=== PATIENT | male | born 1970 | race Caucasian/White ===

== ENCOUNTER 2017-01-30 15:39 | Emergency (ER) | payer MEDICAID ==
[2017-01-30 15:52] VITALS: BP 131/72
--- NOTE | 2017-01-30 16:34 | CR ---
Clinical history: 46-year-old male injured left index finger (table saw). Interpretation: Disruption of the skin and nail ulnar aspect distal end of the left index finger. The underlying terminal tuft distal phalanx appears to have been "nicked" by the saw but no fracture s. No proximal joint dislocation. No foreign bodies. Adjacent thumb and middle fingers unremarkable except for early arthritic changes .
--- NOTE | 2017-01-30 18:25 | EDM.PDOC ---
Scribed by Bertha Camargo 01/30/17 [id number] for Von Dan MD ED HPI GENERAL MEDICAL PROBLEM - General Chief Complaint: Laceration Stated Complaint: [id number] CUT FINGER AT WORK Time Seen by Provider: 01/30/17 15:50 Source of Information: Reports: Patient, RN, RN Notes Reviewed History Limitations: Reports: No Limitations - History of Present Illness INITIAL COMMENTS - FREE TEXT/NARRATIVE: Complaint of cut left distal index finger on a table saw blade while cutting wood at home. Denies any other injury. Last tetanus vaccine 2 years ago. Location: Reports: Upper Extremity, Left Quality: Reports: Ache Severity: Mild Improves with: Reports: None Worsens with: Reports: None Associated Symptoms: Reports: No Other Symptoms Right Hand Pain Score (Numeric/FACES): 4 - Related Data Allergies Allergy/AdvReac Type Severity Reaction Status Date / Time No Known Allergies Allergy Verified 05/27/15 20:45 Home Meds: Home Meds metFORMIN [Glucophage] 500 mg PO DAILY 05/27/15 [History] Social & Family History - Tobacco Use Smoking Status *Q: Current Every Day Smoker Years of Tobacco use: 15 Packs/Tins Daily: 1 - Recreational Drug Use Recreational Drug Use: No Review of Systems - Review of Systems Review Of Systems: ROS reveals no pertinent complaints other than HPI. ED EXAM, GENERAL - Physical Exam Exam: See Below Exam Limited By: No Limitations General Appearance: Alert, WD/WN, No Apparent Distress Respiratory/Chest: No Respiratory Distress Cardiovascular: Normal Peripheral Pulses (at bilateral upper extremities. ) Extremities: Other (Deep soft tissue avulsion of left distal index finger without nail damage. No active bleeding. No foreign body. ) Neurological: Alert, Oriented, CN II-XII Intact, Normal Cognition, Normal Gait, Normal Reflexes, No Motor/Sensory Deficits Psychiatric: Normal Affect, Normal Mood Course - Vital Signs Last Recorded V/S: Last Vital Signs Temp 36.6 C 01/30/17 15:50 Pulse 86 01/30/17 15:50 Resp 20 01/30/17 15:50 BP 131/72 01/30/17 15:50 Pulse Ox 100 01/30/17 15:50 - Radiology Interpretation Free Text/Narrative:: Left hand x-ray: Per rad report reveals no fracture. - Re-Assessments/Exams Free Text/Narrative Re-Assessment/Exam: 01/30/17 17:17 Wound cleansed and dressed by RN. 01/30/17 17:18 No procedural wound care by physician. Departure - Departure Time of Disposition: 17:14 Disposition: Home, Self-Care 01 Condition: Good Clinical Impression: Soft tissue avulsion, Laceration of left index finger - Discharge Information Instructions: Deep Skin Avulsion Referrals: Kisha Hsu, LE[facility] OPERATOR [Primary Care Provider] - Forms: ED Department Discharge Additional Instructions: Change the dressing in 24 hours. Try to leave the Xeroform in place as long as possible. Follow up in clinic next week if needed. Return to ER if any signs of infection develop. I have read and agree with the documentation that has been completed regarding this visit. By signing this record, I attest that the documentation was completed in my physical presence and is an accurate record of the encounter.
== END 2017-01-30 17:19 | disposition home or self-care (01) ==
LOC: DL.ED 15:39
DX: S61.211A Laceration without foreign body of left index finger without damage to nail, initial encounter (principal); F17.210 Nicotine dependence, cigarettes, uncomplicated; W26.9XXA Contact with unspecified sharp object(s), initial encounter
CPT/HCPCS: 73140-F1; 99283

== ENCOUNTER 2017-05-02 07:59 | Day surgery (SDC) | payer MEDICAID ==
[~2017-05-02 07:59] MED LIST: Midazolam 1 MG/ML 2 ML SDV ONE
[2017-05-02] MEDS ORDERED: Midazolam 1 MG/ML 2 ML SDV IV ONE ×4 (08:00→08:47)
[2017-05-02] MEDS ORDERED: fentaNYL 100 MCG/2 ML SDV IV ONE ×4 (08:00→08:52)
[2017-05-02] MEDS ORDERED: fentaNYL 100 MCG/2 ML SDV ONE (08:17)
[2017-05-02] MEDS ORDERED: Lactated Ringers 1,000 ML IV SCH (08:30)
--- NOTE | 2017-05-02 09:46 | OR ---
DATE: 05/02/2017 PREOPERATIVE DIAGNOSIS: Rectal bleeding. POSTOPERATIVE DIAGNOSIS: Rectal bleeding. PROCEDURES: Total colonoscopy with snare excision of a small 2-3 mm sigmoid polyp. ANESTHESIA: Conscious sedation. SPECIMEN: Polyps. OPERATIVE FINDINGS: Normal colonoscopy except for 1 small polyp. He really does not even have any significant hemorrhoids either external or internal that would account for his bleeding. The polyp should certainly be not the source of his bleeding. RECOMMENDATION: Follow up colonoscopy 5 years for polyp surveillance. INDICATION FOR PROCEDURE: This 47-year-old male has intermittent bright red rectal bleeding with bowel function. DESCRIPTION OF PROCEDURE: After adequate preparation, a colonoscope was inserted into the rectum. This was passed all the way to the cecum. Confirmation of the cecum was made by visualization of the ileocecal valve on palpation in the right lower quadrant. The bowel prep was excellent. On withdrawal of the scope, a good examination of the colon was accomplished. The patient has no large masses, bleeding sites, colitis, or diverticula. He did have one small 2 to 3 mm polyp in the lower sigmoid colon. A snare was placed around this and this was clipped off and retrieved for pathological evaluation. Rectal examination is normal. Air was suctioned from the colon and the scope was removed. [facility] /[id number]
[2017-05-02 12:32] VITALS: BP 114/75
== END 2017-05-02 10:47 | disposition home or self-care (01) ==
LOC: DL.ENDO 07:59
PROVIDERS: ATTEND Surgery
DX: K63.5 Polyp of colon (principal); F17.200 Nicotine dependence, unspecified, uncomplicated; E11.9 Type 2 diabetes mellitus without complications; Z79.4 Long term (current) use of insulin; Z79.899 Other long term (current) drug therapy
CPT/HCPCS: 45385; J2250; J3010; J7120

== ENCOUNTER 2017-11-24 10:37 | Emergency (ER) | payer MEDICAID, OTHER ==
[2017-11-24] MEDS ORDERED: Bacitracin Oint 1 GM U/D Packet TOP ONE (11:07)
[2017-11-24] MEDS ORDERED: Lidocaine 1% 30 ML SDV INJECT ONE (11:08)
[2017-11-24] MEDS ORDERED: Cephalexin 500 MG Cap PO ONE (11:08)
[2017-11-24 11:12] VITALS: BP 138/91
--- NOTE | 2017-11-24 12:26 | EDM.PDOC ---
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 Denies any crush injury. Patient controlled the bleeding with direct pressure. Reports minor abrasion to knuckles of the left hand, but denies any other injury. Last tetanus vaccine less then 5 years ago per patient. Onset: Today Location: Reports: Lower Extremity, Right Quality: Reports: Ache Severity: Mild Improves with: Reports: None Worsens with: Reports: None Associated Symptoms: Reports: No Other Symptoms - Related Data Allergies Allergy/AdvReac Type Severity Reaction Status Date / Time No Known Allergies Allergy Verified 05/02/17 08:26 Home Meds: Home Meds metFORMIN [Glucophage] 1,000 mg PO BID 05/27/15 [History] Aspirin [Ecotrin] 81 mg PO DAILY 04/30/17 [History] Cholecalciferol (Vitamin D3) [Vitamin D3] 1,000 mg PO DAILY 04/30/17 [History] Fish Oil/[place]-3 Fatty Acids [Fish Oil 1,000 MG] 1 gm PO DAILY 04/30/17 [History ] Insulin Aspart [Novolog Flexpen] 4 units SQ BIDMEALS 04/30/17 [History] Insulin Detemir [Levemir] 20 units SQ BEDTIME 04/30/17 [History] Multivitamin [Men's Multi-Vitamin] 1 tab PO DAILY 04/30/17 [History] Past Medical History HEENT History: Reports: Impaired Vision Cardiovascular History: Reports: High Cholesterol, Other (See Below) Other Cardiovascular History: CHRONIC VENOUS INSUFFICIENCY Respiratory History: Reports: None Gastrointestinal History: Reports: Hemorrhoids Genitourinary History: Reports: None Musculoskeletal History: Reports: None Neurological History: Reports: None Psychiatric History: Reports: None Endocrine/Metabolic History: Reports: Diabetes, Type II Hematologic History: Reports: None Immunologic History: Reports: None Oncologic (Cancer) History: Reports: None Dermatologic History: Reports: None - Infectious Disease History Infectious Disease History: Reports: Chicken Pox - Past Surgical History HEENT Surgical History: Reports: None Cardiovascular Surgical History: Reports: None Respiratory Surgical History: Reports: None GI Surgical History: Reports: None Endocrine Surgical History: Reports: None Neurological Surgical History: Reports: None Musculoskeletal Surgical History: Reports: Other (See Below) Other Musculoskeletal Surgeries/Procedures:: varicose vein stripping Social & Family History - Family History Family Medical History: Noncontributory - Tobacco Use Smoking Status *Q: Current Every Day Smoker Years of Tobacco use: 15 Packs/Tins Daily: 1 Second Hand Smoke Exposure: Yes - Caffeine Use Caffeine Use: Reports: Coffee, Soda - Recreational Drug Use Recreational Drug Use: No - Living Situation & Occupation Living situation: Reports: with Significant Other Occupation: Employed Review of Systems - Review of Systems Review Of Systems: ROS reveals no pertinent complaints other than HPI. ED EXAM, GENERAL - Physical Exam Exam: See Below Exam Limited By: No Limitations General Appearance: Alert, WD/WN, No Apparent Distress Head: Atraumatic, Normocephalic Respiratory/Chest: No Respiratory Distress Extremities: Other (right fourth finger 1.5cm irregular lacerationto depth of subcutaneous tissue.No active bleeding. No foriegn body. Full range of motion. ) Neurological: Alert, No Motor/Sensory Deficits ED TRAUMA EXTREMITY PROCEDURES - Laceration/Wound Repair Right Finger Lac/Wound Length In cm: 1.5 Appearance: Subcutaneous, Irregular, Clean Distal NVT: Neuro & Vascular Intact, No Tendon Injury Anesthetic Type: Digital Local Anesthesia - Lidocaine (Xylocaine): 1% Plain Local Anesthetic Volume: 4cc Skin Prep: Chlorhexidine (Hibiciens), Saline Saline Irrigation (cc's): 500 Exploration/Debridement/Repair: Wound Explored, In a Bloodless Field, Explored to Base, Minimal Debridement, Moderate Debridement Closed With: Sutures Suture Size: 3-0 # of Sutures: 8 Suture Type: Nylon, Interrupted Drain Placement: No Sterile Dressing Applied: Nurse Tetanus Status Addressed: Yes Complications: No Course - Vital Signs Last Recorded V/S: Last Vital Signs Temp 37.1 C 11/24/17 11:10 Pulse 90 11/24/17 11:10 Resp 18 11/24/17 11:10 BP 138/91 H 11/24/17 11:10 Pulse Ox 99 11/24/17 11:10 - Orders/Labs/Meds Meds: Medications Discontinued Medications Generic Name Dose Route Start Last Admin Trade Name Marie PRN Reason Stop Dose Admin Bacitracin 1 dose 11/24/17 11:07 Bacitracin Oint 1 Gm TOP 11/24/17 11:08 ONETIME ONE Cephalexin 500 mg 11/24/17 11:08 Keflex PO 11/24/17 11:09 ONETIME ONE Lidocaine HCl 30 ml 11/24/17 11:08 Xylocaine-Mpf 1% INJECT 11/24/17 11:09 ONETIME ONE Departure - Departure Time of Disposition: 12:18 Disposition: Home, Self-Care 01 Condition: Good Clinical Impression: Laceration of right ring finger Qualifiers: Encounter type: initial encounter Damage to nail status: without damage Foreign body presence: without foreign body Qualified Code(s): S61.214A - Laceration without foreign body of right ring finger without damage to nail, initial encounter - Discharge Information Instructions: Laceration Care, Adult, [id number] Forms: ED Department Discharge Additional Instructions: RX: Cephalexin 500mg. Follow up for suture removal in 7 to 10 days in clinic. Return to ER if any signs of infection develop. I have read and agree with the documentation that has been completed regarding this visit. By signing this record, I attest that the documentation was completed in my physical presence and is an accurate record of the encounter.
== END 2017-11-24 12:25 | disposition home or self-care (01) ==
LOC: DL.ED 10:37
DX: S61.214A Laceration without foreign body of right ring finger without damage to nail, initial encounter (principal); E78.00 Pure hypercholesterolemia, unspecified; E11.9 Type 2 diabetes mellitus without complications; F17.210 Nicotine dependence, cigarettes, uncomplicated; Z79.899 Other long term (current) drug therapy; Z79.82 Long term (current) use of aspirin; Z79.4 Long term (current) use of insulin; W26.8XXA Contact with other sharp object(s), not elsewhere classified, initial encounter
CPT/HCPCS: 12002; 99282; A9270

== ENCOUNTER 2018-09-17 18:47 | Emergency (ER) | payer BC, OTHER ==
[2018-09-17 19:55] VITALS: BP 112/86
== END 2018-09-17 19:50 | disposition left against medical advice (07) ==
LOC: DL.ED 18:47
DX: Z53.21 Procedure and treatment not carried out due to patient leaving prior to being seen by health care provider (principal)
CPT/HCPCS: 82962; 99281

== ENCOUNTER 2020-01-03 20:07 | Observation (INO) | payer BC ==
[2020-01-03] MEDS ORDERED: Sodium Chloride 0.9% 1,000 ML IV ONE ×2 (20:35→22:04)
[2020-01-03] MEDS ORDERED: Insulin Regular, Human 100 Units/ML 3 ML Vial IV ONE (20:52)
--- NOTE | 2020-01-03 21:14 | EDM.PDOC ---
ED HPI GENERAL MEDICAL PROBLEM - General Chief Complaint: Diabetic Complaint Stated Complaint: diabetic problems Time Seen by Provider: 01/03/20 20:30 Source of Information: Reports: Patient, RN History Limitations: Reports: No Limitations - History of Present Illness INITIAL COMMENTS - FREE TEXT/NARRATIVE: ED states was contacted by email on Saturday that blood sugar high and patient needed to go to ED. Stated was busy during weekend so presents now. Has not check blood sugar for greater than one month, Told to increase bedtime insulin to #* took 44 tonight. Has sliding scale but does not usually take. Increased frequency of urination, No weakness. Some swelling lower extremities right greater, Decreased when wears compression stockings at night. Denies skin break down. No nausea or vomiting. Relates eating 1-2 meals per day at most may go 3- 4 days without solid meal with only snack bar in afternoon. - Related Data Allergies Allergy/AdvReac Type Severity Reaction Status Date / Time No Known Allergies Allergy Verified 01/03/20 22:44 Home Meds: Home Meds metFORMIN [Glucophage] 1,000 mg PO BID 05/27/15 [History] Insulin Aspart [Novolog Flexpen] 6 units SQ BIDMEALS 04/30/17 [History] Insulin Detemir [Levemir] 33 units SQ BEDTIME 04/30/17 [History] Aspirin [Halfprin] 81 mg PO DAILY 06/03/19 [History] Fish Oil/Harper-3 Fatty Acids [Fish Oil 1,000 MG] 1 cap PO DAILY 06/03/19 [ History] Past Medical History HEENT History: Reports: Impaired Vision Cardiovascular History: Reports: Heart Murmur, High Cholesterol, Other (See Below) Other Cardiovascular History: CHRONIC VENOUS INSUFFICIENCY Respiratory History: Reports: None Gastrointestinal History: Reports: Colon Polyp, Hemorrhoids Genitourinary History: Reports: None Musculoskeletal History: Reports: Other (See Below) Other Musculoskeletal History: Fx rt. hand Neurological History: Reports: None Psychiatric History: Reports: Depression Other Psychiatric History: States he has been depressed since his devorce 4 year ago. Endocrine/Metabolic History: Reports: Diabetes, Type II Hematologic History: Reports: None Immunologic History: Reports: None Oncologic (Cancer) History: Reports: None Dermatologic History: Reports: None, Other (See Below) Other Dermatologic History: INFECTED CYST RIGHT SCROTUM - Infectious Disease History Infectious Disease History: Reports: Chicken Pox - Past Surgical History HEENT Surgical History: Reports: None Cardiovascular Surgical History: Reports: None Respiratory Surgical History: Reports: None GI Surgical History: Reports: Colonoscopy, Polypectomy Male Surgical History: Reports: None Endocrine Surgical History: Reports: None Neurological Surgical History: Reports: None Musculoskeletal Surgical History: Reports: Other (See Below) Other Musculoskeletal Surgeries/Procedures:: varicose vein stripping. PLATE AND SCREWS IN RIGHT HAND Dermatological Surgical History: Reports: None Social & Family History - Family History Family Medical History: Noncontributory - Tobacco Use Smoking Status *Q: Current Every Day Smoker Years of Tobacco use: 30 Packs/Tins Daily: 2 - Caffeine Use Caffeine Use: Reports: Coffee - Recreational Drug Use Recreational Drug Use: No - Living Situation & Occupation Living situation: Reports: with Significant Other Occupation: Employed ED ROS GENERAL - Review of Systems Review Of Systems: Comprehensive ROS is negative, except as noted in HPI. ED EXAM GENERAL NO PERIP PULSE - Physical Exam Exam: See Below Exam Limited By: No Limitations General Appearance: Alert, No Apparent Distress, Thin Eye Exam: Bilateral Eye: EOMI, PERRL Ears: Normal External Exam Nose: Normal Inspection Throat/Mouth: Normal Inspection, Normal Oropharynx, Normal Voice, No Airway Compromise Head: Atraumatic, Normocephalic Neck: Normal Inspection, Full Range of Motion Respiratory/Chest: No Respiratory Distress, Lungs Clear Cardiovascular: Normal Peripheral Pulses, Regular Rate, Rhythm GI/Abdominal: Normal Bowel Sounds, Soft, Non-Tender Extremities: Normal Inspection, Normal Range of Motion. No: No Pedal Edema (2+ bilateral), Leg Pain Neurological: Alert, Oriented, Normal Cognition Psychiatric: Normal Affect, Normal Mood, Tearful Skin Exam: Warm, Dry, Intact, Normal Color, No Rash Course - Vital Signs Last Recorded V/S: Last Vital Signs Temp 98.1 F 01/04/20 04:00 Pulse 83 01/04/20 04:00 Resp 18 01/04/20 04:00 BP 96/61 01/04/20 04:00 Pulse Ox 98 01/04/20 04:00 - Orders/Labs/Meds Orders: Active Orders 24 hr Category Date Time Status Insulin Regular, Human [HumuLIN R] 100 unit Med 01/03/20 22:00 Active Sodium Chloride 0.9% [Normal Saline] 99 ml IV TITRATE Medication Orders Acetaminophen (Tylenol) 650 mg PO Q4H PRN PRN Reason: Pain (Mild 1-3)/fever Last Admin: 01/04/20 02:41 Dose: 650 mg Aspirin (Halfprin) 81 mg PO DAILY [facility] Dextrose/Water (Dextrose 50% In Water) 25 ml IVPUSH ASDIRECTED PRN PRN Reason: Hypoglycemia Enoxaparin Sodium (Lovenox) 40 mg SUBCUT DAILY OH Glucagon (Glucagen) 1 mg IM ONETIME PRN PRN Reason: Hypoglycemia Insulin Human Regular 100 unit (/ Sodium Chloride) 100 mls @ 8.3 mls/hr IV TITRATE OH; Protocol Last Titration: 01/04/20 02:38 Dose: 0 units/kg/hr, 0 mls/hr Titration: 01/04/20 01:26 Dose: 0.11 units/kg/hr, 9.3 mls/hr Titration: 01/03/20 23:30 Dose: 0.07 units/kg/hr, 6.2 mls/hr Admin: 01/03/20 22:08 Dose: 0.1 units/kg/hr, 8.3 mls/hr Insulin Human Lispro (Humalog) 0 unit SUBCUT BIDAC OH; Protocol Ondansetron HCl (Zofran Odt) 4 mg PO Q6H PRN PRN Reason: nausea, able to take PO Ondansetron HCl (Zofran) 4 mg IVPUSH Q6H PRN PRN Reason: Nausea/Vomiting Senna/Docusate Sodium (Senna Plus) 1 tab PO BEDTIME PRN PRN Reason: Constipation Labs: Laboratory Tests 01/03/20 01/03/20 01/03/20 Range/Units 20:17 20:30 20:30 WBC 5.1 (5.0-10.0) 10^3/uL RBC 3.88 L (4.6-6.2) 10^6/uL Hgb 12.6 L (14.0-18.0) g/dL Hct 36.1 L (40.0-54.0) % MCV 93.0 D (80-100) fL MCH 32.5 (27.0-34.0) pg MCHC 34.9 (33.0-35.0) g/dL Plt Count 177 (150-450) 10^3/uL Neut % (Auto) 69.6 (42.2-75.2) % Lymph % (Auto) 18.1 L (20.5-50.1) % [place] % (Auto) 10.3 H (2-8) % Eos % (Auto) 1.4 (1.0-3.0) % Baso % (Auto) 0.6 (0.0-1.0) % Sodium 126 L (136-145) mmol/L Potassium 4.5 (3.5-5.1) mmol/L Chloride 91 L (98-107) mmol/L Carbon Dioxide 24 (21-32) mmol/L Anion Gap 15.5 H (7-13) mEq/L BUN 16 (7-18) mg/dL Creatinine 1.00 (0.70-1.30) mg/dL Est Cr Clr Drug Dosing 101.61 mL/min Estimated GFR (MDRD) > 60 BUN/Creatinine Ratio 16.0 (No establ ref range) Glucose 623 H* (74-99) mg/dL POC Glucose > 500 H* (70-105) mg/dl Lactic Acid (0.4-2.0) mmol/L Calcium 8.4 L (8.5-10.1) mg/dL Total Bilirubin 0.3 (0.2-1.0) mg/dL AST 20 (15-37) U/L ALT 29 (16-63) U/L Alkaline Phosphatase 112 (46-116) U/L Total Protein 5.7 L (6.4-8.2) g/dL Albumin 3.3 L (3.4-5.0) g/dL Globulin 2.4 g/dL Albumin/Globulin Ratio 1.38 Amylase 28 (25-115) U/L Lipase 111 (73-393) U/L Urine Color (YELLOW) Urine Appearance (CLEAR) Urine pH (5.0-9.0) Ur Specific [place] (1.005-1.030) Urine Protein (NEGATIVE) Urine Glucose (UA) (NEGATIVE) Urine Ketones (NEGATIVE) Urine Occult Blood (NEGATIVE) Urine Nitrite (NEGATIVE) Urine Bilirubin (NEGATIVE) Urine Urobilinogen (0.2-1.0) mg/dL Ur Leukocyte Esterase (NEGATIVE) Urine RBC /HPF Urine WBC (0-5/HPF) /HPF Ur Epithelial Cells (NOT SEEN) /HPF Urine Bacteria (0-FEW/HPF) /HPF Urine Opiates Screen (NEGATIVE) Ur Oxycodone Screen (NEGATIVE) Urine Methadone Screen (NEGATIVE) Ur Barbiturates Screen (NEGATIVE) U Tricyclic Antidepress (NEGATIVE) Ur Phencyclidine Scrn (NEGATIVE) Ur Amphetamine Screen (NEGATIVE) U Methamphetamines Scrn (NEGATIVE) Urine MDMA Screen (NEGATIVE) U Benzodiazepines Scrn (NEGATIVE) Urine Cocaine Screen (NEGATIVE) U Marijuana (THC) Screen (NEGATIVE) Ketones Negative 01/03/20 01/03/20 01/03/20 Range/Units 20:30 20:35 20:35 WBC (5.0-10.0) 10^3/uL RBC (4.6-6.2) 10^6/uL Hgb (14.0-18.0) g/dL Hct (40.0-54.0) % MCV (80-100) fL MCH (27.0-34.0) pg MCHC (33.0-35.0) g/dL Plt Count (150-450) 10^3/uL Neut % (Auto) (42.2-75.2) % Lymph % (Auto) (20.5-50.1) % [place] % (Auto) (2-8) % Eos % (Auto) (1.0-3.0) % Baso % (Auto) (0.0-1.0) % Sodium (136-145) mmol/L Potassium (3.5-5.1) mmol/L Chloride (98-107) mmol/L Carbon Dioxide (21-32) mmol/L Anion Gap (7-13) mEq/L BUN (7-18) mg/dL Creatinine (0.70-1.30) mg/dL Est Cr Clr Drug Dosing mL/min Estimated GFR (MDRD) BUN/Creatinine Ratio (No establ ref range) Glucose (74-99) mg/dL POC Glucose (70-105) mg/dl Lactic Acid 1.5 (0.4-2.0) mmol/L Calcium (8.5-10.1) mg/dL Total Bilirubin (0.2-1.0) mg/dL AST (15-37) U/L ALT (16-63) U/L Alkaline Phosphatase (46-116) U/L Total Protein (6.4-8.2) g/dL Albumin (3.4-5.0) g/dL Globulin g/dL Albumin/Globulin Ratio Amylase (25-115) U/L Lipase (73-393) U/L Urine Color Yellow (YELLOW) Urine Appearance Slightly cloudy (CLEAR) Urine pH 6.0 (5.0-9.0) Ur Specific [place] 1.010 (1.005-1.030) Urine Protein Negative (NEGATIVE) Urine Glucose (UA) >=1000 H (NEGATIVE) Urine Ketones Negative (NEGATIVE) Urine Occult Blood Trace-intact H (NEGATIVE) Urine Nitrite Negative (NEGATIVE) Urine Bilirubin Negative (NEGATIVE) Urine Urobilinogen 0.2 (0.2-1.0) mg/dL Ur Leukocyte Esterase Negative (NEGATIVE) Urine RBC Not seen /HPF Urine WBC Not seen (0-5/HPF) /HPF Ur Epithelial Cells Rare (NOT SEEN) /HPF Urine Bacteria Rare (0-FEW/HPF) /HPF Urine Opiates Screen Negative (NEGATIVE) Ur Oxycodone Screen Negative (NEGATIVE) Urine Methadone Screen Negative (NEGATIVE) Ur Barbiturates Screen Negative (NEGATIVE) U Tricyclic Antidepress Negative (NEGATIVE) Ur Phencyclidine Scrn Negative (NEGATIVE) Ur Amphetamine Screen Negative (NEGATIVE) U Methamphetamines Scrn Negative (NEGATIVE) Urine MDMA Screen Negative (NEGATIVE) U Benzodiazepines Scrn Negative (NEGATIVE) Urine Cocaine Screen Negative (NEGATIVE) U Marijuana (THC) Screen Negative (NEGATIVE) Ketones 01/03/20 Range/Units 21:42 WBC (5.0-10.0) 10^3/uL RBC (4.6-6.2) 10^6/uL Hgb (14.0-18.0) g/dL Hct (40.0-54.0) % MCV (80-100) fL MCH (27.0-34.0) pg MCHC (33.0-35.0) g/dL Plt Count (150-450) 10^3/uL Neut % (Auto) (42.2-75.2) % Lymph % (Auto) (20.5-50.1) % [place] % (Auto) (2-8) % Eos % (Auto) (1.0-3.0) % Baso % (Auto) (0.0-1.0) % Sodium (136-145) mmol/L Potassium (3.5-5.1) mmol/L Chloride (98-107) mmol/L Carbon Dioxide (21-32) mmol/L Anion Gap (7-13) mEq/L BUN (7-18) mg/dL Creatinine (0.70-1.30) mg/dL Est Cr Clr Drug Dosing mL/min Estimated GFR (MDRD) BUN/Creatinine Ratio (No establ ref range) Glucose (74-99) mg/dL POC Glucose > 500 H* (70-105) mg/dl Lactic Acid (0.4-2.0) mmol/L Calcium (8.5-10.1) mg/dL Total Bilirubin (0.2-1.0) mg/dL AST (15-37) U/L ALT (16-63) U/L Alkaline Phosphatase (46-116) U/L Total Protein (6.4-8.2) g/dL Albumin (3.4-5.0) g/dL Globulin g/dL Albumin/Globulin Ratio Amylase (25-115) U/L Lipase (73-393) U/L Urine Color (YELLOW) Urine Appearance (CLEAR) Urine pH (5.0-9.0) Ur Specific [place] (1.005-1.030) Urine Protein (NEGATIVE) Urine Glucose (UA) (NEGATIVE) Urine Ketones (NEGATIVE) Urine Occult Blood (NEGATIVE) Urine Nitrite (NEGATIVE) Urine Bilirubin (NEGATIVE) Urine Urobilinogen (0.2-1.0) mg/dL Ur Leukocyte Esterase (NEGATIVE) Urine RBC /HPF Urine WBC (0-5/HPF) /HPF Ur Epithelial Cells (NOT SEEN) /HPF Urine Bacteria (0-FEW/HPF) /HPF Urine Opiates Screen (NEGATIVE) Ur Oxycodone Screen (NEGATIVE) Urine Methadone Screen (NEGATIVE) Ur Barbiturates Screen (NEGATIVE) U Tricyclic Antidepress (NEGATIVE) Ur Phencyclidine Scrn (NEGATIVE) Ur Amphetamine Screen (NEGATIVE) U Methamphetamines Scrn (NEGATIVE) Urine MDMA Screen (NEGATIVE) U Benzodiazepines Scrn (NEGATIVE) Urine Cocaine Screen (NEGATIVE) U Marijuana (THC) Screen (NEGATIVE) Ketones Meds: Medications Generic Name Dose Route Start Last Admin Trade Name Freq PRN Reason Stop Dose Admin Acetaminophen 650 mg 01/03/20 22:46 01/04/20 02:41 Tylenol PO 650 mg Q4H PRN Administration Pain (Mild 1-3)/fever Aspirin 81 mg 01/04/20 09:00 Halfprin PO DAILY OH Dextrose/Water 25 ml 01/03/20 22:46 Dextrose 50% In Water IVPUSH ASDIRECTED PRN Hypoglycemia Enoxaparin Sodium 40 mg 01/04/20 09:00 Lovenox SUBCUT DAILY OH Glucagon 1 mg 01/03/20 22:46 Glucagen IM ONETIME PRN Hypoglycemia Insulin Human Regular 100 unit 100 mls @ 8.3 mls/hr 01/03/20 22:00 01/04/20 02:38 / Sodium Chloride IV 0 units/kg/hr TITRATE OH 0 mls/hr Titration Protocol 0.1 UNITS/KG/HR Insulin Human Lispro 0 unit 01/04/20 06:00 Humalog SUBCUT BIDAC [facility] Protocol Ondansetron HCl 4 mg 01/03/20 22:46 Zofran Odt PO Q6H PRN nausea, able to take PO Ondansetron HCl 4 mg 01/03/20 22:46 Zofran IVPUSH Q6H PRN Nausea/Vomiting Senna/Docusate Sodium 1 tab 01/03/20 22:46 Senna Plus PO BEDTIME PRN Constipation Discontinued Medications Generic Name Dose Route Start Last Admin Trade Name Freq PRN Reason Stop Dose Admin Sodium Chloride 1,000 mls @ 999 mls/hr 01/03/20 20:35 01/03/20 20:51 Normal Saline IV 01/03/20 21:35 999 mls/hr .BOLUS ONE Administration Sodium Chloride 1,000 mls @ 999 mls/hr 01/03/20 22:04 01/03/20 22:10 Normal Saline IV 01/03/20 23:04 999 mls/hr .BOLUS ONE Administration Insulin Glargine 33 unit 01/03/20 23:18 01/03/20 23:53 Lantus SUBCUT 01/03/20 23:19 33 unit ONETIME ONE Administration Insulin Human Regular 10 unit 01/03/20 20:52 01/03/20 20:59 Humulin R IV 01/03/20 20:53 10 units ONETIME ONE Administration Potassium Chloride 40 meq 01/03/20 23:14 01/03/20 23:52 Klor-Con 10 PO 01/03/20 23:15 40 meq ONETIME ONE Administration - Re-Assessments/Exams Free Text/Narrative Re-Assessment/Exam: 01/04/20 05:31 Dr Granda admit observation, hyperglycemia Departure - Departure Time of Disposition: 22:20 Disposition: Refer to Observation Condition: Good Clinical Impression: Hyperglycemia - Discharge Information Sepsis Event Note (ED) - Evaluation Sepsis Screening Result: No Definite Risk - Focused Exam Vital Signs: Vital Signs Temp Pulse Resp BP Pulse Ox 01/03/20 20:20 98.4 F 95 16 127/81 100 - My Orders Last 24 Hours: My Active Orders 01/03/20 22:00 Insulin Regular, Human [HumuLIN R] 100 unit Sodium Chloride 0.9% [Normal Saline] 99 ml IV TITRATE - Assessment/Plan Last 24 Hours: My Active Orders 01/03/20 22:00 Insulin Regular, Human [HumuLIN R] 100 unit Sodium Chloride 0.9% [Normal Saline] 99 ml IV TITRATE
[2020-01-03 21:42] LABS: ANION GAP 15.5 mEq/L (7-13); CHLORIDE,CL 91 mmol/L (98-107); SODIUM,NA 126 mmol/L (136-145)
[2020-01-03] MEDS ORDERED: Ondansetron 4 MG Tab.DIS PO PRN (22:46)
[2020-01-03] MEDS ORDERED: Ondansetron 4 MG/2 ML SDV IVPUSH PRN (22:46)
[2020-01-03] MEDS ORDERED: Glucagon,Human Recombinant 1 MG Vial IM PRN (22:46)
[2020-01-03] MEDS ORDERED: Acetaminophen 325 MG Tab PO PRN (22:46)
[2020-01-03] MEDS ORDERED: 50% Dextrose in Water 50 ML Syringe IVPUSH PRN (22:46)
--- NOTE | 2020-01-03 23:01 | PCM.HP ---
H&P History of Present Illness - General Date of Service: 01/03/20 Admit Problem/Dx: Admission Diagnosis/Problem Admission Diagnosis/Problem Hyperglycemia Source of Information: Patient, Old Records, Provider History Limitations: Reports: No Limitations - History of Present Illness Initial Comments - Free Text/Narative: Patient is a 49-year-old male with medical history significant for type 2 diabetes, chronic low back pain, chronic venous insufficiency, and tobacco use who presented to the ED with complaints of elevated blood sugar. Patient reports that he had his labs checked in clinic on Saturday. States that he was called and instructed to come to the ED because his blood sugar was high. Decided come tonight because he has obligations at home. Reports that he has been intermittently nonadherent to his medications because of stressors in his life but he does not want to expound upon. States that he does not have any problem with access to medications. Stated over the past 1 week, he has been taking his medications because he knew that he had almost hit rock bottom. He denies chest pain, shortness of breath, fevers, chills, nausea, vomiting, diarrhea, constipation, dysuria, hematuria, edema, or any other symptoms. He reports that he smokes 2 packs of cigarettes daily. Denies any illicit drug use. States that he drinks alcohol on special occasions, nocturia once a month. - Related Data Allergies/Adverse Reactions: Allergies Allergy/AdvReac Type Severity Reaction Status Date / Time No Known Allergies Allergy Verified 01/03/20 22:44 Home Medications: Home Meds metFORMIN [Glucophage] 1,000 mg PO BID 05/27/15 [History] Insulin Aspart [Novolog Flexpen] 6 units SQ BIDMEALS 04/30/17 [History] Insulin Detemir [Levemir] 33 units SQ BEDTIME 04/30/17 [History] Aspirin [Halfprin] 81 mg PO DAILY 06/03/19 [History] Fish Oil/[place]-3 Fatty Acids [Fish Oil 1,000 MG] 1 cap PO DAILY 06/03/19 [ History] Past Medical History HEENT History: Reports: Impaired Vision Cardiovascular History: Reports: Heart Murmur, High Cholesterol, Other (See Below) Other Cardiovascular History: CHRONIC VENOUS INSUFFICIENCY Respiratory History: Reports: None Gastrointestinal History: Reports: Colon Polyp, Hemorrhoids Genitourinary History: Reports: None Musculoskeletal History: Reports: Other (See Below) Other Musculoskeletal History: Fx rt. hand Neurological History: Reports: None Psychiatric History: Reports: Depression Other Psychiatric History: States he has been depressed since his devorce 4 year ago. Endocrine/Metabolic History: Reports: Diabetes, Type II Hematologic History: Reports: None Immunologic History: Reports: None Oncologic (Cancer) History: Reports: None Dermatologic History: Reports: None, Other (See Below) Other Dermatologic History: INFECTED CYST RIGHT SCROTUM - Infectious Disease History Infectious Disease History: Reports: Chicken Pox - Past Surgical History HEENT Surgical History: Reports: None Cardiovascular Surgical History: Reports: None Respiratory Surgical History: Reports: None GI Surgical History: Reports: Colonoscopy, Polypectomy Male Surgical History: Reports: None Endocrine Surgical History: Reports: None Neurological Surgical History: Reports: None Musculoskeletal Surgical History: Reports: Other (See Below) Other Musculoskeletal Surgeries/Procedures:: varicose vein stripping. PLATE AND SCREWS IN RIGHT HAND Dermatological Surgical History: Reports: None Social & Family History - Family History Family Medical History: Noncontributory - Tobacco Use Smoking Status *Q: Current Every Day Smoker Years of Tobacco use: 30 Packs/Tins Daily: 2 - Caffeine Use Caffeine Use: Reports: Coffee - Recreational Drug Use Recreational Drug Use: No - Living Situation & Occupation Living situation: Reports: with Significant Other Occupation: Employed H&P Review of Systems - Review of Systems: Review Of Systems: Comprehensive ROS is negative, except as noted in HPI. Exam - Exam Exam: See Below - Vital Signs Vital Signs: Last Vital Signs Temp 98.4 F 01/03/20 20:20 Pulse 95 01/03/20 20:20 Resp 16 01/03/20 20:20 BP 127/81 01/03/20 20:20 Pulse Ox 100 01/03/20 20:20 Weight: 183 lb 3.2 oz - Exam General: Alert, Oriented, Cooperative, Mild Distress HEENT: Conjunctiva Clear, EOMI, Hearing Intact, Pupils Equal, Pupils Reactive Neck: Supple, Trachea Midline Lungs: Clear to Auscultation, Normal Respiratory Effort Cardiovascular: Regular Rate, Regular Rhythm, Normal S1, Normal S2 GI/Abdominal Exam: Normal Bowel Sounds, Soft, Non-Tender, No Distention Extremities: Normal Inspection, Non-Tender, No Pedal Edema Peripheral Pulses: 2+: Brachial (R), Radial (L), Dorsalis Pedis (L), Dorsalis Pedis (R) Skin: Warm, Dry, Intact Neuro Extensive - Mental Status: Alert, Oriented x3, Normal Mood/Affect, Memory Intact Psychiatric: Alert, Normal Affect, Normal Mood - Patient Data Lab Results Last 24 hrs: Laboratory Results - last 24 hr 01/03/20 01/03/20 01/03/20 Range/Units 20:30 20:30 20:30 WBC 5.1 (5.0-10.0) 10^3/uL RBC 3.88 L (4.6-6.2) 10^6/uL Hgb 12.6 L (14.0-18.0) g/dL Hct 36.1 L (40.0-54.0) % MCV 93.0 D (80-100) fL MCH 32.5 (27.0-34.0) pg MCHC 34.9 (33.0-35.0) g/dL Plt Count 177 (150-450) 10^3/uL Neut % (Auto) 69.6 (42.2-75.2) % Lymph % (Auto) 18.1 L (20.5-50.1) % [place] % (Auto) 10.3 H (2-8) % Eos % (Auto) 1.4 (1.0-3.0) % Baso % (Auto) 0.6 (0.0-1.0) % Sodium 126 L (136-145) mmol/L Potassium 4.5 (3.5-5.1) mmol/L Chloride 91 L (98-107) mmol/L Carbon Dioxide 24 (21-32) mmol/L Anion Gap 15.5 H (7-13) mEq/L BUN 16 (7-18) mg/dL Creatinine 1.00 (0.70-1.30) mg/dL Est Cr Clr Drug Dosing 101.61 mL/min Estimated GFR (MDRD) > 60 BUN/Creatinine Ratio 16.0 (No establ ref range) Glucose 623 H* (74-99) mg/dL Lactic Acid 1.5 (0.4-2.0) mmol/L Calcium 8.4 L (8.5-10.1) mg/dL Total Bilirubin 0.3 (0.2-1.0) mg/dL AST 20 (15-37) U/L ALT 29 (16-63) U/L Alkaline Phosphatase 112 (46-116) U/L Total Protein 5.7 L (6.4-8.2) g/dL Albumin 3.3 L (3.4-5.0) g/dL Globulin 2.4 g/dL Albumin/Globulin Ratio 1.38 Amylase 28 (25-115) U/L Lipase 111 (73-393) U/L Urine Color (YELLOW) Urine Appearance (CLEAR) Urine pH (5.0-9.0) Ur Specific [place] (1.005-1.030) Urine Protein (NEGATIVE) Urine Glucose (UA) (NEGATIVE) Urine Ketones (NEGATIVE) Urine Occult Blood (NEGATIVE) Urine Nitrite (NEGATIVE) Urine Bilirubin (NEGATIVE) Urine Urobilinogen (0.2-1.0) mg/dL Ur Leukocyte Esterase (NEGATIVE) Urine RBC /HPF Urine WBC (0-5/HPF) /HPF Ur Epithelial Cells (NOT SEEN) /HPF Urine Bacteria (0-FEW/HPF) /HPF Urine Opiates Screen (NEGATIVE) Ur Oxycodone Screen (NEGATIVE) Urine Methadone Screen (NEGATIVE) Ur Barbiturates Screen (NEGATIVE) U Tricyclic Antidepress (NEGATIVE) Ur Phencyclidine Scrn (NEGATIVE) Ur Amphetamine Screen (NEGATIVE) U Methamphetamines Scrn (NEGATIVE) Urine MDMA Screen (NEGATIVE) U Benzodiazepines Scrn (NEGATIVE) Urine Cocaine Screen (NEGATIVE) U Marijuana (THC) Screen (NEGATIVE) Ketones Negative 01/03/20 01/03/20 01/03/20 Range/Units 20:35 20:35 22:20 WBC (5.0-10.0) 10^3/uL RBC (4.6-6.2) 10^6/uL Hgb (14.0-18.0) g/dL Hct (40.0-54.0) % MCV (80-100) fL MCH (27.0-34.0) pg MCHC (33.0-35.0) g/dL Plt Count (150-450) 10^3/uL Neut % (Auto) (42.2-75.2) % Lymph % (Auto) (20.5-50.1) % [place] % (Auto) (2-8) % Eos % (Auto) (1.0-3.0) % Baso % (Auto) (0.0-1.0) % Sodium (136-145) mmol/L Potassium (3.5-5.1) mmol/L Chloride (98-107) mmol/L Carbon Dioxide (21-32) mmol/L Anion Gap (7-13) mEq/L BUN (7-18) mg/dL Creatinine (0.70-1.30) mg/dL Est Cr Clr Drug Dosing mL/min Estimated GFR (MDRD) BUN/Creatinine Ratio (No establ ref range) Glucose 429 H* (74-99) mg/dL Lactic Acid (0.4-2.0) mmol/L Calcium (8.5-10.1) mg/dL Total Bilirubin (0.2-1.0) mg/dL AST (15-37) U/L ALT (16-63) U/L Alkaline Phosphatase (46-116) U/L Total Protein (6.4-8.2) g/dL Albumin (3.4-5.0) g/dL Globulin g/dL Albumin/Globulin Ratio Amylase (25-115) U/L Lipase (73-393) U/L Urine Color Yellow (YELLOW) Urine Appearance Slightly cloudy (CLEAR) Urine pH 6.0 (5.0-9.0) Ur Specific [place] 1.010 (1.005-1.030) Urine Protein Negative (NEGATIVE) Urine Glucose (UA) >=1000 H (NEGATIVE) Urine Ketones Negative (NEGATIVE) Urine Occult Blood Trace-intact H (NEGATIVE) Urine Nitrite Negative (NEGATIVE) Urine Bilirubin Negative (NEGATIVE) Urine Urobilinogen 0.2 (0.2-1.0) mg/dL Ur Leukocyte Esterase Negative (NEGATIVE) Urine RBC Not seen /HPF Urine WBC Not seen (0-5/HPF) /HPF Ur Epithelial Cells Rare (NOT SEEN) /HPF Urine Bacteria Rare (0-FEW/HPF) /HPF Urine Opiates Screen Negative (NEGATIVE) Ur Oxycodone Screen Negative (NEGATIVE) Urine Methadone Screen Negative (NEGATIVE) Ur Barbiturates Screen Negative (NEGATIVE) U Tricyclic Antidepress Negative (NEGATIVE) Ur Phencyclidine Scrn Negative (NEGATIVE) Ur Amphetamine Screen Negative (NEGATIVE) U Methamphetamines Scrn Negative (NEGATIVE) Urine MDMA Screen Negative (NEGATIVE) U Benzodiazepines Scrn Negative (NEGATIVE) Urine Cocaine Screen Negative (NEGATIVE) U Marijuana (THC) Screen Negative (NEGATIVE) Ketones Result Diagrams: 01/03/20 20:30 01/03/20 20:30 - Problem List (1) Hyperglycemia due to type 2 diabetes mellitus SNOMED Code(s): 813168676951961, 360161231798858 ICD Code: E11.65 - TYPE 2 DIABETES MELLITUS WITH HYPERGLYCEMIA Status: Acute Current Visit: Yes (2) Tobacco abuse SNOMED Code(s): 291991515 ICD Code: Z72.0 - TOBACCO USE Status: Acute Current Visit: Yes (3) Dyslipidemia SNOMED Code(s): 992390666 ICD Code: E78.5 - HYPERLIPIDEMIA, UNSPECIFIED Status: Acute Current Visit : Yes (4) Non-adherence to medical treatment SNOMED Code(s): 119455615 ICD Code: Z91.19 - PATIENT'S NONCOMPLIANCE W OTH MEDICAL TREATMENT AND REGIMEN Status: Acute Current Visit: Yes Problem List Initiated/Reviewed/Updated: Yes Orders Last 24hrs: Active Orders 24 hr Category Date Time Status Admission Diagnosis [ADT] Stat ADT 01/03/20 22:14 Ordered Admission Status [Patient Status] [ADT] Routine ADT 01/03/20 22:14 Active Blood Glucose Check, Bedside [RC] Q1H Care 01/03/20 22:46 Ordered Diabetes Education [RC] Click to Edit Care 01/03/20 22:47 Ordered Intake and Output [RC] QSHIFT Care 01/03/20 22:47 Ordered Notify Provider [RC] PRN Care 01/03/20 22:47 Ordered Oxygen Therapy [RC] PRN Care 01/03/20 22:47 Ordered Up ad Ruth [RC] ASDIRECTED Care 01/03/20 22:46 Ordered VTE/DVT Education [RC] PER UNIT ROUTINE Care 01/03/20 22:47 Ordered Vital Signs [RC] Q4H Care 01/03/20 22:47 Ordered Consistent Carbohydrate Diet [DIET] Diet 01/04/20 Breakfast Ordered BASIC METABOLIC PANEL,BMP [CHEM] AM Lab 01/04/20 05:11 Ordered MAGNESIUM [CHEM] AM Lab 01/04/20 05:11 Ordered PHOSPHORUS [CHEM] AM Lab 01/04/20 05:11 Ordered Acetaminophen [Tylenol] Med 01/03/20 22:46 Ordered 650 mg PO Q4H PRN Aspirin [Halfprin] Med 01/04/20 09:00 Ordered 81 mg PO DAILY Dextrose 50% in Water Med 01/03/20 22:46 Ordered 25 ml IVPUSH ASDIRECTED PRN Docusate Sodium/Sennosides [Senna Plus] Med 01/03/20 22:46 Ordered 1 tab PO BEDTIME PRN Enoxaparin [Lovenox] Med 01/04/20 09:00 Ordered 40 mg SUBCUT DAILY Glucagon,Human Recombinant [GlucaGen] Med 01/03/20 22:46 Ordered 1 mg IM ONETIME PRN Insulin Lispro [HumaLOG] Med 01/04/20 06:00 Ordered See Protocol SUBCUT BIDAC Insulin Regular, Human [HumuLIN R] 100 unit Med 01/03/20 22:00 Active Sodium Chloride 0.9% [Normal Saline] 99 ml IV TITRATE Ondansetron [Zofran ODT] Med 01/03/20 22:46 Ordered 4 mg PO Q6H PRN Ondansetron [Zofran] Med 01/03/20 22:46 Ordered 4 mg IVPUSH Q6H PRN Sodium Chloride 0.9% [Normal Saline] 1,000 ml Med 01/03/20 22:04 Active IV .BOLUS Resuscitation Status Routine Resus Stat 01/03/20 22:46 Ordered Medication Orders Acetaminophen (Tylenol) 650 mg PO Q4H PRN PRN Reason: Pain (Mild 1-3)/fever Aspirin (Halfprin) 81 mg PO DAILY [place] Dextrose/Water (Dextrose 50% In Water) 25 ml IVPUSH ASDIRECTED PRN PRN Reason: Hypoglycemia Enoxaparin Sodium (Lovenox) 40 mg SUBCUT DAILY OH Glucagon (Glucagen) 1 mg IM ONETIME PRN PRN Reason: Hypoglycemia Insulin Human Regular 100 unit (/ Sodium Chloride) 100 mls @ 8.3 mls/hr IV TITRATE OH; Protocol Last Admin: 01/03/20 22:08 Dose: 0.1 units/kg/hr, 8.3 mls/hr Sodium Chloride (Normal Saline) 1,000 mls @ 999 mls/hr IV .BOLUS ONE Stop: 01/03/20 23:04 Last Admin: 01/03/20 22:10 Dose: 999 mls/hr Insulin Human Lispro (Humalog) 0 unit SUBCUT BIDAC OH; Protocol Ondansetron HCl (Zofran Odt) 4 mg PO Q6H PRN PRN Reason: nausea, able to take PO Ondansetron HCl (Zofran) 4 mg IVPUSH Q6H PRN PRN Reason: Nausea/Vomiting Senna/Docusate Sodium (Senna Plus) 1 tab PO BEDTIME PRN PRN Reason: Constipation Assessment/Plan Comment:: #Hyperglycemia: Patient presented to the ED with complaints of elevated blood sugar. Reports that he was told by the primary care provider that his blood sugar was high and should come to the emergency room on Saturday. States that he could not make it on Saturday because he had some obligations. Reports he had been nonadherence to his medications intermittently. States that he has been taking his diabetes medications over the past 1 week because he knew that he almost hit [facility]. Chart review in [facility] shows that patient's blood glucose was 465 on Saturday with associated bicarb of 15.5. Patient's blood glucose in the ED was 623, bicarb was normal at 24, Received 10 units of IV insulin with blood glucose coming down to 429 Continue insulin drip Every hour blood glucose checks Give 40 mEq of oral potassium Monitor renal function 4 hours after insulin was started November transition off insulin drip once blood glucose is less than 200 Start patient's long-acting insulin #Type 2 diabetes: Hold oral diabetes medications Started on insulin drip Transition to basal and bolus insulin once blood glucose is less than 200 Sliding scale insulin and hypoglycemia protocol #Hyponatremia: Sodium of 126. Likely due to hyperglycemia Start on normal saline Monitor sodium levels #Dyslipidemia Continue Lipitor Peripheral neuropathy Continue gabapentin #Mood disorder Continue Wellbutrin #Tobacco use disorder Smoking cessation counseling Nonadherent to medications Counseling provided #DVT prophylaxis: Lovenox #GI prophylaxis: Diabetic diet CODE STATUS: Full per patient preference.
[2020-01-03] MEDS ORDERED: Potassium Chloride 10 MEQ Tab.ER PO ONE (23:14)
[2020-01-03] MEDS ORDERED: Insulin Glarg,Human.Rec.Analog 100 Unit/ML SUBCUT ONE (23:18)
[2020-01-04 02:23] LABS: ANION GAP 9.2 mEq/L (7-13); CHLORIDE,CL 102 mmol/L (98-107); SODIUM,NA 137 mmol/L (136-145)
[2020-01-04] MEDS ORDERED: Insulin Lispro 100 Units/ML 3 ML Vial SUBCUT SCH ×2 (06:00→12:00)
[2020-01-04 07:17] LABS: ANION GAP 9.4 mEq/L (7-13); CHLORIDE,CL 103 mmol/L (98-107); SODIUM,NA 139 mmol/L (136-145)
[2020-01-04] MEDS ORDERED: Potassium Chloride 10 MEQ Tab.ER PO ONE (08:09)
[2020-01-04] MEDS ORDERED: Enoxaparin 40 MG/0.4 ML Syringe SUBCUT SCH (09:00)
[2020-01-04] MEDS ORDERED: Aspirin 81 MG Tab.EC PO SCH (09:00)
[2020-01-04] MEDS ORDERED: Insulin Lispro 100 Units/ML 3 ML Vial SUBCUT ONE (10:20)
[2020-01-04 11:38] VITALS: BP 111/71; PULSE 87
--- NOTE | 2020-01-04 12:25 | PCM.DCSUM1 ---
Discharge Summary - Hospital Course Free Text/Narrative:: Patient is a 49-year-old male with medical history significant for type 2 diabetes, chronic low back pain, chronic venous insufficiency, and tobacco use who presented to the ED with complaints of elevated blood sugar. Patient reports that he had his labs checked in clinic on Saturday01/01/20. States that he was called and instructed to come to the ED because his blood sugar was high. He could not come to the ED right then but had to come 2 days later because he had certain things to take care of. On presentation, patient blood glucose was 623 with sodium of 126, potassium of 4.5, chloride of 91, bicarb of 24, BUN of 18, and creatinine of 1.0. Anion gap was 15.5. Patient was afebrile. There was no tachycardia or tachypnea. Lipase was normal. Review of his outpatient records showed that 2 days prior to presentation, his sodium was 133, potassium was 4.8, chloride was 94, bicarb was 15.5, glucose was 465, and anion gap was 235. His triglyceride level was 771, hemoglobin A1c was 12.1 , and beta hydroxybutyrate was 8.6, nml <0.4 mmol/L. Patient received 10 units of IV regular insulin with blood glucose coming down to 429. He was started on insulin drip. He was given 40 mEq of oral potassium replacement and started on IV normal saline. Sodium improved to 137 with potassium of 3.2, chloride of 102, bicarb of 29, anion gap of 9.2, BUN of 12, creatinine of 0.75, and blood glucose of 174. Potassium was replaced. Patient was counseled extensively on the importance of adhering to his medications. He reported that he was going with his best effort to be adherent to medications but could not make any promises. He declined referral to diabetes counselor. He is discharged to continue his home insulin regimen and metformin. He is to follow-up with PCP in about a week with home blood glucose readings. HPI Initial Comments: Patient is a 49-year-old male with medical history significant for type 2 diabetes, chronic low back pain, chronic venous insufficiency, and tobacco use who presented to the ED with complaints of elevated blood sugar. Patient reports that he had his labs checked in clinic on Saturday. States that he was called and instructed to come to the ED because his blood sugar was high. Decided come tonight because he has obligations at home. Reports that he has been intermittently nonadherent to his medications because of stressors in his life but he does not want to expound upon. States that he does not have any problem with access to medications. Stated over the past 1 week, he has been taking his medications because he knew that he had almost hit rock bottom. He denies chest pain, shortness of breath, fevers, chills, nausea, vomiting, diarrhea, constipation, dysuria, hematuria, edema, or any other symptoms. He reports that he smokes 2 packs of cigarettes daily. Denies any illicit drug use. States that he drinks alcohol on special occasions, nocturia once a month. Diagnosis: Stroke: No - Discharge Data Discharge Date: 01/04/20 Discharge Disposition: Home, Self-Care 01 Condition: Good - Referral to Home Health Primary Care Physician: PCP Unobtainable - Discharge Diagnosis/Problem(s) (1) Hyperglycemia due to type 2 diabetes mellitus SNOMED Code(s): 007066484420523, 760301879214349 ICD Code: E11.65 - TYPE 2 DIABETES MELLITUS WITH HYPERGLYCEMIA Status: Acute Current Visit: Yes (2) Tobacco abuse SNOMED Code(s): 084358523 ICD Code: Z72.0 - TOBACCO USE Status: Acute Current Visit: Yes (3) Dyslipidemia SNOMED Code(s): 416350381 ICD Code: E78.5 - HYPERLIPIDEMIA, UNSPECIFIED Status: Acute Current Visit : Yes (4) Non-adherence to medical treatment SNOMED Code(s): 268267996 ICD Code: Z91.19 - PATIENT'S NONCOMPLIANCE W OTH MEDICAL TREATMENT AND REGIMEN Status: Acute Current Visit: Yes - Discharge Plan *PRESCRIPTION DRUG MONITORING PROGRAM REVIEWED*: No *COPY OF PRESCRIPTION DRUG MONITORING REPORT IN PATIENT SARAH: No Home Medications: Home Meds metFORMIN [Glucophage] 1,000 mg PO BID 05/27/15 [History] Insulin Aspart [Novolog Flexpen] 6 units SQ BIDMEALS 04/30/17 [History] Insulin Detemir [Levemir] 33 units SQ BEDTIME 04/30/17 [History] Aspirin [Halfprin] 81 mg PO DAILY 06/03/19 [History] Fish Oil/[place]ler-3 Fatty Acids [Fish Oil 1,000 MG] 1 cap PO DAILY 06/03/19 [ History] Fenofibrate Nanocrystallized [Fenofibrate] 145 mg PO DAILY 01/04/20 [History] buPROPion HCL [Bupropion Xl] 300 mg PO DAILY 01/04/20 [History] Patient Handouts: Diabetes Mellitus and Foot Care, Tips for Eating Away From Home If You Have Diabetes, Form - Daily Diabetes Record, Diabetic Nephropathy, Diabetic Ketoacidosis, Correction Insulin, Type 2 Diabetes Mellitus, Self Care, Pediatric, [id number], Carbohydrate Counting for Diabetes Mellitus, Adult, Blood Glucose Monitoring, Adult, Preventing Diabetic Ketoacidosis, Insulin Injection Instructions, Using Insulin Pens, Pediatric, Diabetes Mellitus and Nutrition, Adult Referrals: PCP,Unobtain [Primary Care Provider] - - Discharge Summary/Plan Comment DC Time >30 min.: Yes - General Info Date of Service: 01/04/20 Admission Dx/Problem (Free Text: Admission Diagnosis/Problem Admission Diagnosis/Problem Hyperglycemia Subjective Update: Blood glucose improved overnight. Potassium of 3.4. Denies chest pain, shortness of breath, fevers, chills, nausea, vomiting, diarrhea, constipation, dysuria, hematuria, edema, or any new symptoms. Reports that he had quit taking his medications for about 4 years because he was depressed due to his divorce. - Patient Data Vitals - Most Recent: Last Vital Signs Temp 97.8 F 01/04/20 11:37 Pulse 87 01/04/20 11:37 Resp 17 01/04/20 11:37 BP 111/71 01/04/20 11:37 Pulse Ox 95 01/04/20 11:37 Weight - Most Recent: 180 lb 6.4 oz I&O - Last 24 hours: Intake & Output 01/03/20 01/04/20 01/04/20 22:59 06:59 14:59 Intake Total 1000 600 Balance 1000 600 Lab Results - Last 24 hrs: Laboratory Results - last 24 hr 01/03/20 01/03/20 01/03/20 Range/Units 20:17 20:30 20:30 WBC 5.1 (5.0-10.0) 10^3/uL RBC 3.88 L (4.6-6.2) 10^6/uL Hgb 12.6 L (14.0-18.0) g/dL Hct 36.1 L (40.0-54.0) % MCV 93.0 D (80-100) fL MCH 32.5 (27.0-34.0) pg MCHC 34.9 (33.0-35.0) g/dL Plt Count 177 (150-450) 10^3/uL Neut % (Auto) 69.6 (42.2-75.2) % Lymph % (Auto) 18.1 L (20.5-50.1) % Bacon % (Auto) 10.3 H (2-8) % Eos % (Auto) 1.4 (1.0-3.0) % Baso % (Auto) 0.6 (0.0-1.0) % Sodium 126 L (136-145) mmol/L Potassium 4.5 (3.5-5.1) mmol/L Chloride 91 L (98-107) mmol/L Carbon Dioxide 24 (21-32) mmol/L Anion Gap 15.5 H (7-13) mEq/L BUN 16 (7-18) mg/dL Creatinine 1.00 (0.70-1.30) mg/dL Est Cr Clr Drug Dosing 101.61 mL/min Estimated GFR (MDRD) > 60 BUN/Creatinine Ratio 16.0 (No establ ref range) Glucose 623 H* (74-99) mg/dL POC Glucose > 500 H* (70-105) mg/dl Lactic Acid (0.4-2.0) mmol/L Calcium 8.4 L (8.5-10.1) mg/dL Phosphorus (2.6-4.7) mg/dL Magnesium (1.8-2.4) mg/dL Total Bilirubin 0.3 (0.2-1.0) mg/dL AST 20 (15-37) U/L ALT 29 (16-63) U/L Alkaline Phosphatase 112 (46-116) U/L Total Protein 5.7 L (6.4-8.2) g/dL Albumin 3.3 L (3.4-5.0) g/dL Globulin 2.4 g/dL Albumin/Globulin Ratio 1.38 Amylase 28 (25-115) U/L Lipase 111 (73-393) U/L Urine Color (YELLOW) Urine Appearance (CLEAR) Urine pH (5.0-9.0) Ur Specific [place] (1.005-1.030) Urine Protein (NEGATIVE) Urine Glucose (UA) (NEGATIVE) Urine Ketones (NEGATIVE) Urine Occult Blood (NEGATIVE) Urine Nitrite (NEGATIVE) Urine Bilirubin (NEGATIVE) Urine Urobilinogen (0.2-1.0) mg/dL Ur Leukocyte Esterase (NEGATIVE) Urine RBC /HPF Urine WBC (0-5/HPF) /HPF Ur Epithelial Cells (NOT SEEN) /HPF Urine Bacteria (0-FEW/HPF) /HPF Urine Opiates Screen (NEGATIVE) Ur Oxycodone Screen (NEGATIVE) Urine Methadone Screen (NEGATIVE) Ur Barbiturates Screen (NEGATIVE) U Tricyclic Antidepress (NEGATIVE) Ur Phencyclidine Scrn (NEGATIVE) Ur Amphetamine Screen (NEGATIVE) U Methamphetamines Scrn (NEGATIVE) Urine MDMA Screen (NEGATIVE) U Benzodiazepines Scrn (NEGATIVE) Urine Cocaine Screen (NEGATIVE) U Marijuana (THC) Screen (NEGATIVE) Ketones Negative 01/03/20 01/03/20 01/03/20 Range/Units 20:30 20:35 20:35 WBC (5.0-10.0) 10^3/uL RBC (4.6-6.2) 10^6/uL Hgb (14.0-18.0) g/dL Hct (40.0-54.0) % MCV (80-100) fL MCH (27.0-34.0) pg MCHC (33.0-35.0) g/dL Plt Count (150-450) 10^3/uL Neut % (Auto) (42.2-75.2) % Lymph % (Auto) (20.5-50.1) % [place] % (Auto) (2-8) % Eos % (Auto) (1.0-3.0) % Baso % (Auto) (0.0-1.0) % Sodium (136-145) mmol/L Potassium (3.5-5.1) mmol/L Chloride (98-107) mmol/L Carbon Dioxide (21-32) mmol/L Anion Gap (7-13) mEq/L BUN (7-18) mg/dL Creatinine (0.70-1.30) mg/dL Est Cr Clr Drug Dosing mL/min Estimated GFR (MDRD) BUN/Creatinine Ratio (No establ ref range) Glucose (74-99) mg/dL POC Glucose (70-105) mg/dl Lactic Acid 1.5 (0.4-2.0) mmol/L Calcium (8.5-10.1) mg/dL Phosphorus (2.6-4.7) mg/dL Magnesium (1.8-2.4) mg/dL Total Bilirubin (0.2-1.0) mg/dL AST (15-37) U/L ALT (16-63) U/L Alkaline Phosphatase (46-116) U/L Total Protein (6.4-8.2) g/dL Albumin (3.4-5.0) g/dL Globulin g/dL Albumin/Globulin Ratio Amylase (25-115) U/L Lipase (73-393) U/L Urine Color Yellow (YELLOW) Urine Appearance Slightly cloudy (CLEAR) Urine pH 6.0 (5.0-9.0) Ur Specific [place] 1.010 (1.005-1.030) Urine Protein Negative (NEGATIVE) Urine Glucose (UA) >=1000 H (NEGATIVE) Urine Ketones Negative (NEGATIVE) Urine Occult Blood Trace-intact H (NEGATIVE) Urine Nitrite Negative (NEGATIVE) Urine Bilirubin Negative (NEGATIVE) Urine Urobilinogen 0.2 (0.2-1.0) mg/dL Ur Leukocyte Esterase Negative (NEGATIVE) Urine RBC Not seen /HPF Urine WBC Not seen (0-5/HPF) /HPF Ur Epithelial Cells Rare (NOT SEEN) /HPF Urine Bacteria Rare (0-FEW/HPF) /HPF Urine Opiates Screen Negative (NEGATIVE) Ur Oxycodone Screen Negative (NEGATIVE) Urine Methadone Screen Negative (NEGATIVE) Ur Barbiturates Screen Negative (NEGATIVE) U Tricyclic Antidepress Negative (NEGATIVE) Ur Phencyclidine Scrn Negative (NEGATIVE) Ur Amphetamine Screen Negative (NEGATIVE) U Methamphetamines Scrn Negative (NEGATIVE) Urine MDMA Screen Negative (NEGATIVE) U Benzodiazepines Scrn Negative (NEGATIVE) Urine Cocaine Screen Negative (NEGATIVE) U Marijuana (THC) Screen Negative (NEGATIVE) Ketones 01/03/20 01/03/20 01/03/20 Range/Units 21:42 22:20 23:26 WBC (5.0-10.0) 10^3/uL RBC (4.6-6.2) 10^6/uL Hgb (14.0-18.0) g/dL Hct (40.0-54.0) % MCV (80-100) fL MCH (27.0-34.0) pg MCHC (33.0-35.0) g/dL Plt Count (150-450) 10^3/uL Neut % (Auto) (42.2-75.2) % Lymph % (Auto) (20.5-50.1) % [place] % (Auto) (2-8) % Eos % (Auto) (1.0-3.0) % Baso % (Auto) (0.0-1.0) % Sodium (136-145) mmol/L Potassium (3.5-5.1) mmol/L Chloride (98-107) mmol/L Carbon Dioxide (21-32) mmol/L Anion Gap (7-13) mEq/L BUN (7-18) mg/dL Creatinine (0.70-1.30) mg/dL Est Cr Clr Drug Dosing mL/min Estimated GFR (MDRD) BUN/Creatinine Ratio (No establ ref range) Glucose 429 H* (74-99) mg/dL POC Glucose > 500 H* 337 H (70-105) mg/dl Lactic Acid (0.4-2.0) mmol/L Calcium (8.5-10.1) mg/dL Phosphorus (2.6-4.7) mg/dL Magnesium (1.8-2.4) mg/dL Total Bilirubin (0.2-1.0) mg/dL AST (15-37) U/L ALT (16-63) U/L Alkaline Phosphatase (46-116) U/L Total Protein (6.4-8.2) g/dL Albumin (3.4-5.0) g/dL Globulin g/dL Albumin/Globulin Ratio Amylase (25-115) U/L Lipase (73-393) U/L Urine Color (YELLOW) Urine Appearance (CLEAR) Urine pH (5.0-9.0) Ur Specific [place] (1.005-1.030) Urine Protein (NEGATIVE) Urine Glucose (UA) (NEGATIVE) Urine Ketones (NEGATIVE) Urine Occult Blood (NEGATIVE) Urine Nitrite (NEGATIVE) Urine Bilirubin (NEGATIVE) Urine Urobilinogen (0.2-1.0) mg/dL Ur Leukocyte Esterase (NEGATIVE) Urine RBC /HPF Urine WBC (0-5/HPF) /HPF Ur Epithelial Cells (NOT SEEN) /HPF Urine Bacteria (0-FEW/HPF) /HPF Urine Opiates Screen (NEGATIVE) Ur Oxycodone Screen (NEGATIVE) Urine Methadone Screen (NEGATIVE) Ur Barbiturates Screen (NEGATIVE) U Tricyclic Antidepress (NEGATIVE) Ur Phencyclidine Scrn (NEGATIVE) Ur Amphetamine Screen (NEGATIVE) U Methamphetamines Scrn (NEGATIVE) Urine MDMA Screen (NEGATIVE) U Benzodiazepines Scrn (NEGATIVE) Urine Cocaine Screen (NEGATIVE) U Marijuana (THC) Screen (NEGATIVE) Ketones 01/04/20 01/04/20 01/04/20 Range/Units 00:27 01:22 02:05 WBC (5.0-10.0) 10^3/uL RBC (4.6-6.2) 10^6/uL Hgb (14.0-18.0) g/dL Hct (40.0-54.0) % MCV (80-100) fL MCH (27.0-34.0) pg MCHC (33.0-35.0) g/dL Plt Count (150-450) 10^3/uL Neut % (Auto) (42.2-75.2) % Lymph % (Auto) (20.5-50.1) % [place] % (Auto) (2-8) % Eos % (Auto) (1.0-3.0) % Baso % (Auto) (0.0-1.0) % Sodium 137 D (136-145) mmol/L Potassium 3.2 L (3.5-5.1) mmol/L Chloride 102 (98-107) mmol/L Carbon Dioxide 29 (21-32) mmol/L Anion Gap 9.2 (7-13) mEq/L BUN 12 (7-18) mg/dL Creatinine 0.75 (0.70-1.30) mg/dL Est Cr Clr Drug Dosing 135.48 mL/min Estimated GFR (MDRD) > 60 BUN/Creatinine Ratio (No establ ref range) Glucose 174 H (74-99) mg/dL POC Glucose 263 H 224 H (70-105) mg/dl Lactic Acid (0.4-2.0) mmol/L Calcium 7.9 L (8.5-10.1) mg/dL Phosphorus (2.6-4.7) mg/dL Magnesium (1.8-2.4) mg/dL Total Bilirubin (0.2-1.0) mg/dL AST (15-37) U/L ALT (16-63) U/L Alkaline Phosphatase (46-116) U/L Total Protein (6.4-8.2) g/dL Albumin (3.4-5.0) g/dL Globulin g/dL Albumin/Globulin Ratio Amylase (25-115) U/L Lipase (73-393) U/L Urine Color (YELLOW) Urine Appearance (CLEAR) Urine pH (5.0-9.0) Ur Specific [place] (1.005-1.030) Urine Protein (NEGATIVE) Urine Glucose (UA) (NEGATIVE) Urine Ketones (NEGATIVE) Urine Occult Blood (NEGATIVE) Urine Nitrite (NEGATIVE) Urine Bilirubin (NEGATIVE) Urine Urobilinogen (0.2-1.0) mg/dL Ur Leukocyte Esterase (NEGATIVE) Urine RBC /HPF Urine WBC (0-5/HPF) /HPF Ur Epithelial Cells (NOT SEEN) /HPF Urine Bacteria (0-FEW/HPF) /HPF Urine Opiates Screen (NEGATIVE) Ur Oxycodone Screen (NEGATIVE) Urine Methadone Screen (NEGATIVE) Ur Barbiturates Screen (NEGATIVE) U Tricyclic Antidepress (NEGATIVE) Ur Phencyclidine Scrn (NEGATIVE) Ur Amphetamine Screen (NEGATIVE) U Methamphetamines Scrn (NEGATIVE) Urine MDMA Screen (NEGATIVE) U Benzodiazepines Scrn (NEGATIVE) Urine Cocaine Screen (NEGATIVE) U Marijuana (THC) Screen (NEGATIVE) Ketones 01/04/20 01/04/20 01/04/20 Range/Units 02:34 03:51 04:51 WBC (5.0-10.0) 10^3/uL RBC (4.6-6.2) 10^6/uL Hgb (14.0-18.0) g/dL Hct (40.0-54.0) % MCV (80-100) fL MCH (27.0-34.0) pg MCHC (33.0-35.0) g/dL Plt Count (150-450) 10^3/uL Neut % (Auto) (42.2-75.2) % Lymph % (Auto) (20.5-50.1) % [place] % (Auto) (2-8) % Eos % (Auto) (1.0-3.0) % Baso % (Auto) (0.0-1.0) % Sodium (136-145) mmol/L Potassium (3.5-5.1) mmol/L Chloride (98-107) mmol/L Carbon Dioxide (21-32) mmol/L Anion Gap (7-13) mEq/L BUN (7-18) mg/dL Creatinine (0.70-1.30) mg/dL Est Cr Clr Drug Dosing mL/min Estimated GFR (MDRD) BUN/Creatinine Ratio (No establ ref range) Glucose (74-99) mg/dL POC Glucose 147 H 91 90 (70-105) mg/dl Lactic Acid (0.4-2.0) mmol/L Calcium (8.5-10.1) mg/dL Phosphorus (2.6-4.7) mg/dL Magnesium (1.8-2.4) mg/dL Total Bilirubin (0.2-1.0) mg/dL AST (15-37) U/L ALT (16-63) U/L Alkaline Phosphatase (46-116) U/L Total Protein (6.4-8.2) g/dL Albumin (3.4-5.0) g/dL Globulin g/dL Albumin/Globulin Ratio Amylase (25-115) U/L Lipase (73-393) U/L Urine Color (YELLOW) Urine Appearance (CLEAR) Urine pH (5.0-9.0) Ur Specific [place] (1.005-1.030) Urine Protein (NEGATIVE) Urine Glucose (UA) (NEGATIVE) Urine Ketones (NEGATIVE) Urine Occult Blood (NEGATIVE) Urine Nitrite (NEGATIVE) Urine Bilirubin (NEGATIVE) Urine Urobilinogen (0.2-1.0) mg/dL Ur Leukocyte Esterase (NEGATIVE) Urine RBC /HPF Urine WBC (0-5/HPF) /HPF Ur Epithelial Cells (NOT SEEN) /HPF Urine Bacteria (0-FEW/HPF) /HPF Urine Opiates Screen (NEGATIVE) Ur Oxycodone Screen (NEGATIVE) Urine Methadone Screen (NEGATIVE) Ur Barbiturates Screen (NEGATIVE) U Tricyclic Antidepress (NEGATIVE) Ur Phencyclidine Scrn (NEGATIVE) Ur Amphetamine Screen (NEGATIVE) U Methamphetamines Scrn (NEGATIVE) Urine MDMA Screen (NEGATIVE) U Benzodiazepines Scrn (NEGATIVE) Urine Cocaine Screen (NEGATIVE) U Marijuana (THC) Screen (NEGATIVE) Ketones 06/01/04/20 01/04/20 Range/Units 06:15 06:29 07:55 WBC (5.0-10.0) 10^3/uL RBC (4.6-6.2) 10^6/uL Hgb (14.0-18.0) g/dL Hct (40.0-54.0) % MCV (80-100) fL MCH (27.0-34.0) pg MCHC (33.0-35.0) g/dL Plt Count (150-450) 10^3/uL Neut % (Auto) (42.2-75.2) % Lymph % (Auto) (20.5-50.1) % [place] % (Auto) (2-8) % Eos % (Auto) (1.0-3.0) % Baso % (Auto) (0.0-1.0) % Sodium 139 (136-145) mmol/L Potassium 3.4 L (3.5-5.1) mmol/L Chloride 103 (98-107) mmol/L Carbon Dioxide 30 (21-32) mmol/L Anion Gap 9.4 (7-13) mEq/L BUN 11 (7-18) mg/dL Creatinine 0.62 L (0.70-1.30) mg/dL Est Cr Clr Drug Dosing 163.14 mL/min Estimated GFR (MDRD) > 60 BUN/Creatinine Ratio (No establ ref range) Glucose 85 (74-99) mg/dL POC Glucose 76 151 H (70-105) mg/dl Lactic Acid (0.4-2.0) mmol/L Calcium 7.9 L (8.5-10.1) mg/dL Phosphorus 3.6 (2.6-4.7) mg/dL Magnesium 1.7 L (1.8-2.4) mg/dL Total Bilirubin (0.2-1.0) mg/dL AST (15-37) U/L ALT (16-63) U/L Alkaline Phosphatase (46-116) U/L Total Protein (6.4-8.2) g/dL Albumin (3.4-5.0) g/dL Globulin g/dL Albumin/Globulin Ratio Amylase (25-115) U/L Lipase (73-393) U/L Urine Color (YELLOW) Urine Appearance (CLEAR) Urine pH (5.0-9.0) Ur Specific [place] (1.005-1.030) Urine Protein (NEGATIVE) Urine Glucose (UA) (NEGATIVE) Urine Ketones (NEGATIVE) Urine Occult Blood (NEGATIVE) Urine Nitrite (NEGATIVE) Urine Bilirubin (NEGATIVE) Urine Urobilinogen (0.2-1.0) mg/dL Ur Leukocyte Esterase (NEGATIVE) Urine RBC /HPF Urine WBC (0-5/HPF) /HPF Ur Epithelial Cells (NOT SEEN) /HPF Urine Bacteria (0-FEW/HPF) /HPF Urine Opiates Screen (NEGATIVE) Ur Oxycodone Screen (NEGATIVE) Urine Methadone Screen (NEGATIVE) Ur Barbiturates Screen (NEGATIVE) U Tricyclic Antidepress (NEGATIVE) Ur Phencyclidine Scrn (NEGATIVE) Ur Amphetamine Screen (NEGATIVE) U Methamphetamines Scrn (NEGATIVE) Urine MDMA Screen (NEGATIVE) U Benzodiazepines Scrn (NEGATIVE) Urine Cocaine Screen (NEGATIVE) U Marijuana (THC) Screen (NEGATIVE) Ketones 01/04/20 01/04/20 01/04/20 Range/Units 09:17 10:05 11:31 WBC (5.0-10.0) 10^3/uL RBC (4.6-6.2) 10^6/uL Hgb (14.0-18.0) g/dL Hct (40.0-54.0) % MCV (80-100) fL MCH (27.0-34.0) pg MCHC (33.0-35.0) g/dL Plt Count (150-450) 10^3/uL Neut % (Auto) (42.2-75.2) % Lymph % (Auto) (20.5-50.1) % [place] % (Auto) (2-8) % Eos % (Auto) (1.0-3.0) % Baso % (Auto) (0.0-1.0) % Sodium (136-145) mmol/L Potassium (3.5-5.1) mmol/L Chloride (98-107) mmol/L Carbon Dioxide (21-32) mmol/L Anion Gap (7-13) mEq/L BUN (7-18) mg/dL Creatinine (0.70-1.30) mg/dL Est Cr Clr Drug Dosing mL/min Estimated GFR (MDRD) BUN/Creatinine Ratio (No establ ref range) Glucose (74-99) mg/dL POC Glucose 270 H 274 H 220 H (70-105) mg/dl Lactic Acid (0.4-2.0) mmol/L Calcium (8.5-10.1) mg/dL Phosphorus (2.6-4.7) mg/dL Magnesium (1.8-2.4) mg/dL Total Bilirubin (0.2-1.0) mg/dL AST (15-37) U/L ALT (16-63) U/L Alkaline Phosphatase (46-116) U/L Total Protein (6.4-8.2) g/dL Albumin (3.4-5.0) g/dL Globulin g/dL Albumin/Globulin Ratio Amylase (25-115) U/L Lipase (73-393) U/L Urine Color (YELLOW) Urine Appearance (CLEAR) Urine pH (5.0-9.0) Ur Specific [place] (1.005-1.030) Urine Protein (NEGATIVE) Urine Glucose (UA) (NEGATIVE) Urine Ketones (NEGATIVE) Urine Occult Blood (NEGATIVE) Urine Nitrite (NEGATIVE) Urine Bilirubin (NEGATIVE) Urine Urobilinogen (0.2-1.0) mg/dL Ur Leukocyte Esterase (NEGATIVE) Urine RBC /HPF Urine WBC (0-5/HPF) /HPF Ur Epithelial Cells (NOT SEEN) /HPF Urine Bacteria (0-FEW/HPF) /HPF Urine Opiates Screen (NEGATIVE) Ur Oxycodone Screen (NEGATIVE) Urine Methadone Screen (NEGATIVE) Ur Barbiturates Screen (NEGATIVE) U Tricyclic Antidepress (NEGATIVE) Ur Phencyclidine Scrn (NEGATIVE) Ur Amphetamine Screen (NEGATIVE) U Methamphetamines Scrn (NEGATIVE) Urine MDMA Screen (NEGATIVE) U Benzodiazepines Scrn (NEGATIVE) Urine Cocaine Screen (NEGATIVE) U Marijuana (THC) Screen (NEGATIVE) Ketones Med Orders - Current: Current Medications Acetaminophen (Tylenol) 650 mg PO Q4H PRN PRN Reason: Pain (Mild 1-3)/fever Last Admin: 01/04/20 02:41 Dose: 650 mg Aspirin (Halfprin) 81 mg PO DAILY [place] Last Admin: 01/04/20 09:26 Dose: 81 mg Dextrose/Water (Dextrose 50% In Water) 25 ml IVPUSH ASDIRECTED PRN PRN Reason: Hypoglycemia Enoxaparin Sodium (Lovenox) 40 mg SUBCUT DAILY [facility] Last Admin: 01/04/20 09:26 Dose: Not Given Glucagon (Glucagen) 1 mg IM ONETIME PRN PRN Reason: Hypoglycemia Insulin Human Lispro (Humalog) 0 unit SUBCUT WITHMEALSANDBED [facility]; Protocol Last Admin: 01/04/20 12:09 Dose: 4 units Magnesium Oxide (Magnesium Oxide) 250 mg PO WITHBREAKFAST [facility] Last Admin: 01/04/20 09:26 Dose: 250 mg Ondansetron HCl (Zofran Odt) 4 mg PO Q6H PRN PRN Reason: nausea, able to take PO Ondansetron HCl (Zofran) 4 mg IVPUSH Q6H PRN PRN Reason: Nausea/Vomiting Senna/Docusate Sodium (Senna Plus) 1 tab PO BEDTIME PRN PRN Reason: Constipation Discontinued Medications Sodium Chloride (Normal Saline) 1,000 mls @ 999 mls/hr IV .BOLUS ONE Stop: 01/03/20 21:35 Last Admin: 01/03/20 20:51 Dose: 999 mls/hr Insulin Human Regular 100 unit (/ Sodium Chloride) 100 mls @ 8.3 mls/hr IV TITRATE [facility]; Protocol Last Titration: 01/04/20 02:38 Dose: 0 units/kg/hr, 0 mls/hr Sodium Chloride (Normal Saline) 1,000 mls @ 999 mls/hr IV .BOLUS ONE Stop: 01/03/20 23:04 Last Admin: 01/03/20 22:10 Dose: 999 mls/hr Insulin Glargine (Lantus) 33 unit SUBCUT ONETIME ONE Stop: 01/03/20 23:19 Last Admin: 01/03/20 23:53 Dose: 33 unit Insulin Human Lispro (Humalog) 0 unit SUBCUT BIDAC [facility]; Protocol Insulin Human Lispro (Humalog) 6 unit SUBCUT ONETIME ONE Stop: 01/04/20 10:21 Last Admin: 01/04/20 10:53 Dose: 6 units Insulin Human Regular (Humulin R) 10 unit IV ONETIME ONE Stop: 01/03/20 20:53 Last Admin: 01/03/20 20:59 Dose: 10 units Potassium Chloride (Klor-Con 10) 40 meq PO ONETIME ONE Stop: 06/14/20 23:15 Last Admin: 01/03/20 23:52 Dose: 40 meq Potassium Chloride (Klor-Con 10) 40 meq PO ONETIME ONE Stop: 01/04/20 08:10 Last Admin: 01/04/20 09:26 Dose: 40 meq - Exam General: Reports: Alert, Oriented, Cooperative, No Acute Distress HEENT: Reports: Pupils Equal, Pupils Reactive, Mucous Membr. Moist/[place] Neck: Reports: Supple, Trachea Midline Lungs: Reports: Clear to Auscultation, Normal Respiratory Effort Cardiovascular: Reports: Regular Rate, Regular Rhythm, No Murmurs GI/Abdominal Exam: Normal Bowel Sounds, Soft, Non-Tender, No Organomegaly Extremities: Normal Inspection, Normal Range of Motion, Non-Tender Skin: Reports: Warm, Dry, Intact Neurological: Reports: No New Focal Deficit Psy/Mental Status: Reports: Alert, Normal Affect, Normal Mood
== END 2020-01-04 13:30 | disposition home or self-care (01) ==
LOC: DL.ED 20:07 → DL.MS 22:14
PROVIDERS: ADMIT Internal Medicine; ATTEND Internal Medicine
DX: E11.65 Type 2 diabetes mellitus with hyperglycemia (principal); E78.5 Hyperlipidemia, unspecified; E87.1 Hypo-osmolality and hyponatremia; E11.42 Type 2 diabetes mellitus with diabetic polyneuropathy; F39 Unspecified mood [affective] disorder; G89.29 Other chronic pain; M54.5 Low back pain; E78.00 Pure hypercholesterolemia, unspecified; F17.210 Nicotine dependence, cigarettes, uncomplicated; I87.2 Venous insufficiency (chronic) (peripheral); Z91.19 Patient's noncompliance with other medical treatment and regimen; Z79.4 Long term (current) use of insulin; Z79.82 Long term (current) use of aspirin; Z79.899 Other long term (current) drug therapy
CPT/HCPCS: 36415; 80048; 80053; 80305; 81001; 82009; 82150; 82947; 82962; 83605; 83690; 83735; 84100; 85025; 96360; 99284; A9270; J1815; J7030; J7050; 96361; G0378

== ENCOUNTER 2020-01-05 20:49 | Emergency (ER) | payer BC ==
[2020-01-05 21:02] VITALS: BP 118/79; PULSE 109
--- NOTE | 2020-01-05 21:25 | EDM.PDOC ---
ED HPI GENERAL MEDICAL PROBLEM - General Chief Complaint: Diabetic Complaint Stated Complaint: RIGHT LEG OG RICE Time Seen by Provider: 01/05/20 21:05 Source of Information: Reports: Patient History Limitations: Reports: No Limitations - History of Present Illness INITIAL COMMENTS - FREE TEXT/NARRATIVE: ED with c/o more than usual swelling to left leg. Admits not wearing compression stockings last noight and not today. Worked all day then sat down on stool with legs dependent. Reports trying to manage diabetes better, did take short acting insulin with supper. - Related Data Allergies Allergy/AdvReac Type Severity Reaction Status Date / Time No Known Allergies Allergy Verified 01/05/20 21:04 Home Meds: Home Meds metFORMIN [Glucophage] 1,000 mg PO BID 05/27/15 [History] Insulin Aspart [Novolog Flexpen] 6 units SQ BIDMEALS 04/30/17 [History] Insulin Detemir [Levemir] 33 units SQ BEDTIME 04/30/17 [History] Aspirin [Halfprin] 81 mg PO DAILY 06/03/19 [History] Fish Oil/[employer] [place]-3 Fatty Acids [Fish Oil 1,000 MG] 1 cap PO DAILY 06/03/19 [ History] Fenofibrate Nanocrystallized [Fenofibrate] 145 mg PO DAILY 01/04/20 [History] buPROPion HCL [Bupropion Xl] 300 mg PO DAILY 01/04/20 [History] Past Medical History HEENT History: Reports: Impaired Vision Cardiovascular History: Reports: Heart Murmur, High Cholesterol, Other (See Below) Other Cardiovascular History: CHRONIC VENOUS INSUFFICIENCY Respiratory History: Reports: None Gastrointestinal History: Reports: Colon Polyp, Hemorrhoids Genitourinary History: Reports: None Musculoskeletal History: Reports: Other (See Below) Other Musculoskeletal History: Fx rt. hand Neurological History: Reports: None Psychiatric History: Reports: Depression Other Psychiatric History: States he has been depressed since his devorce 4 year ago. Endocrine/Metabolic History: Reports: Diabetes, Type II Hematologic History: Reports: None Immunologic History: Reports: None Oncologic (Cancer) History: Reports: None Dermatologic History: Reports: None, Other (See Below) Other Dermatologic History: INFECTED CYST RIGHT SCROTUM - Infectious Disease History Infectious Disease History: Reports: Chicken Pox - Past Surgical History HEENT Surgical History: Reports: None Cardiovascular Surgical History: Reports: None Respiratory Surgical History: Reports: None GI Surgical History: Reports: Colonoscopy, Polypectomy Male Surgical History: Reports: None Endocrine Surgical History: Reports: None Neurological Surgical History: Reports: None Musculoskeletal Surgical History: Reports: Other (See Below) Other Musculoskeletal Surgeries/Procedures:: varicose vein stripping. PLATE AND SCREWS IN RIGHT HAND Dermatological Surgical History: Reports: None Social & Family History - Family History Family Medical History: Noncontributory - Tobacco Use Smoking Status *Q: Current Every Day Smoker Years of Tobacco use: 34 Packs/Tins Daily: 2 Used Tobacco, but Quit: No Second Hand Smoke Exposure: Yes - Caffeine Use Caffeine Use: Reports: Coffee, Soda - Recreational Drug Use Recreational Drug Use: No - Living Situation & Occupation Living situation: Reports: with Significant Other Occupation: Employed ED ROS GENERAL - Review of Systems Review Of Systems: Comprehensive ROS is negative, except as noted in HPI. ED EXAM GENERAL NO PERIP PULSE - Physical Exam Exam: See Below Exam Limited By: No Limitations General Appearance: Alert, No Apparent Distress Eye Exam: Bilateral Eye: EOMI Ears: Normal External Exam Nose: Normal Inspection Throat/Mouth: Normal Inspection Head: Atraumatic, Normocephalic Neck: Normal Inspection Respiratory/Chest: No Respiratory Distress, Lungs Clear, Normal Breath Sounds Cardiovascular: Regular Rate, Rhythm. No: No Edema (3+ left and 2+ right), JVD GI/Abdominal: Soft Back Exam: Normal Inspection, Full Range of Motion Extremities: Normal Range of Motion. No: Akanksha's Sign, Limited Range of Motion , Mottled, Pallor Neurological: Alert, Oriented, Normal Cognition Psychiatric: Normal Affect Skin Exam: Warm, Dry, Intact, Normal Color Course - Vital Signs Last Recorded V/S: Last Vital Signs Temp 98.5 F 01/05/20 21:01 Pulse 109 H 01/05/20 21:01 Resp 18 01/05/20 21:01 BP 118/79 01/05/20 21:01 Pulse Ox 95 01/05/20 21:01 - Orders/Labs/Meds Orders: Active Orders 24 hr Category Date Time Status Blood Glucose Check, Bedside [RC] ONETIME Care 01/05/20 20:55 Active Furosemide [Lasix] Med 01/05/20 22:10 Once 20 mg IVPUSH NOW ONE Medication Orders Furosemide (Lasix) 20 mg IVPUSH NOW ONE Stop: 01/05/20 22:11 Labs: Laboratory Tests 01/05/20 01/05/20 01/05/20 Range/Units 20:57 21:03 21:03 WBC 6.7 (5.0-10.0) 10^3/uL RBC 3.89 L (4.6-6.2) 10^6/uL Hgb 12.7 L (14.0-18.0) g/dL Hct 36.2 L (40.0-54.0) % MCV 93.1 (80-100) fL MCH 32.6 (27.0-34.0) pg MCHC 35.1 H (33.0-35.0) g/dL Plt Count 206 (150-450) 10^3/uL Neut % (Auto) 65.9 (42.2-75.2) % Lymph % (Auto) 22.5 (20.5-50.1) % [place] % (Auto) 9.6 H (2-8) % Eos % (Auto) 1.5 (1.0-3.0) % Baso % (Auto) 0.5 (0.0-1.0) % D-Dimer, Quantitative (0-400) ng/mL Sodium 136 (136-145) mmol/L Potassium 4.1 (3.5-5.1) mmol/L Chloride 99 (98-107) mmol/L Carbon Dioxide 27 (21-32) mmol/L Anion Gap 14.1 H (7-13) mEq/L BUN 12 (7-18) mg/dL Creatinine 1.05 (0.70-1.30) mg/dL Est Cr Clr Drug Dosing 96.77 mL/min Estimated GFR (MDRD) > 60 BUN/Creatinine Ratio 11.4 (No establ ref range) Glucose 207 H (74-99) mg/dL POC Glucose 204 H (70-105) mg/dl Calcium 8.1 L (8.5-10.1) mg/dL Magnesium (1.8-2.4) mg/dL Total Bilirubin 0.3 (0.2-1.0) mg/dL AST 26 (15-37) U/L ALT 32 (16-63) U/L Alkaline Phosphatase 82 (46-116) U/L B-Natriuretic Peptide 20 (0-100) pg/ml Total Protein 5.9 L (6.4-8.2) g/dL Albumin 3.2 L (3.4-5.0) g/dL Globulin 2.7 Albumin/Globulin Ratio 1.19 01/05/20 01/05/20 Range/Units 21:03 21:03 WBC (5.0-10.0) 10^3/uL RBC (4.6-6.2) 10^6/uL Hgb (14.0-18.0) g/dL Hct (40.0-54.0) % MCV (80-100) fL MCH (27.0-34.0) pg MCHC (33.0-35.0) g/dL Plt Count (150-450) 10^3/uL Neut % (Auto) (42.2-75.2) % Lymph % (Auto) (20.5-50.1) % [place] % (Auto) (2-8) % Eos % (Auto) (1.0-3.0) % Baso % (Auto) (0.0-1.0) % D-Dimer, Quantitative 164 (0-400) ng/mL Sodium (136-145) mmol/L Potassium (3.5-5.1) mmol/L Chloride (98-107) mmol/L Carbon Dioxide (21-32) mmol/L Anion Gap (7-13) mEq/L BUN (7-18) mg/dL Creatinine (0.70-1.30) mg/dL Est Cr Clr Drug Dosing mL/min Estimated GFR (MDRD) BUN/Creatinine Ratio (No establ ref range) Glucose (74-99) mg/dL POC Glucose (70-105) mg/dl Calcium (8.5-10.1) mg/dL Magnesium 1.7 L (1.8-2.4) mg/dL Total Bilirubin (0.2-1.0) mg/dL AST (15-37) U/L ALT (16-63) U/L Alkaline Phosphatase (46-116) U/L B-Natriuretic Peptide (0-100) pg/ml Total Protein (6.4-8.2) g/dL Albumin (3.4-5.0) g/dL Globulin Albumin/Globulin Ratio Meds: Medications Generic Name Dose Route Start Last Admin Trade Name Freq PRN Reason Stop Dose Admin Furosemide 20 mg 01/05/20 22:10 Lasix IVPUSH 01/05/20 22:11 NOW ONE Discontinued Medications Generic Name Dose Route Start Last Admin Trade Name Freq PRN Reason Stop Dose Admin Furosemide 20 mg 01/05/20 22:07 Lasix PO 01/05/20 22:08 ONETIME ONE - Re-Assessments/Exams Free Text/Narrative Re-Assessment/Exam: 01/05/20 22:12 Infromed of results of labs. D-dimer negative. Wear compression hose during day , clinic follow up this week Departure - Departure Time of Disposition: 22:10 Disposition: Home, Self-Care 01 Condition: Good Clinical Impression: Peripheral edema, Hyperglycemia due to diabetes mellitus - Discharge Information *PRESCRIPTION DRUG MONITORING PROGRAM REVIEWED*: No *COPY OF PRESCRIPTION DRUG MONITORING REPORT IN PATIENT SARAH: No Instructions: Edema, [id number] Forms: ED Department Discharge Additional Instructions: elevate extremities compression hose during day follow up in clinic this week to recheck labs Sepsis Event Note (ED) - Evaluation Sepsis Screening Result: No Definite Risk - Focused Exam Vital Signs: Vital Signs Temp Pulse Resp BP Pulse Ox 01/05/20 21:01 98.5 F 109 H 18 118/79 95 - My Orders Last 24 Hours: My Active Orders 01/05/20 20:55 Blood Glucose Check, Bedside [RC] ONETIME 01/05/20 22:10 Furosemide [Lasix] 20 mg IVPUSH NOW ONE - Assessment/Plan Last 24 Hours: My Active Orders 01/05/20 20:55 Blood Glucose Check, Bedside [RC] ONETIME 01/05/20 22:10 Furosemide [Lasix] 20 mg IVPUSH NOW ONE
[2020-01-05 21:27] LABS: ANION GAP 14.1 mEq/L (7-13); CHLORIDE,CL 99 mmol/L (98-107); SODIUM,NA 136 mmol/L (136-145)
[2020-01-05] MEDS ORDERED: Furosemide 20 MG Tab PO ONE (22:07)
[2020-01-05] MEDS ORDERED: Furosemide 40 MG/4 ML VIAL IVPUSH ONE (22:10)
== END 2020-01-05 22:26 | disposition home or self-care (01) ==
LOC: DL.ED 20:49
DX: E11.65 Type 2 diabetes mellitus with hyperglycemia (principal); R60.0 Localized edema; F32.9 Major depressive disorder, single episode, unspecified; F17.210 Nicotine dependence, cigarettes, uncomplicated; Z79.899 Other long term (current) drug therapy; Z79.82 Long term (current) use of aspirin; Z79.4 Long term (current) use of insulin
CPT/HCPCS: 36415; 80053; 82962; 83735; 83880; 85025; 85379; 96374; 99283; J1940

== ENCOUNTER 2020-01-10 14:49 | Emergency (ER) | payer BC ==
[2020-01-10 15:03] VITALS: BP 128/98; PULSE 79
--- NOTE | 2020-01-10 15:44 | CR ---
PROCEDURE INFORMATION: Exam: XR Abdomen, 2 Views Exam date and time: 01/10/2020 3:28 PM Age: 49 years old Clinical indication: Other: Pain; Additional info: Left lower quadrant pain TECHNIQUE: Imaging protocol: XR of the abdomen. Views: 2 Views. COMPARISON: No relevant prior studies available. FINDINGS: Gastrointestinal tract: There is a moderate amount of stool throughout the colon. Bowel gas pattern is nonobstructive. There is air-fluid level in transverse colon a appreciated on upright view. Intraperitoneal space: Normal. No free air. Bones/joints: Unremarkable for age. IMPRESSION: Mild colonic ileus
[2020-01-10 16:02] LABS: ANION GAP 12.9 mEq/L (7-13); CHLORIDE,CL 97 mmol/L (98-107); SODIUM,NA 137 mmol/L (136-145)
--- NOTE | 2020-01-10 16:44 | EDM.PDOC ---
Scribed by Bertha Camargo 01/10/20 3651 for Joey Roy PA ED HPI GENERAL MEDICAL PROBLEM - General Chief Complaint: Abdominal Pain Stated Complaint: LEFT SIDE PAIN Time Seen by Provider: 01/10/20 15:47 Source of Information: Reports: Patient, RN, RN Notes Reviewed History Limitations: Reports: No Limitations - History of Present Illness INITIAL COMMENTS - FREE TEXT/NARRATIVE: A 49-year-old male presents to ED with lower abdominal pain on left side. It started 30 minutes ago. He has intermittent pains. He started Lasix on Saturday for lower extremity swelling. Patient also reports some weakness and brief nausea when he arrived to the ED. The patient reports morning blood sugars have been 80-120 and evening blood sugars have been 200-300. The patient reports checks blood sugar 1-2 times per day. Onset: Today Duration: Getting Worse Location: Reports: Abdomen Quality: Reports: Ache Severity: Moderate Improves with: Reports: None Worsens with: Reports: None Associated Symptoms: Reports: No Other Symptoms - Related Data Allergies Allergy/AdvReac Type Severity Reaction Status Date / Time No Known Allergies Allergy Verified 01/10/20 15:01 Home Meds: Home Meds metFORMIN [Glucophage] 1,000 mg PO BID 05/27/15 [History] Insulin Aspart [Novolog Flexpen] 6 units SQ BIDMEALS 04/30/17 [History] Insulin Detemir [Levemir] 33 units SQ BEDTIME 04/30/17 [History] Aspirin [Halfprin] 81 mg PO DAILY 06/03/19 [History] Fish Oil/[place]-3 Fatty Acids [Fish Oil 1,000 MG] 1 cap PO DAILY 06/03/19 [History] Fenofibrate Nanocrystallized [Fenofibrate] 145 mg PO DAILY 01/04/20 [History] buPROPion HCL [Bupropion Xl] 300 mg PO DAILY 01/04/20 [History] Furosemide 1 tab PO ASDIRECTED 01/10/20 [History] Past Medical History HEENT History: Reports: Impaired Vision Cardiovascular History: Reports: Heart Murmur, High Cholesterol, Other (See Below) Other Cardiovascular History: CHRONIC VENOUS INSUFFICIENCY Respiratory History: Reports: None Gastrointestinal History: Reports: Colon Polyp, Hemorrhoids Genitourinary History: Reports: None Musculoskeletal History: Reports: Other (See Below) Other Musculoskeletal History: Fx rt. hand Neurological History: Reports: None Psychiatric History: Reports: Depression Other Psychiatric History: States he has been depressed since his devorce 4 year ago. Endocrine/Metabolic History: Reports: Diabetes, Type II Hematologic History: Reports: None Immunologic History: Reports: None Oncologic (Cancer) History: Reports: None Dermatologic History: Reports: None, Other (See Below) Other Dermatologic History: INFECTED CYST RIGHT SCROTUM - Infectious Disease History Infectious Disease History: Reports: Chicken Pox - Past Surgical History HEENT Surgical History: Reports: None Cardiovascular Surgical History: Reports: None Respiratory Surgical History: Reports: None GI Surgical History: Reports: Colonoscopy, Polypectomy Male Surgical History: Reports: None Endocrine Surgical History: Reports: None Neurological Surgical History: Reports: None Musculoskeletal Surgical History: Reports: Other (See Below) Other Musculoskeletal Surgeries/Procedures:: varicose vein stripping. PLATE AND SCREWS IN RIGHT HAND Dermatological Surgical History: Reports: None Social & Family History - Family History Family Medical History: Noncontributory - Tobacco Use Smoking Status *Q: Never Smoker - Caffeine Use Caffeine Use: Reports: Coffee, Soda - Recreational Drug Use Recreational Drug Use: No - Living Situation & Occupation Living situation: Reports: with Significant Other Occupation: Employed ED ROS GENERAL - Review of Systems Review Of Systems: Comprehensive ROS is negative, except as noted in HPI. ED EXAM, GI/ABD - Physical Exam Exam: See Below Eyes: Bilateral: Normal Appearance Ears: Other (bilateral hearing aids) Nose: Normal Inspection, Normal Mucosa, No Blood Throat/Mouth: Normal Inspection, Normal Lips, Normal Teeth, Normal Gums, Normal Oropharynx, Normal Voice, No Airway Compromise Head: Atraumatic, Normocephalic Neck: Normal Inspection, Supple, Non-Tender, Full Range of Motion Respiratory/Chest: No Respiratory Distress, Lungs Clear, Normal Breath Sounds, No Accessory Muscle Use, Chest Non-Tender Cardiovascular: Normal Peripheral Pulses, Regular Rate, Rhythm, No Edema, No Gallop, No JVD, No Murmur, No Rub GI/Abdominal Exam: Normal Bowel Sounds, Non-Tender (on palpation) (Male) Exam: Deferred Rectal (Males) Exam: Deferred Back Exam: Normal Inspection, Full Range of Motion, NT Extremities: Normal Inspection, Normal Range of Motion, Non-Tender, Normal Capillary Refill, No Pedal Edema Neurological: Alert, Oriented, CN II-XII Intact, Normal Cognition, Normal Gait, Normal Reflexes, No Motor/Sensory Deficits Psychiatric: Normal Affect, Normal Mood Skin Exam: Warm, Dry, Intact, Normal Color, No Rash Lymphatic: No Adenopathy Course - Vital Signs Last Recorded V/S: Last Vital Signs Temp 36.9 C 01/10/20 15:01 Pulse 79 01/10/20 15:01 Resp 18 01/10/20 15:01 BP 128/98 H 01/10/20 15:01 Pulse Ox 95 01/10/20 15:01 - Orders/Labs/Meds Labs: Laboratory Tests 01/10/20 01/10/20 Range/Units 15:37 15:37 WBC 6.0 (5.0-10.0) 10^3/uL RBC 4.08 L (4.6-6.2) 10^6/uL Hgb 13.1 L (14.0-18.0) g/dL Hct 38.6 L (40.0-54.0) % MCV 94.6 (80-100) fL MCH 32.1 (27.0-34.0) pg MCHC 33.9 (33.0-35.0) g/dL Plt Count 239 (150-450) 10^3/uL Neut % (Auto) 68.0 (42.2-75.2) % Lymph % (Auto) 19.7 L (20.5-50.1) % [place] % (Auto) 10.6 H (2-8) % Eos % (Auto) 1.2 (1.0-3.0) % Baso % (Auto) 0.5 (0.0-1.0) % Sodium 137 (136-145) mmol/L Potassium 3.9 (3.5-5.1) mmol/L Chloride 97 L (98-107) mmol/L Carbon Dioxide 31 (21-32) mmol/L Anion Gap 12.9 (7-13) mEq/L BUN 12 (7-18) mg/dL Creatinine 0.80 (0.70-1.30) mg/dL Est Cr Clr Drug Dosing 127.01 mL/min Estimated GFR (MDRD) > 60 BUN/Creatinine Ratio 15.0 (No establ ref range) Glucose 287 H (74-99) mg/dL Calcium 8.5 (8.5-10.1) mg/dL Total Bilirubin 0.4 (0.2-1.0) mg/dL AST 28 (15-37) U/L ALT 41 (16-63) U/L Alkaline Phosphatase 69 (46-116) U/L Total Protein 6.2 L (6.4-8.2) g/dL Albumin 3.3 L (3.4-5.0) g/dL Globulin 2.9 Albumin/Globulin Ratio 1.14 Departure - Departure Time of Disposition: 16:42 Disposition: Home, Self-Care 01 Condition: Fair Clinical Impression: Constipation Qualifiers: Constipation type: unspecified constipation type Qualified Code(s): K59.00 - Constipation, unspecified - Discharge Information *PRESCRIPTION DRUG MONITORING PROGRAM REVIEWED*: Not Applicable *COPY OF PRESCRIPTION DRUG MONITORING REPORT IN PATIENT SARAH: Not Applicable Instructions: Constipation, Adult, [id number] Forms: ED Department Discharge Care Plan Goals: The patient was advised of the examination, lab and x-ray results during the visit. The patient was encouraged to take an adult dose of MiraLax daily for the next 3-4 days to relieve constipation. The patient should continue with all medications as prescribed. If the patient has any additional symptoms or concerns, the patient should either return to the emergency department or visit his primary care facility. Sepsis Event Note (ED) - Evaluation Sepsis Screening Result: No Definite Risk - Focused Exam Vital Signs: Vital Signs Temp Pulse Resp BP Pulse Ox 01/10/20 15:01 36.9 C 79 18 128/98 H 95 I have read and agree with the documentation that has been completed regarding this visit. By signing this record, I attest that the documentation was completed in my physical presence and is an accurate record of the encounter.
== END 2020-01-10 16:50 | disposition home or self-care (01) ==
LOC: DL.ED 14:49
DX: K59.00 Constipation, unspecified (principal); E11.9 Type 2 diabetes mellitus without complications; F32.9 Major depressive disorder, single episode, unspecified; Z79.82 Long term (current) use of aspirin; Z79.4 Long term (current) use of insulin; Z79.899 Other long term (current) drug therapy
CPT/HCPCS: 36415; 74019; 80053; 85025; 99284-25

== ENCOUNTER 2020-02-15 08:30 | Emergency (ER) | payer BC ==
[2020-02-15 08:36] VITALS: BP 118/86; PULSE 97
--- NOTE | 2020-02-15 09:14 | EDM.PDOC ---
ED HPI GENERAL MEDICAL PROBLEM - General Chief Complaint: Neuro Symptoms/Deficits Stated Complaint: UNABLE TO CONTROL MOUTH MOVEMENT/DIABETIC Time Seen by Provider: 02/15/20 08:45 Source of Information: Reports: Patient History Limitations: Reports: No Limitations - History of Present Illness INITIAL COMMENTS - FREE TEXT/NARRATIVE: This 49 yo male patient reports to the ED due to difficulties communicating. The patient reports he started to have intermittent episodes when he was having difficulties communicating since Saturday. The patient reports Saturday evening he had an episode when his blood sugar was running high. The patient reports he called the ambulance and they were at his house for about 1 1/2 hours, but never got his blood sugar level below 500. The patient reports he refused transport. The patient reports he has been having episodes when he has not been able to talk. The patient reports he has had 3 episodes today. The patient denies any drug or alcohol use. The patient reports he has been taking his medications as prescribed, but could not remember if he has been taking his Welbutrin on Saturday or Saturday. Onset Date: 02/13/20 Duration: Intermittent Location: Reports: Other Quality: Reports: Other Severity: Moderate Improves with: Reports: None Worsens with: Reports: None Context: Reports: Other Associated Symptoms: Reports: No Other Symptoms - Related Data Allergies Allergy/AdvReac Type Severity Reaction Status Date / Time No Known Allergies Allergy Verified 01/10/20 15:01 Home Meds: Home Meds metFORMIN [Glucophage] 1,000 mg PO BID 05/27/15 [History] Insulin Aspart [Novolog Flexpen] 6 units SQ BIDMEALS 04/30/17 [History] Insulin Detemir [Levemir] 33 units SQ BEDTIME 04/30/17 [History] Fenofibrate Nanocrystallized [Fenofibrate] 145 mg PO DAILY 01/04/20 [History] buPROPion HCL [Bupropion Xl] 300 mg PO DAILY 01/04/20 [History] Furosemide 1 tab PO ASDIRECTED 01/10/20 [History] Past Medical History - Past Health History Medical/Surgical History: Denies Medical/Surgical History HEENT History: Reports: Hard of Hearing, Impaired Vision Other HEENT History: has hearing aide Cardiovascular History: Reports: Heart Murmur, High Cholesterol, Other (See Below) Other Cardiovascular History: CHRONIC VENOUS INSUFFICIENCY Respiratory History: Reports: None Gastrointestinal History: Reports: Colon Polyp, Hemorrhoids Genitourinary History: Reports: None Musculoskeletal History: Reports: Other (See Below) Other Musculoskeletal History: Fx rt. hand Neurological History: Reports: None Psychiatric History: Reports: Depression Other Psychiatric History: States he has been depressed since his divorce 4 year ago. Endocrine/Metabolic History: Reports: Diabetes, Type II Hematologic History: Reports: None Immunologic History: Reports: None Oncologic (Cancer) History: Reports: None Dermatologic History: Reports: None, Other (See Below) Other Dermatologic History: INFECTED CYST RIGHT SCROTUM - Infectious Disease History Infectious Disease History: Reports: Chicken Pox - Past Surgical History HEENT Surgical History: Reports: None Cardiovascular Surgical History: Reports: None Respiratory Surgical History: Reports: None GI Surgical History: Reports: Colonoscopy, Polypectomy Male Surgical History: Reports: None Endocrine Surgical History: Reports: None Neurological Surgical History: Reports: None Musculoskeletal Surgical History: Reports: Other (See Below) Other Musculoskeletal Surgeries/Procedures:: varicose vein stripping. PLATE AND SCREWS IN RIGHT HAND Dermatological Surgical History: Reports: None Social & Family History - Family History Family Medical History: Noncontributory - Tobacco Use Smoking Status *Q: Current Every Day Smoker Years of Tobacco use: 30 Packs/Tins Daily: 1 Used Tobacco, but Quit: No Second Hand Smoke Exposure: No - Caffeine Use Caffeine Use: Reports: None - Recreational Drug Use Recreational Drug Use: No - Living Situation & Occupation Living situation: Reports: with Significant Other Occupation: Employed ED ROS GENERAL - Review of Systems Review Of Systems: Comprehensive ROS is negative, except as noted in HPI. ED EXAM, NEURO - Physical Exam Exam: See Below Exam Limited By: No Limitations General Appearance: Alert, WD/WN, Anxious, Moderate Distress Eye Exam: Bilateral Eye: EOMI, Normal Inspection, PERRL Ears: Normal External Exam, Normal Canal, Hearing Grossly Normal, Normal TMs Nose: Normal Inspection, Normal Mucosa, No Blood Throat/Mouth: Normal Inspection, Normal Lips, Normal Teeth, Normal Gums, Normal Oropharynx, Normal Voice, No Airway Compromise Head Exam: Atraumatic, Normocephalic Neck: Normal Inspection, Supple, Non-Tender, Full Range of Motion Respiratory/Chest: No Respiratory Distress, Lungs Clear, Normal Breath Sounds, No Accessory Muscle Use, Chest Non-Tender Cardiovascular: Normal Peripheral Pulses, Regular Rate, Rhythm, No Edema, No Gallop, No JVD, No Murmur, No Rub GI/Abdominal: Normal Bowel Sounds, Soft, Non-Tender, No Organomegaly, No Distention, No Abnormal Bruit, No Mass (Male) Exam: Deferred Rectal (Males) Exam: Deferred Neurological: Alert, Normal Dorsiflexion, CN II-XII Intact, Normal Plantar Flexion, Normal Gait, Normal Reflexes, No Motor/Sensory Deficits, Oriented x 3 Back Exam: Normal Inspection, Full Range of Motion, NT Extremities: Normal Inspection, Normal Range of Motion, Non-Tender, No Pedal Edema, Normal Capillary Refill Psychiatric: Anxious, Tearful (intermittent) Skin Exam: Warm, Dry, Intact, Normal Color, No Rash Course - Vital Signs Last Recorded V/S: Last Vital Signs Temp 35.9 C L 02/15/20 08:35 Pulse 97 02/15/20 08:35 Resp 16 02/15/20 08:35 BP 118/86 02/15/20 08:35 Pulse Ox 97 02/15/20 08:35 - Orders/Labs/Meds Orders: Active Orders 24 hr Category Date Time Status EKG Documentation Completion [RC] STAT Care 02/15/20 08:55 Ordered DRUG SCREEN URINE BIORAD [URCHEM] Stat Lab 02/15/20 08:55 Ordered UA RFX SIN AND CULT IF INDIC [URIN] Urgent Lab 02/15/20 08:55 Ordered Labs: Laboratory Tests 02/15/20 02/15/20 Range/Units 09:06 09:06 WBC 9.9 (5.0-10.0) 10^3/uL RBC 4.43 L (4.6-6.2) 10^6/uL Hgb 14.0 (14.0-18.0) g/dL Hct 39.9 L (40.0-54.0) % MCV 90.1 D (80-100) fL MCH 31.6 (27.0-34.0) pg MCHC 35.1 H (33.0-35.0) g/dL Plt Count 170 (150-450) 10^3/uL Neut % (Auto) 85.4 H (42.2-75.2) % Lymph % (Auto) 8.8 L (20.5-50.1) % Snyder % (Auto) 5.3 (2-8) % Eos % (Auto) 0.2 L (1.0-3.0) % Baso % (Auto) 0.3 (0.0-1.0) % Sodium 132 L (136-145) mmol/L Potassium 4.3 (3.5-5.1) mmol/L Chloride 96 L (98-107) mmol/L Carbon Dioxide 30 (21-32) mmol/L Anion Gap 10.3 (7-13) mEq/L BUN 14 (7-18) mg/dL Creatinine 0.92 (0.70-1.30) mg/dL Est Cr Clr Drug Dosing 110.07 mL/min Estimated GFR (MDRD) > 60 BUN/Creatinine Ratio 15.2 (No establ ref range) Glucose 464 H* (74-99) mg/dL Calcium 8.4 L (8.5-10.1) mg/dL Total Bilirubin 0.2 (0.2-1.0) mg/dL AST 16 (15-37) U/L ALT 18 (16-63) U/L Alkaline Phosphatase 90 (46-116) U/L Troponin I < 0.017 (0.000-0.056) ng/mL Total Protein 6.4 (6.4-8.2) g/dL Albumin 3.4 (3.4-5.0) g/dL Globulin 3.0 Albumin/Globulin Ratio 1.1 - Re-Assessments/Exams Free Text/Narrative Re-Assessment/Exam: 02/15/20 09:43 The patient was advised of the examination, lab, EKG and CT results. The patient was advised that his current blood sugar level is 464. The patient was offered fluids to reduce his blood sugar, but the patient refused. The patient was advised a second time to allow us to give him IV fluids, but the patient refused. The patient initially could not remember if he has been taking his medications as directed. After asking numerous times, the patient reports that he has not missed any doses of medication. The patient was advised to take his medications as appropriate. Departure - Departure Time of Disposition: 09:47 Disposition: Home, Self-Care 01 Condition: Fair Clinical Impression: Hyperglycemia, Non-adherence to medical treatment - Discharge Information *PRESCRIPTION DRUG MONITORING PROGRAM REVIEWED*: Not Applicable *COPY OF PRESCRIPTION DRUG MONITORING REPORT IN PATIENT SARAH: Not Applicable Instructions: Hyperglycemia, [id number]-Bbfc Forms: ED Department Discharge Care Plan Goals: The patient was advised of the examination, lab, EKG and CT results during the visit. The patient refused IV fluids for treatment of his high blood sugar level. The patient was encouraged to monitor his blood sugar levels and follow the guidelines provided by his primary care facility. The patient was encouraged to take all medications as prescribed. If the patient has any additional symptoms or concerns, the patient should either return to the emergency department or visit his primary care facility. Sepsis Event Note (ED) - Evaluation Sepsis Screening Result: No Definite Risk - Focused Exam Vital Signs: Vital Signs Temp Pulse Resp BP Pulse Ox 02/15/20 08:35 35.9 C L 97 16 118/86 97 - My Orders Last 24 Hours: My Active Orders 02/15/20 08:55 EKG Documentation Completion [RC] STAT DRUG SCREEN URINE BIORAD [URCHEM] Stat UA RFX SIN AND CULT IF INDIC [URIN] Urgent - Assessment/Plan Last 24 Hours: My Active Orders 02/15/20 08:55 EKG Documentation Completion [RC] STAT DRUG SCREEN URINE BIORAD [URCHEM] Stat UA RFX SIN AND CULT IF INDIC [URIN] Urgent
--- NOTE | 2020-02-15 09:24 | CT ---
PROCEDURE INFORMATION: Exam: CT Head Without Contrast Exam date and time: 02/15/2020 9:04 AM Age: 49 years old Clinical indication: Other: Difficulty communicating; Additional info: Episodic episodes of difficulties communitating TECHNIQUE: Imaging protocol: Computed tomography of the head without contrast. Radiation optimization: All CT scans at this facility use at least one of these dose optimization techniques: automated exposure control; mA and/or kV adjustment per patient size (includes targeted exams where dose is matched to clinical indication); or iterative reconstruction. COMPARISON: No relevant prior studies available. FINDINGS: Brain: No mass, intracranial hemorrhage, or brain edema. No transcortical defect. No white matter hypodensity or other abnormality. Ventricles: Normal. Bones/joints: Normal. Sinuses: The partly pneumatized sinuses are clear. Mastoid air cells: Normal. Vasculature: Minimal carotid atherosclerosis. Soft tissues: Unremarkable. IMPRESSION: Minimal atherosclerosis, otherwise, normal.
[2020-02-15 09:35] LABS: ANION GAP 10.3 mEq/L (7-13); CHLORIDE,CL 96 mmol/L (98-107); SODIUM,NA 132 mmol/L (136-145)
== END 2020-02-15 09:55 | disposition home or self-care (01) ==
LOC: DL.ED 08:30
DX: E11.65 Type 2 diabetes mellitus with hyperglycemia (principal); F32.9 Major depressive disorder, single episode, unspecified; F17.210 Nicotine dependence, cigarettes, uncomplicated; Z79.4 Long term (current) use of insulin; Z79.899 Other long term (current) drug therapy
CPT/HCPCS: 36415; 70450; 80053; 84484; 85025; 93005; 99283; 99285-25

== ENCOUNTER 2020-04-25 18:17 | Emergency (ER) | payer BC ==
[2020-04-25] MEDS ORDERED: Magnesium Citrate Solution 296 ML Bottle PO ONE (18:18)
[2020-04-25 18:32] VITALS: BP 135/85; PULSE 95
[2020-04-25] MEDS ORDERED: Sodium Chloride 0.9% 10 ML Syringe FLUSH PRN (18:34)
--- NOTE | 2020-04-25 18:34 | EDM.PDOC ---
<Von Dan - Last Filed: 04/25/20 18:52> ED HPI GENERAL MEDICAL PROBLEM - General Chief Complaint: Abdominal Pain Stated Complaint: STOMACH PAINS Time Seen by Provider: 04/25/20 18:33 Source of Information: Reports: Patient, Old Records, RN, RN Notes Reviewed History Limitations: Reports: No Limitations - History of Present Illness INITIAL COMMENTS - FREE TEXT/NARRATIVE: Pt presents to ER by POV with c/o onset of generalized abdominal pain today at 1600HRS while at work. Pt felt the sudden urge to have a BM and sat for an extended time on the commode but could not pass any stool. Since the onset the pain has been constant. He denies nausea, vomiting, diarrhea, or dysuria. He admits to feeling "sluggish" and fatigued this afternoon. He has Hx of DM Type 2 and HTN. He last ate at noon, a sandwich and grapes that he brought from home. No known sick contacts. Pt admits that he does not take his medications regularly, and does not monitor his blood sugars. Onset: Today, Sudden Onset Date: 04/25/20 Onset Time: 16:00 Duration: Constant Location: Reports: Abdomen Quality: Reports: Ache Severity: Severe Improves with: Reports: None Worsens with: Reports: None Associated Symptoms: Reports: No Other Symptoms Epigastric Pain Score (Numeric/FACES): 5 - Related Data Allergies Allergy/AdvReac Type Severity Reaction Status Date / Time No Known Allergies Allergy Verified 04/25/20 18:24 Home Meds: Home Meds metFORMIN [Glucophage] 1,000 mg PO BID 05/27/15 [History] Insulin Aspart [Novolog Flexpen] 6 units SQ BIDMEALS 04/30/17 [History] Insulin Detemir [Levemir] 38 units SQ BEDTIME 04/30/17 [History] Fenofibrate Nanocrystallized [Fenofibrate] 145 mg PO DAILY 01/04/20 [History] buPROPion HCL [Bupropion Xl] 300 mg PO DAILY 01/04/20 [History] Furosemide 1 tab PO ASDIRECTED 01/10/20 [History] Past Medical History - Past Health History Medical/Surgical History: Denies Medical/Surgical History HEENT History: Reports: Hard of Hearing, Impaired Vision Other HEENT History: has hearing aide Cardiovascular History: Reports: Heart Murmur, High Cholesterol, Other (See Below) Other Cardiovascular History: CHRONIC VENOUS INSUFFICIENCY Respiratory History: Reports: None Gastrointestinal History: Reports: Colon Polyp, Hemorrhoids Genitourinary History: Reports: None Musculoskeletal History: Reports: Other (See Below) Other Musculoskeletal History: Fx rt. hand Neurological History: Reports: None Psychiatric History: Reports: Depression Other Psychiatric History: States he has been depressed since his divorce 4 year ago. Endocrine/Metabolic History: Reports: Diabetes, Type II Hematologic History: Reports: None Immunologic History: Reports: None Oncologic (Cancer) History: Reports: None Dermatologic History: Reports: None, Other (See Below) Other Dermatologic History: INFECTED CYST RIGHT SCROTUM - Infectious Disease History Infectious Disease History: Reports: Chicken Pox - Past Surgical History HEENT Surgical History: Reports: None Cardiovascular Surgical History: Reports: None Respiratory Surgical History: Reports: None GI Surgical History: Reports: Colonoscopy, Polypectomy Male Surgical History: Reports: None Endocrine Surgical History: Reports: None Neurological Surgical History: Reports: None Musculoskeletal Surgical History: Reports: Other (See Below) Other Musculoskeletal Surgeries/Procedures:: varicose vein stripping. PLATE AND SCREWS IN RIGHT HAND Dermatological Surgical History: Reports: None Social & Family History - Family History Family Medical History: Noncontributory - Caffeine Use Caffeine Use: Reports: None - Living Situation & Occupation Living situation: Reports: with Significant Other Occupation: Employed ED ROS GENERAL - Review of Systems Review Of Systems: Comprehensive ROS is negative, except as noted in HPI. ED EXAM, GI/ABD - Physical Exam Exam: See Below Exam Limited By: No Limitations General Appearance: Alert, No Apparent Distress, Thin, Other (Uncomfortable but non-toxic appearing). No: Active Emesis Eyes: Bilateral: Normal Appearance (No scleral icterus) Nose: Normal Inspection Throat/Mouth: Normal Inspection, Normal Lips, Normal Voice, No Airway Compromise Head: Atraumatic, Normocephalic Neck: Normal Inspection Respiratory/Chest: No Respiratory Distress, Lungs Clear, Normal Breath Sounds, N o Accessory Muscle Use, Chest Non-Tender Cardiovascular: Regular Rate, Rhythm, No Edema GI/Abdominal Exam: Normal Bowel Sounds, Soft, No Distention, Tender (Mild generalized tenderness, with palpation not significantly aggravating the pt's pain.). No: Guarding, Rigid, Rebound (Male) Exam: Deferred Rectal (Males) Exam: Deferred Back Exam: Normal Inspection Extremities: Normal Range of Motion, Non-Tender Neurological: Alert, Oriented, No Motor/Sensory Deficits Psychiatric: Flat Affect Skin Exam: Warm, Dry, Intact, Normal Color, No Rash Course - Re-Assessments/Exams Free Text/Narrative Re-Assessment/Exam: 04/25/20 18:43 Care of pt transferred to Joey ANDERS at 1900HR shift change. Departure - Departure Disposition: Home, Self-Care 01 Clinical Impression: Constipation Qualifiers: Constipation type: unspecified constipation type Qualified Code(s): K59.00 - Constipation, unspecified Hyperglycemia due to type 2 diabetes mellitus Qualifiers: Diabetes mellitus snf insulin use: with termite treater helper use Qualified Code(s): E11.65 - Type 2 diabetes mellitus with hyperglycemia; Z79.4 - terminal superintendent (current) use of insulin - Discharge Information Instructions: Type 2 Diabetes Mellitus, Self Care, Adult, [id number], Constipation, Adult, [id number] Forms: ED Department Discharge Care Plan Goals: The patient was advised of the examination, lab and x-ray results during the visit. The patient was offered enemas for constipation, but the patient would prefer magnesium citrate and MiraLax (home treatments). The patient was encouraged to take his insulin as prescribed. If the patient has any additional symptoms or concerns, the patient should either return to the emergency department or visit his primary care facility. Sepsis Event Note (ED) - Evaluation Sepsis Screening Result: No Definite Risk <Joey Roy - Last Filed: 04/25/20 20:51> Course - Vital Signs Last Recorded V/S: Last Vital Signs Temp 37.1 C 04/25/20 18:31 Pulse 95 04/25/20 18:31 Resp 16 04/25/20 18:31 BP 135/85 04/25/20 18:31 Pulse Ox 99 04/25/20 18:31 - Orders/Labs/Meds Orders: Active Orders 24 hr Category Date Time Status Glucose [Blood Glucose Check, Bedside] [RC] ONETIME Care 04/25/20 18:30 Active Peripheral IV Care [RC] . DIRECTED Care 04/25/20 18:35 Active Sodium Chloride 0.9% [Saline Flush] Med 04/25/20 18:34 Active 10 ml FLUSH ASDIRECTED PRN Peripheral IV Insertion Adult [OM.PC] Stat Oth 04/25/20 18:34 Ordered Medication Orders Sodium Chloride (Saline Flush) 10 ml FLUSH ASDIRECTED PRN PRN Reason: Keep Vein Open Last Admin: 04/25/20 18:54 Dose: 10 ml Documented by: IRINA Labs: Laboratory Tests 04/25/20 04/25/20 04/25/20 Range/Units 18:37 18:37 18:37 WBC 10.9 H (5.0-10.0) 10^3/uL RBC 4.48 L (4.6-6.2) 10^6/uL Hgb 14.3 (14.0-18.0) g/dL Hct 39.8 L (40.0-54.0) % MCV 88.8 (80-100) fL MCH 31.9 (27.0-34.0) pg MCHC 35.9 H (33.0-35.0) g/dL Plt Count 211 (150-450) 10^3/uL Neut % (Auto) 89.4 H (42.2-75.2) % Lymph % (Auto) 6.8 L (20.5-50.1) % Ada % (Auto) 3.1 (2-8) % Eos % (Auto) 0.4 L (1.0-3.0) % Baso % (Auto) 0.3 (0.0-1.0) % ABG pH (7.35-7.45) ABG pCO2 (35-45) mmHg ABG pO2 (70-100) mmHg ABG HCO3 (22-26) mmol/L ABG O2 Saturation (95-100) % ABG Base Excess ((-2)-(+3)) mmol/L Jovi Test O2 Delivery Device Sodium 132 L (136-145) mmol/L Potassium 3.9 (3.5-5.1) mmol/L Chloride 93 L (98-107) mmol/L Carbon Dioxide 25 (21-32) mmol/L Anion Gap 17.9 H (7-13) mEq/L BUN 15 (7-18) mg/dL Creatinine 0.96 (0.70-1.30) mg/dL Est Cr Clr Drug Dosing 102.21 mL/min Estimated GFR (MDRD) > 60 BUN/Creatinine Ratio 15.6 (No establ ref range) Glucose 475 H* (74-99) mg/dL Calcium 8.5 (8.5-10.1) mg/dL Magnesium 2.0 (1.8-2.4) mg/dL Total Bilirubin 0.5 (0.2-1.0) mg/dL AST 10 L (15-37) U/L ALT 22 (16-63) U/L Alkaline Phosphatase 117 H (46-116) U/L Total Protein 6.8 (6.4-8.2) g/dL Albumin 3.8 (3.4-5.0) g/dL Globulin 3.0 Albumin/Globulin Ratio 1.3 Amylase 18 L (25-115) U/L Lipase 55 L (73-393) U/L Urine Color (YELLOW) Urine Appearance (CLEAR) Urine pH (5.0-9.0) Ur Specific [place] (1.005-1.030) Urine Protein (NEGATIVE) Urine Glucose (UA) (NEGATIVE) Urine Ketones (NEGATIVE) Urine Occult Blood (NEGATIVE) Urine Nitrite (NEGATIVE) Urine Bilirubin (NEGATIVE) Urine Urobilinogen (0.2-1.0) mg/dL Ur Leukocyte Esterase (NEGATIVE) Ketones Positive SARS CoV-2 RNA Rapid DAVION (NEGATIVE) 04/25/20 04/25/20 04/25/20 Range/Units 18:46 20:00 20:05 WBC (5.0-10.0) 10^3/uL RBC (4.6-6.2) 10^6/uL Hgb (14.0-18.0) g/dL Hct (40.0-54.0) % MCV (80-100) fL MCH (27.0-34.0) pg MCHC (33.0-35.0) g/dL Plt Count (150-450) 10^3/uL Neut % (Auto) (42.2-75.2) % Lymph % (Auto) (20.5-50.1) % Ada % (Auto) (2-8) % Eos % (Auto) (1.0-3.0) % Baso % (Auto) (0.0-1.0) % ABG pH 7.34 L (7.35-7.45) ABG pCO2 41 (35-45) mmHg ABG pO2 79 (70-100) mmHg ABG HCO3 21.2 L (22-26) mmol/L ABG O2 Saturation 95 (95-100) % ABG Base Excess -4 L ((-2)-(+3)) mmol/L Jovi Test Performed O2 Delivery Device Room air Sodium (136-145) mmol/L Potassium (3.5-5.1) mmol/L Chloride (98-107) mmol/L Carbon Dioxide (21-32) mmol/L Anion Gap (7-13) mEq/L BUN (7-18) mg/dL Creatinine (0.70-1.30) mg/dL Est Cr Clr Drug Dosing mL/min Estimated GFR (MDRD) BUN/Creatinine Ratio (No establ ref range) Glucose (74-99) mg/dL Calcium (8.5-10.1) mg/dL Magnesium (1.8-2.4) mg/dL Total Bilirubin (0.2-1.0) mg/dL AST (15-37) U/L ALT (16-63) U/L Alkaline Phosphatase (46-116) U/L Total Protein (6.4-8.2) g/dL Albumin (3.4-5.0) g/dL Globulin Albumin/Globulin Ratio Amylase (25-115) U/L Lipase (73-393) U/L Urine Color Yellow (YELLOW) Urine Appearance Clear (CLEAR) Urine pH 5.0 (5.0-9.0) Ur Specific [place] 1.020 (1.005-1.030) Urine Protein Negative (NEGATIVE) Urine Glucose (UA) 500 H (NEGATIVE) Urine Ketones 80 H (NEGATIVE) Urine Occult Blood Negative (NEGATIVE) Urine Nitrite Negative (NEGATIVE) Urine Bilirubin Negative (NEGATIVE) Urine Urobilinogen 0.2 (0.2-1.0) mg/dL Ur Leukocyte Esterase Negative (NEGATIVE) Ketones SARS CoV-2 RNA Rapid DAVION Negative (NEGATIVE) Meds: Medications Generic Name Dose Route Start Last Admin Trade Name Freq PRN Reason Stop Dose Admin Sodium Chloride 10 ml 04/25/20 18:34 04/25/20 18:54 Saline Flush FLUSH 10 ml ASDIRECTED PRN Administration Keep Vein Open Discontinued Medications Generic Name Dose Route Start Last Admin Trade Name Freq PRN Reason Stop Dose Admin Famotidine 20 mg 04/25/20 18:36 04/25/20 18:54 Pepcid IVPUSH 04/25/20 18:37 20 mg ONETIME ONE Administration Sodium Chloride 1,000 mls @ 999 mls/hr 04/25/20 18:35 04/25/20 18:54 Normal Saline IV 04/25/20 19:35 999 mls/hr .BOLUS ONE Administration - Re-Assessments/Exams Free Text/Narrative Re-Assessment/Exam: 04/25/20 19:55 The patient was advised of the examination and initial lab results. The patient reports he does not know when he last took his insulin or checked his blood sugar. 04/25/20 20:46 The patient was advised of the remaining x-ray and lab results. The patient refused enemas, but would like to take Mag Citrate when he gets home (lives by [address]). Departure - Departure Time of Disposition: 20:48 Condition: Fair - Discharge Information *PRESCRIPTION DRUG MONITORING PROGRAM REVIEWED*: Not Applicable *COPY OF PRESCRIPTION DRUG MONITORING REPORT IN PATIENT SARAH: Not Applicable Sepsis Event Note (ED) - Focused Exam Vital Signs: Vital Signs Temp Pulse Resp BP Pulse Ox 04/25/20 18:31 37.1 C 95 16 135/85 99
[2020-04-25] MEDS ORDERED: Sodium Chloride 0.9% 1,000 ML IV ONE (18:35)
[2020-04-25] MEDS ORDERED: Famotidine 20 MG/2 ML SDV IVPUSH ONE (18:36)
[2020-04-25 19:04] LABS: ANION GAP 17.9 mEq/L (7-13); CHLORIDE,CL 93 mmol/L (98-107); SODIUM,NA 132 mmol/L (136-145)
--- NOTE | 2020-04-25 19:35 | CR ---
PROCEDURE INFORMATION: Exam: XR Abdomen, 2 Views Exam date and time: 04/25/2020 7:05 PM Age: 49 years old Clinical indication: Abdominal pain; Generalized; Patient HX: HX of constipation; Additional info: Generalized abdominal pain TECHNIQUE: Imaging protocol: XR of the abdomen. Views: 2 Views. COMPARISON: CR Abdomen 2V AP Flat Upright 01/10/2020 3:28 PM FINDINGS: Gastrointestinal tract: Moderate amount of stool is present within the colon. Findings are compatible with constipation. There is no obstruction. Intraperitoneal space: Normal. No free air. Bones/joints: Unremarkable for age. IMPRESSION: 1. Constipation without obstruction.
[2020-04-25 20:08] LABS: ALLEN TEST PERFORMED; BASE EXCESS ARTERIAL -4 mmol/L ((-2)-(+3)); BICARBONATE,ARTERIAL 21.2 mmol/L (22-26); O2 DELIVERY DEVICE ROOM AIR; O2 SATURATION ARTERIAL 95 % (95-100); PCO2 ARTERIAL 41 mmHg (35-45); PO2 ARTERIAL 79 mmHg (70-100)
[2020-04-25] MEDS ORDERED: Magnesium Citrate Solution 296 ML Bottle ONE (20:51)
== END 2020-04-25 21:01 | disposition home or self-care (01) ==
LOC: DL.ED 18:17
DX: K59.00 Constipation, unspecified (principal); E11.65 Type 2 diabetes mellitus with hyperglycemia; E78.00 Pure hypercholesterolemia, unspecified; F32.9 Major depressive disorder, single episode, unspecified; Z79.4 Long term (current) use of insulin; Z79.899 Other long term (current) drug therapy
CPT/HCPCS: 36415; 36600; 74019; 80053; 81003; 82009; 82150; 82803; 82962; 83690; 83735; 85025; 87635; 96361; 96374; 99283; J3490; J7030; A9270-GY; U0002

== ENCOUNTER 2020-05-06 13:03 | Emergency (ER) | payer BC ==
[2020-05-06 13:21] VITALS: BP 111/71; PULSE 98
--- NOTE | 2020-05-06 13:37 | EDM.PDOC ---
ED HPI GENERAL MEDICAL PROBLEM - General Stated Complaint: HURT RIBS Time Seen by Provider: 05/06/20 13:15 Source of Information: Reports: Patient History Limitations: Reports: No Limitations - History of Present Illness INITIAL COMMENTS - FREE TEXT/NARRATIVE: This 50 yo male patient reports to the ED with right lateral rib pain. The patient reports he fell between two runners on a deck just prior to his arrival in the ED. The patient reports he continues to have pain to his right ribs. The patient has increased pain with deep breathing. Onset: Today Duration: Minutes: Location: Reports: Chest (right lateral chest wall pain) Quality: Reports: Ache Severity: Moderate Improves with: Reports: Rest Worsens with: Reports: Breathing Context: Reports: Activity Associated Symptoms: Reports: No Other Symptoms Right Lower Anterior Trunk Pain Score (Numeric/FACES): 6 - Related Data Allergies Allergy/AdvReac Type Severity Reaction Status Date / Time No Known Allergies Allergy Verified 05/06/20 13:20 Home Meds: Home Meds metFORMIN [Glucophage] 1,000 mg PO BID 05/27/15 [History] Insulin Aspart [Novolog Flexpen] 6 units SQ BIDMEALS 04/30/17 [History] Insulin Detemir [Levemir] 38 units SQ BEDTIME 04/30/17 [History] Fenofibrate Nanocrystallized [Fenofibrate] 145 mg PO DAILY 01/04/20 [History] Past Medical History - Past Health History Medical/Surgical History: Denies Medical/Surgical History HEENT History: Reports: Hard of Hearing, Impaired Vision Other HEENT History: has hearing aide Cardiovascular History: Reports: Heart Murmur, High Cholesterol, Other (See Below) Other Cardiovascular History: CHRONIC VENOUS INSUFFICIENCY Respiratory History: Reports: None Gastrointestinal History: Reports: Colon Polyp, Hemorrhoids Genitourinary History: Reports: None Musculoskeletal History: Reports: Other (See Below) Other Musculoskeletal History: Fx rt. hand Neurological History: Reports: None Psychiatric History: Reports: Depression Other Psychiatric History: States he has been depressed since his divorce 4 year ago. Endocrine/Metabolic History: Reports: Diabetes, Type II Hematologic History: Reports: None Immunologic History: Reports: None Oncologic (Cancer) History: Reports: None Dermatologic History: Reports: None, Other (See Below) Other Dermatologic History: INFECTED CYST RIGHT SCROTUM - Infectious Disease History Infectious Disease History: Reports: Chicken Pox - Past Surgical History HEENT Surgical History: Reports: None Cardiovascular Surgical History: Reports: None Respiratory Surgical History: Reports: None GI Surgical History: Reports: Colonoscopy, Polypectomy Male Surgical History: Reports: None Endocrine Surgical History: Reports: None Neurological Surgical History: Reports: None Musculoskeletal Surgical History: Reports: Other (See Below) Other Musculoskeletal Surgeries/Procedures:: varicose vein stripping. PLATE AND SCREWS IN RIGHT HAND Dermatological Surgical History: Reports: None Social & Family History - Family History Family Medical History: Noncontributory - Caffeine Use Caffeine Use: Reports: Coffee - Living Situation & Occupation Living situation: Reports: with Significant Other Occupation: Employed ED ROS GENERAL - Review of Systems Review Of Systems: Comprehensive ROS is negative, except as noted in HPI. ED EXAM, GENERAL - Physical Exam Exam: See Below Exam Limited By: No Limitations General Appearance: Alert, WD/WN, Mild Distress, Thin Eye Exam: Bilateral Eye: EOMI, Normal Inspection, PERRL Ears: Normal External Exam, Normal Canal, Hearing Grossly Normal, Normal TMs Nose: Normal Inspection, Normal Mucosa, No Blood Throat/Mouth: Normal Inspection, Normal Lips, Normal Teeth, Normal Gums, Normal Oropharynx, Normal Voice, No Airway Compromise Head: Atraumatic, Normocephalic Neck: Normal Inspection, Supple, Non-Tender, Full Range of Motion Respiratory/Chest: No Respiratory Distress, Lungs Clear, Normal Breath Sounds, Other (Tenderness to right lateral chest) Cardiovascular: Normal Peripheral Pulses, Regular Rate, Rhythm, No Edema, No Gallop, No JVD, No Murmur, No Rub (Male) Exam: Deferred Rectal (Males) Exam: Deferred Back Exam: Normal Inspection, Full Range of Motion, NT Extremities: Normal Inspection, Normal Range of Motion, Non-Tender, Normal Capillary Refill, No Pedal Edema Neurological: Alert, Oriented, CN II-XII Intact, Normal Cognition, Normal Gait, Normal Reflexes, No Motor/Sensory Deficits Psychiatric: Normal Affect, Normal Mood Skin Exam: Warm, Dry, Intact, Normal Color, No Rash Lymphatic: No Adenopathy Course - Vital Signs Last Recorded V/S: Last Vital Signs Temp 36.4 C 05/06/20 13:17 Pulse 98 05/06/20 13:17 Resp 16 05/06/20 13:17 BP 111/71 05/06/20 13:17 Pulse Ox 96 05/06/20 13:17 - Orders/Labs/Meds Meds: Medications Discontinued Medications Generic Name Dose Route Start Last Admin Trade Name Marie PRN Reason Stop Dose Admin Ketorolac Tromethamine 30 mg 05/06/20 13:56 Toradol IM 05/06/20 13:57 ONETIME ONE Departure - Departure Time of Disposition: 13:57 Disposition: Home, Self-Care 01 Condition: Fair Clinical Impression: Contusion of rib on right side Qualifiers: Encounter type: initial encounter Qualified Code(s): S20.211A - Contusion of right front wall of thorax, initial encounter Instructions: Contusion, [id number] Forms: ED Department Discharge Care Plan Goals: The patient was advised of the examination and x-ray results during the visit. The patient was given an injection of Toradol (30 mg) while in the ED. The patient was discharged with a script for Toradol (10 mg) #20 to take 1 by mouth every 6 hours. If the patient has any additional symptoms or concerns, the patient should either return to the emergency department or visit his primary care facility. Sepsis Event Note (ED) - Focused Exam Vital Signs: Vital Signs Temp Pulse Resp BP Pulse Ox 05/06/20 13:17 36.4 C 98 16 111/71 96
--- NOTE | 2020-05-06 13:49 | CR ---
EXAMINATION: Ribs 2V w Chest Rt SEX: Male AGE: 50 years CLINICAL HISTORY: 50-year-old male with lateral right "rib" pain secondary to fall Interpretation: PA chest and oblique right rib detail films (x3) demonstrate irregularity and sclerosis anterolateral right eighth rib suggesting callus and old fracture. Evidence of multilevel mid thoracic and T9-10 disc disease (hypertrophic marginal spondylosis). No sign of other, acute right rib fracture, underlying lung contusion, atelectasis, pleural effusion or pneumothorax. Normal cardiac silhouette and mediastinal width. Left-sided aortic arch. Tracheobronchial airway unremarkable. No focal lobar infiltrate, atelectasis, pneumothorax or pneumomediastinum. CONCLUSION: No acute right rib fracture associated abnormality. Multilevel thoracic disc disease/arthritis.
[2020-05-06] MEDS ORDERED: Ketorolac 30 MG/ML SDV IM ONE (13:56)
== END 2020-05-06 14:05 | disposition home or self-care (01) ==
LOC: DL.ED 13:03
DX: S20.211A Contusion of right front wall of thorax, initial encounter (principal); E78.00 Pure hypercholesterolemia, unspecified; F32.9 Major depressive disorder, single episode, unspecified; E11.9 Type 2 diabetes mellitus without complications; Z79.4 Long term (current) use of insulin; Z79.899 Other long term (current) drug therapy; W18.30XA Fall on same level, unspecified, initial encounter
CPT/HCPCS: 71101; 96372; 99283; J1885

== ENCOUNTER 2020-06-13 15:59 | Emergency (ER) | payer BC ==
[2020-06-13 16:13] VITALS: BP 139/92; PULSE 99
--- NOTE | 2020-06-13 16:35 | CR ---
EXAMINATION: Chest 1V Frontal SEX: Male AGE: 50 years CLINICAL HISTORY: 50-year-old male with CHEST PAIN. Comparison exam 06 May 2020. INTERPRETATION: Negative. 1. Normal cardiac silhouette (size and configuration). External it investment/portfolio manager leads. 2. No pulmonary vascular congestion, cephalization of vascular flow, alveolar edema or pleural effusion. 3. No new lung mass, hilar lymphadenopathy or focal lobar pneumonia (infiltrate/atelectasis). 4. No peripheral "groundglass" lung densities. 5. No pneumothorax or pneumomediastinum. AP bony thorax unremarkable.
--- NOTE | 2020-06-13 16:44 | EDM.PDOC ---
ED HPI GENERAL MEDICAL PROBLEM - General Stated Complaint: CHEST PAIN TESTED NEG FOR COVID Time Seen by Provider: 06/13/20 16:39 Source of Information: Reports: Patient History Limitations: Reports: No Limitations - History of Present Illness INITIAL COMMENTS - FREE TEXT/NARRATIVE: This 50 yo male patient reports to the ED with a 2 day history of chest tightness. The patient reports his chest tightness has been constant throughout the day, but does get worse at different times of the day. The patient reports he was tested for COVID last and received his negative results today. The patient reports he has not take anything to make his symptoms better or worse. The patient reports he did have an appointment today, but he cancelled the appointment to come to the ED. Onset Date: 06/12/20 Duration: Constant, Intermittent (episodes of increased discomfort) Location: Reports: Chest Quality: Reports: Dull, Pressure Severity: Moderate Improves with: Reports: None Worsens with: Reports: None Context: Reports: Other Associated Symptoms: Reports: No Other Symptoms Left Chest Pain Score (Numeric/FACES): 0 - Related Data Allergies Allergy/AdvReac Type Severity Reaction Status Date / Time No Known Allergies Allergy Verified 06/13/20 16:09 Home Meds: Home Meds metFORMIN [Glucophage] 1,000 mg PO BID 05/27/15 [History] Insulin Aspart [Novolog Flexpen] 6 units SQ BIDMEALS 04/30/17 [History] Insulin Detemir [Levemir] 38 units SQ BEDTIME 04/30/17 [History] Fenofibrate Nanocrystallized [Fenofibrate] 145 mg PO DAILY 01/04/20 [History] Past Medical History - Past Health History Medical/Surgical History: Denies Medical/Surgical History HEENT History: Reports: Hard of Hearing, Impaired Vision Other HEENT History: has hearing aide Cardiovascular History: Reports: Heart Murmur, High Cholesterol, Other (See Below) Other Cardiovascular History: CHRONIC VENOUS INSUFFICIENCY Respiratory History: Reports: None Gastrointestinal History: Reports: Colon Polyp, Hemorrhoids Genitourinary History: Reports: None Musculoskeletal History: Reports: Other (See Below) Other Musculoskeletal History: Fx rt. hand Neurological History: Reports: None Psychiatric History: Reports: Depression Other Psychiatric History: States he has been depressed since his divorce 4 year ago. Endocrine/Metabolic History: Reports: Diabetes, Type II Hematologic History: Reports: None Immunologic History: Reports: None Oncologic (Cancer) History: Reports: None Dermatologic History: Reports: Other (See Below) Other Dermatologic History: INFECTED CYST RIGHT SCROTUM - Infectious Disease History Infectious Disease History: Reports: Chicken Pox - Past Surgical History HEENT Surgical History: Reports: None Cardiovascular Surgical History: Reports: None Respiratory Surgical History: Reports: None GI Surgical History: Reports: Colonoscopy, Polypectomy Male Surgical History: Reports: None Endocrine Surgical History: Reports: None Neurological Surgical History: Reports: None Musculoskeletal Surgical History: Reports: Other (See Below) Other Musculoskeletal Surgeries/Procedures:: varicose vein stripping. PLATE AND SCREWS IN RIGHT HAND Dermatological Surgical History: Reports: None Social & Family History - Family History Family Medical History: No Pertinent Family History - Tobacco Use Tobacco Use Status *Q: Heavy Tobacco User Years of Tobacco use: 35 Packs/Tins Daily: 2 - Caffeine Use Caffeine Use: Reports: Coffee - Recreational Drug Use Recreational Drug Use: No - Living Situation & Occupation Living situation: Reports: with Significant Other Occupation: Employed ED ROS GENERAL - Review of Systems Review Of Systems: Comprehensive ROS is negative, except as noted in HPI. ED EXAM, GENERAL - Physical Exam Exam: See Below Exam Limited By: No Limitations General Appearance: Alert, WD/WN, Moderate Distress Eye Exam: Bilateral Eye: EOMI, Normal Inspection, PERRL Ears: Normal External Exam, Normal Canal, Hearing Grossly Normal, Normal TMs Nose: Normal Inspection, Normal Mucosa, No Blood Throat/Mouth: Normal Inspection, Normal Lips, Normal Teeth, Normal Gums, Normal Oropharynx, Normal Voice, No Airway Compromise Head: Atraumatic, Normocephalic Neck: Normal Inspection, Supple, Non-Tender, Full Range of Motion Respiratory/Chest: Decreased Breath Sounds, Crackles (throughout) Cardiovascular: Normal Peripheral Pulses, Regular Rate, Rhythm, No Edema, No Gallop, No JVD, No Murmur, No Rub GI/Abdominal: Normal Bowel Sounds, Soft, Non-Tender, No Organomegaly, No Distention, No Abnormal Bruit, No Mass (Male) Exam: Deferred Rectal (Males) Exam: Deferred Back Exam: Normal Inspection, Full Range of Motion, NT Extremities: Normal Inspection, Normal Range of Motion, Non-Tender, Normal Capillary Refill, No Pedal Edema Neurological: Alert, Oriented, CN II-XII Intact, Normal Cognition, Normal Gait, Normal Reflexes, No Motor/Sensory Deficits Psychiatric: Normal Affect, Normal Mood Skin Exam: Warm, Dry, Intact, Normal Color, No Rash Lymphatic: No Adenopathy Course - Vital Signs Last Recorded V/S: Last Vital Signs Temp 36.5 C 06/13/20 16:10 Pulse 99 06/13/20 16:10 Resp 16 06/13/20 16:10 BP 139/92 H 06/13/20 16:10 Pulse Ox 100 06/13/20 16:10 - Orders/Labs/Meds Orders: Active Orders 24 hr Category Date Time Status EKG Documentation Completion [RC] STAT Care 06/13/20 16:05 Active CULTURE BLOOD [BC] Stat Lab 06/13/20 16:15 Received Labs: Laboratory Tests 06/13/20 06/13/20 06/13/20 Range/Units 16:15 16:15 16:15 WBC 8.2 (5.0-10.0) 10^3/uL RBC 4.66 (4.6-6.2) 10^6/uL Hgb 15.1 (14.0-18.0) g/dL Hct 41.8 (40.0-54.0) % MCV 89.7 (80-100) fL MCH 32.4 (27.0-34.0) pg MCHC 36.1 H (33.0-35.0) g/dL Plt Count 239 (150-450) 10^3/uL Neut % (Auto) 80.5 H (42.2-75.2) % Lymph % (Auto) 10.9 L (20.5-50.1) % Bell % (Auto) 8.0 (2-8) % Eos % (Auto) 0.1 L (1.0-3.0) % Baso % (Auto) 0.5 (0.0-1.0) % Sodium 125 L (136-145) mmol/L Potassium 4.3 (3.5-5.1) mmol/L Chloride 89 L (98-107) mmol/L Carbon Dioxide 15 L (21-32) mmol/L Anion Gap 25.3 H (7-13) mEq/L BUN 21 H (7-18) mg/dL Creatinine 1.32 H (0.70-1.30) mg/dL Est Cr Clr Drug Dosing 69.30 mL/min Estimated GFR (MDRD) 57 BUN/Creatinine Ratio 15.9 (No establ ref range) Glucose 657 H* (74-99) mg/dL Lactic Acid 0.3 L (0.4-2.0) mmol/L Calcium 8.8 (8.5-10.1) mg/dL Total Bilirubin 0.6 (0.2-1.0) mg/dL AST 8 L (15-37) U/L ALT 19 (16-63) U/L Alkaline Phosphatase 110 (46-116) U/L Troponin I < 0.017 (0.000-0.056) ng/mL Total Protein 7.2 (6.4-8.2) g/dL Albumin 3.7 (3.4-5.0) g/dL Globulin 3.5 Albumin/Globulin Ratio 1.1 Ketones 11/23/20 Range/Units 16:15 WBC (5.0-10.0) 10^3/uL RBC (4.6-6.2) 10^6/uL Hgb (14.0-18.0) g/dL Hct (40.0-54.0) % MCV (80-100) fL MCH (27.0-34.0) pg MCHC (33.0-35.0) g/dL Plt Count (150-450) 10^3/uL Neut % (Auto) (42.2-75.2) % Lymph % (Auto) (20.5-50.1) % Bell % (Auto) (2-8) % Eos % (Auto) (1.0-3.0) % Baso % (Auto) (0.0-1.0) % Sodium (136-145) mmol/L Potassium (3.5-5.1) mmol/L Chloride (98-107) mmol/L Carbon Dioxide (21-32) mmol/L Anion Gap (7-13) mEq/L BUN (7-18) mg/dL Creatinine (0.70-1.30) mg/dL Est Cr Clr Drug Dosing mL/min Estimated GFR (MDRD) BUN/Creatinine Ratio (No establ ref range) Glucose (74-99) mg/dL Lactic Acid (0.4-2.0) mmol/L Calcium (8.5-10.1) mg/dL Total Bilirubin (0.2-1.0) mg/dL AST (15-37) U/L ALT (16-63) U/L Alkaline Phosphatase (46-116) U/L Troponin I (0.000-0.056) ng/mL Total Protein (6.4-8.2) g/dL Albumin (3.4-5.0) g/dL Globulin Albumin/Globulin Ratio Ketones Positive Departure - Departure Time of Disposition: 17:49 Disposition: Home, Self-Care 01 Condition: Fair Clinical Impression: Hyperglycemia due to diabetes mellitus Depression Qualifiers: Depression Type: other depression Qualified Code(s): F32.89 - Other specified depressive episodes Forms: ED Department Discharge Care Plan Goals: The patient was advised of the examination, EKG and lab result during the visit. The patient was encouraged to check his blood sugar more often and treat high blood sugar levels as directed. The patient was also encouraged to visit with a counselor. If the patient has any additional symptoms or concerns, the patient should either return to the emergency department or visit his primary care facility. Sepsis Event Note (ED) - Evaluation Sepsis Screening Result: No Definite Risk - Focused Exam Vital Signs: Vital Signs Temp Pulse Resp BP Pulse Ox 06/13/20 16:10 36.5 C 99 16 139/92 H 100 - My Orders Last 24 Hours: My Active Orders 06/13/20 16:05 EKG Documentation Completion [RC] STAT 06/13/20 16:15 CULTURE BLOOD [BC] Stat - Assessment/Plan Last 24 Hours: My Active Orders 06/13/20 16:05 EKG Documentation Completion [RC] STAT 06/13/20 16:15 CULTURE BLOOD [BC] Stat
[2020-06-13 16:54] LABS: ANION GAP 25.3 mEq/L (7-13); CHLORIDE,CL 89 mmol/L (98-107); SODIUM,NA 125 mmol/L (136-145)
== END 2020-06-13 18:00 | disposition home or self-care (01) ==
LOC: DL.ED 15:59
DX: E11.65 Type 2 diabetes mellitus with hyperglycemia (principal); F32.89 Other specified depressive episodes; F17.210 Nicotine dependence, cigarettes, uncomplicated; E78.00 Pure hypercholesterolemia, unspecified; Z79.4 Long term (current) use of insulin; Z79.899 Other long term (current) drug therapy
CPT/HCPCS: 36415; 71045; 80053; 82009; 83605; 84484; 85025; 87040; 93005; 99285-25

== ENCOUNTER 2020-07-08 15:54 | Inpatient (IN) | payer BC ==
--- NOTE | 2020-07-08 16:42 | EDM.PDOC ---
ED HPI GENERAL MEDICAL PROBLEM - General Stated Complaint: DIABETES ALTHILLARY SENT HIM Time Seen by Provider: 07/08/20 16:25 Source of Information: Reports: Patient History Limitations: Reports: No Limitations - History of Present Illness INITIAL COMMENTS - FREE TEXT/NARRATIVE: This 50 yo male patient reports to the ED due to being advised to come to the ED yesterday due to elevated blood sugar levels and his electrolytes being off. The patient reports he has not been taking his medications as directed. The patient reports he last took his long acting insulin on Saturday or Saturday night and he took 44 units. The patient reports he took about 8 units of fast acting insulin this morning after breakfast. The patient reports he has not been taking home blood sugars. The patient reports he gets his insulin from his bladimir, because his bladimir "gets so much that he can just give it to me." The patient reports he had his lab drawn in the Clinic on Saturday. This patient has been seen several times in the past with elevated blood sugar levels, but has refused admission. The patient reports the last time he was admitted due to elevated blood sugar levels, he was given too much fluid and became fluid overloaded. Onset: Unknown/Unsure Duration: Week(s):, Constant Location: Reports: Generalized Quality: Reports: Other Severity: Moderate Improves with: Reports: None Worsens with: Reports: None Context: Reports: Other Associated Symptoms: Reports: No Other Symptoms - Related Data Allergies Allergy/AdvReac Type Severity Reaction Status Date / Time No Known Allergies Allergy Verified 07/08/20 16:25 Home Meds: Home Meds metFORMIN [Glucophage] 1,000 mg PO BID 05/27/15 [History] Insulin Aspart [Novolog Flexpen] 6 units SQ BIDMEALS 04/30/17 [History] Insulin Detemir [Levemir] 38 units SQ BEDTIME 04/30/17 [History] Fenofibrate Nanocrystallized [Fenofibrate] 145 mg PO DAILY 01/04/20 [History] Past Medical History - Past Health History Medical/Surgical History: Denies Medical/Surgical History HEENT History: Reports: Hard of Hearing, Impaired Vision Other HEENT History: has hearing aide Cardiovascular History: Reports: Heart Murmur, High Cholesterol, Other (See Below) Other Cardiovascular History: CHRONIC VENOUS INSUFFICIENCY Respiratory History: Reports: None Gastrointestinal History: Reports: Colon Polyp, Hemorrhoids Genitourinary History: Reports: None Musculoskeletal History: Reports: Other (See Below) Other Musculoskeletal History: Fx rt. hand Neurological History: Reports: None Psychiatric History: Reports: Depression Other Psychiatric History: States he has been depressed since his divorce 4 year ago. Endocrine/Metabolic History: Reports: Diabetes, Type II Hematologic History: Reports: None Immunologic History: Reports: None Oncologic (Cancer) History: Reports: None Dermatologic History: Reports: Other (See Below) Other Dermatologic History: INFECTED CYST RIGHT SCROTUM - Infectious Disease History Infectious Disease History: Reports: Chicken Pox - Past Surgical History HEENT Surgical History: Reports: None Cardiovascular Surgical History: Reports: None Respiratory Surgical History: Reports: None GI Surgical History: Reports: Colonoscopy, Polypectomy Male Surgical History: Reports: None Endocrine Surgical History: Reports: None Neurological Surgical History: Reports: None Musculoskeletal Surgical History: Reports: Other (See Below) Other Musculoskeletal Surgeries/Procedures:: varicose vein stripping. PLATE AND SCREWS IN RIGHT HAND Dermatological Surgical History: Reports: None Social & Family History - Family History Family Medical History: No Pertinent Family History - Caffeine Use Caffeine Use: Reports: Coffee - Living Situation & Occupation Living situation: Reports: with Significant Other Occupation: Employed ED ROS GENERAL - Review of Systems Review Of Systems: Comprehensive ROS is negative, except as noted in HPI. ED EXAM, GENERAL - Physical Exam Exam: See Below Exam Limited By: No Limitations General Appearance: Alert, WD/WN, Moderate Distress Eye Exam: Bilateral Eye: EOMI, Normal Inspection, PERRL Ears: Normal External Exam, Normal Canal, Hearing Grossly Normal, Normal TMs Nose: Normal Inspection, Normal Mucosa, No Blood Throat/Mouth: Normal Inspection, Normal Lips, Normal Teeth, Normal Gums, Normal Oropharynx, Normal Voice, No Airway Compromise Head: Atraumatic, Normocephalic Neck: Normal Inspection, Supple, Non-Tender, Full Range of Motion Respiratory/Chest: No Respiratory Distress, Lungs Clear, Normal Breath Sounds, No Accessory Muscle Use, Chest Non-Tender Cardiovascular: Normal Peripheral Pulses, Regular Rate, Rhythm, No Edema, No Gallop, No JVD, No Murmur, No Rub GI/Abdominal: Normal Bowel Sounds, Soft, Non-Tender, No Organomegaly, No Distention, No Abnormal Bruit, No Mass (Male) Exam: Deferred Rectal (Males) Exam: Deferred Back Exam: Normal Inspection, Full Range of Motion, NT Extremities: Normal Inspection, Normal Range of Motion, Non-Tender, Normal Capillary Refill, No Pedal Edema Neurological: Alert, Oriented, CN II-XII Intact, Normal Cognition, Normal Gait, Normal Reflexes, No Motor/Sensory Deficits Psychiatric: Normal Affect, Depressed Mood Skin Exam: Warm, Dry, Intact, Normal Color, No Rash Lymphatic: No Adenopathy Course - Vital Signs Last Recorded V/S: Last Vital Signs Temp 36.6 C 07/08/20 16:19 Pulse 99 07/08/20 16:19 Resp 14 07/08/20 16:19 BP 111/78 07/08/20 16:19 Pulse Ox 96 07/08/20 16:19 - Orders/Labs/Meds Orders: Active Orders 24 hr Category Date Time Status Admission Diagnosis [ADT] Stat ADT 07/08/20 18:04 Ordered Admission Status [Patient Status] [ADT] Routine ADT 07/08/20 18:04 Ordered Dextrose 50% in Water Med 07/08/20 17:19 Ordered 50 ml IV ASDIRECTED PRN Dextrose 50% in Water Med 07/08/20 18:03 Ordered 50 ml IV ASDIRECTED PRN Glucagon,Human Recombinant [GlucaGen] Med 07/08/20 17:19 Ordered 1 mg IM ASDIRECTED PRN Glucagon,Human Recombinant [GlucaGen] Med 07/08/20 18:03 Ordered 1 mg IM ASDIRECTED PRN Sodium Chloride 0.9% @ 125 MLS/HR (1000ml) Med 07/08/20 17:30 Ordered Sodium Chloride 0.9% [Normal Saline] 1,000 ml IV ASDIRECTED Medication Orders Dextrose/Water (Dextrose 50% In Water) 50 ml IV ASDIRECTED PRN PRN Reason: Hypoglycemia Dextrose/Water (Dextrose 50% In Water) 50 ml IV ASDIRECTED PRN PRN Reason: Hypoglycemia Glucagon (Glucagen) 1 mg IM ASDIRECTED PRN PRN Reason: Hypoglycemia Glucagon (Glucagen) 1 mg IM ASDIRECTED PRN PRN Reason: Hypoglycemia Sodium Chloride (Normal Saline) 1,000 mls @ 125 mls/hr IV ASDIRECTED [place] Last Admin: 07/08/20 17:29 Dose: 125 mls/hr Documented by: CHRIS Labs: Laboratory Tests 07/08/20 07/08/20 07/08/20 Range/Units 16:11 16:45 16:48 WBC 5.0 (5.0-10.0) 10^3/uL RBC 3.83 L (4.6-6.2) 10^6/uL Hgb 12.4 L D (14.0-18.0) g/dL Hct 34.8 L (40.0-54.0) % MCV 90.9 (80-100) fL MCH 32.4 (27.0-34.0) pg MCHC 35.6 H (33.0-35.0) g/dL Plt Count 178 (150-450) 10^3/uL Neut % (Auto) 68.8 (42.2-75.2) % Lymph % (Auto) 20.6 (20.5-50.1) % [place] % (Auto) 9.0 H (2-8) % Eos % (Auto) 0.6 L (1.0-3.0) % Baso % (Auto) 1.0 (0.0-1.0) % ABG pH 7.37 (7.35-7.45) ABG pCO2 44 (35-45) mmHg ABG pO2 53 L (70-100) mmHg ABG HCO3 24.7 (22-26) mmol/L ABG O2 Saturation 87 L (95-100) % ABG Base Excess 0 ((-2)-(+3)) mmol/L Jovi Test Lb O2 Delivery Device Room air Oxygen Flow Rate 0 Sodium (136-145) mmol/L Potassium (3.5-5.1) mmol/L Chloride (98-107) mmol/L Carbon Dioxide (21-32) mmol/L Anion Gap (7-13) mEq/L BUN (7-18) mg/dL Creatinine (0.70-1.30) mg/dL Est Cr Clr Drug Dosing mL/min Estimated GFR (MDRD) BUN/Creatinine Ratio (No establ ref range) Glucose (74-99) mg/dL POC Glucose > 500 H* (70-105) mg/dl Calcium (8.5-10.1) mg/dL Total Bilirubin (0.2-1.0) mg/dL AST (15-37) U/L ALT (16-63) U/L Alkaline Phosphatase (46-116) U/L Total Protein (6.4-8.2) g/dL Albumin (3.4-5.0) g/dL Globulin Albumin/Globulin Ratio Urine Color (YELLOW) Urine Appearance (CLEAR) Urine pH (5.0-9.0) Ur Specific [place] (1.005-1.030) Urine Protein (NEGATIVE) Urine Glucose (UA) (NEGATIVE) Urine Ketones (NEGATIVE) Urine Occult Blood (NEGATIVE) Urine Nitrite (NEGATIVE) Urine Bilirubin (NEGATIVE) Urine Urobilinogen (0.2-1.0) mg/dL Ur Leukocyte Esterase (NEGATIVE) Urine Opiates Screen (NEGATIVE) Ur Oxycodone Screen (NEGATIVE) Urine Methadone Screen (NEGATIVE) Ur Barbiturates Screen (NEGATIVE) U Tricyclic Antidepress (NEGATIVE) Ur Phencyclidine Scrn (NEGATIVE) Ur Amphetamine Screen (NEGATIVE) U Methamphetamines Scrn (NEGATIVE) Urine MDMA Screen (NEGATIVE) U Benzodiazepines Scrn (NEGATIVE) Urine Cocaine Screen (NEGATIVE) U Marijuana (THC) Screen (NEGATIVE) Ethyl Alcohol (0) mg/dL Ketones 07/08/20 07/08/20 07/08/20 Range/Units 16:48 16:50 16:50 WBC (5.0-10.0) 10^3/uL RBC (4.6-6.2) 10^6/uL Hgb (14.0-18.0) g/dL Hct (40.0-54.0) % MCV (80-100) fL MCH (27.0-34.0) pg MCHC (33.0-35.0) g/dL Plt Count (150-450) 10^3/uL Neut % (Auto) (42.2-75.2) % Lymph % (Auto) (20.5-50.1) % [place] % (Auto) (2-8) % Eos % (Auto) (1.0-3.0) % Baso % (Auto) (0.0-1.0) % ABG pH (7.35-7.45) ABG pCO2 (35-45) mmHg ABG pO2 (70-100) mmHg ABG HCO3 (22-26) mmol/L ABG O2 Saturation (95-100) % ABG Base Excess ((-2)-(+3)) mmol/L Jovi Test O2 Delivery Device Oxygen Flow Rate Sodium 129 L (136-145) mmol/L Potassium 4.6 (3.5-5.1) mmol/L Chloride 92 L (98-107) mmol/L Carbon Dioxide 25 (21-32) mmol/L Anion Gap 16.6 H (7-13) mEq/L BUN 15 (7-18) mg/dL Creatinine 0.95 (0.70-1.30) mg/dL Est Cr Clr Drug Dosing 105.75 mL/min Estimated GFR (MDRD) > 60 BUN/Creatinine Ratio 15.8 (No establ ref range) Glucose 602 H* (74-99) mg/dL POC Glucose (70-105) mg/dl Calcium 8.2 L (8.5-10.1) mg/dL Total Bilirubin 0.4 (0.2-1.0) mg/dL AST < 5 L (15-37) U/L ALT 11 L (16-63) U/L Alkaline Phosphatase 92 (46-116) U/L Total Protein 5.8 L (6.4-8.2) g/dL Albumin 3.3 L (3.4-5.0) g/dL Globulin 2.5 Albumin/Globulin Ratio 1.32 Urine Color Yellow (YELLOW) Urine Appearance Clear (CLEAR) Urine pH 5.5 (5.0-9.0) Ur Specific [place] 1.010 (1.005-1.030) Urine Protein Negative (NEGATIVE) Urine Glucose (UA) 500 H (NEGATIVE) Urine Ketones 80 H (NEGATIVE) Urine Occult Blood Negative (NEGATIVE) Urine Nitrite Negative (NEGATIVE) Urine Bilirubin Negative (NEGATIVE) Urine Urobilinogen 0.2 (0.2-1.0) mg/dL Ur Leukocyte Esterase Negative (NEGATIVE) Urine Opiates Screen Negative (NEGATIVE) Ur Oxycodone Screen Negative (NEGATIVE) Urine Methadone Screen Negative (NEGATIVE) Ur Barbiturates Screen Negative (NEGATIVE) U Tricyclic Antidepress Negative (NEGATIVE) Ur Phencyclidine Scrn Negative (NEGATIVE) Ur Amphetamine Screen Negative (NEGATIVE) U Methamphetamines Scrn Negative (NEGATIVE) Urine MDMA Screen Negative (NEGATIVE) U Benzodiazepines Scrn Negative (NEGATIVE) Urine Cocaine Screen Negative (NEGATIVE) U Marijuana (THC) Screen Negative (NEGATIVE) Ethyl Alcohol < 3 (0) mg/dL Ketones Positive Meds: Medications Generic Name Dose Route Start Last Admin Trade Name Freq PRN Reason Stop Dose Admin Dextrose/Water 50 ml 07/08/20 17:19 Dextrose 50% In Water IV ASDIRECTED PRN Hypoglycemia Dextrose/Water 50 ml 07/08/20 18:03 Dextrose 50% In Water IV ASDIRECTED PRN Hypoglycemia Glucagon 1 mg 07/08/20 17:19 Glucagen IM ASDIRECTED PRN Hypoglycemia Glucagon 1 mg 07/08/20 18:03 Glucagen IM ASDIRECTED PRN Hypoglycemia Sodium Chloride 1,000 mls @ 125 mls/hr 07/08/20 17:30 07/08/20 17:29 Normal Saline IV 125 mls/hr ASDIRECTED [place] Administration Discontinued Medications Generic Name Dose Route Start Last Admin Trade Name Freq PRN Reason Stop Dose Admin Insulin Glargine 30 unit 07/08/20 18:03 Lantus SUBCUT 07/08/20 18:04 ONETIME ONE Insulin Human Regular 5 unit 07/08/20 17:19 07/08/20 17:30 Humulin R IV 07/08/20 17:20 5 units ONETIME ONE Administration Departure - Departure Time of Disposition: 18:08 Disposition: Admitted As Inpatient 64 Condition: Fair Clinical Impression: Hyperglycemia due to type 1 diabetes mellitus - Discharge Information *PRESCRIPTION DRUG MONITORING PROGRAM REVIEWED*: Not Applicable *COPY OF PRESCRIPTION DRUG MONITORING REPORT IN PATIENT SARAH: Not Applicable Care Plan Goals: Discussed the patient's history, examination, lab and treatments with Dr. Fernandez. Dr. Fernandez accepted the patient for continued evaluation and further management as an inpatient at [facility] in [place]. The patient's IV is Normal Saline at 200 mls/hr. The patient was given 30 units of Lantus IM while in the ED. Sepsis Event Note (ED) - Evaluation Sepsis Screening Result: No Definite Risk - Focused Exam Vital Signs: Vital Signs Temp Pulse Resp BP Pulse Ox 07/08/20 16:19 36.6 C 99 14 111/78 96 - My Orders Last 24 Hours: My Active Orders 07/08/20 17:19 Dextrose 50% in Water 50 ml IV ASDIRECTED PRN Glucagon,Human Recombinant [GlucaGen] 1 mg IM ASDIRECTED PRN 07/08/20 17:30 Sodium Chloride 0.9% @ 125 MLS/HR (1000ml) Sodium Chloride 0.9% [Normal Saline] 1,000 ml IV ASDIRECTED 07/08/20 18:03 Dextrose 50% in Water 50 ml IV ASDIRECTED PRN Glucagon,Human Recombinant [GlucaGen] 1 mg IM ASDIRECTED PRN 07/08/20 18:04 Admission Diagnosis [ADT] Stat Admission Status [Patient Status] [ADT] Routine - Assessment/Plan Last 24 Hours: My Active Orders 07/08/20 17:19 Dextrose 50% in Water 50 ml IV ASDIRECTED PRN Glucagon,Human Recombinant [GlucaGen] 1 mg IM ASDIRECTED PRN 07/08/20 17:30 Sodium Chloride 0.9% @ 125 MLS/HR (1000ml) Sodium Chloride 0.9% [Normal Saline] 1,000 ml IV ASDIRECTED 07/08/20 18:03 Dextrose 50% in Water 50 ml IV ASDIRECTED PRN Glucagon,Human Recombinant [GlucaGen] 1 mg IM ASDIRECTED PRN 07/08/20 18:04 Admission Diagnosis [ADT] Stat Admission Status [Patient Status] [ADT] Routine
[2020-07-08 16:46] LABS: BASE EXCESS ARTERIAL 0 mmol/L ((-2)-(+3)); BICARBONATE,ARTERIAL 24.7 mmol/L (22-26); O2 DELIVERY DEVICE ROOM AIR; O2 SATURATION ARTERIAL 87 % (95-100); PCO2 ARTERIAL 44 mmHg (35-45); PO2 ARTERIAL 53 mmHg (70-100)
[2020-07-08 16:48] LABS: ALLEN TEST LB; O2 FLOW RATE 0
[2020-07-08] MEDS ORDERED: 50% Dextrose in Water 50 ML Syringe IV PRN ×3 (17:19→21:14)
[2020-07-08] MEDS ORDERED: Glucagon,Human Recombinant 1 MG Vial IM PRN ×2 (17:19→18:03)
[2020-07-08] MEDS ORDERED: Insulin Regular, Human 100 Units/ML 3 ML Vial IV ONE (17:19)
[2020-07-08 17:22] LABS: ANION GAP 16.6 mEq/L (7-13); CHLORIDE,CL 92 mmol/L (98-107); SODIUM,NA 129 mmol/L (136-145)
[2020-07-08] MEDS ORDERED: Sodium Chloride 0.9% 1,000 ML IV SCH (17:30)
[2020-07-08] MEDS ORDERED: Insulin Glarg,Human.Rec.Analog 100 Unit/ML SUBCUT ONE ×2 (18:03→21:12)
[2020-07-08] MEDS ORDERED: Ondansetron 4 MG/2 ML SDV IVPUSH PRN (18:32)
--- NOTE | 2020-07-08 18:38 | PCM.HP ---
H&P History of Present Illness - General Date of Service: 07/08/20 Admit Problem/Dx: Admission Diagnosis/Problem Admission Diagnosis/Problem Hyperglycemia Source of Information: Patient - History of Present Illness Initial Comments - Free Text/Narative: Is a 50-year-old man with medical history of diabetes mellitus, depression, dyslipidemia. The patient presented to the emergency room because of weakness and high blood sugar. He checked his blood sugar and found it to be elevated in the past 24 hours.. Presented to the emergency room and was found to have blood sugar of 602. Patient tells me that he has not been using his insulin as recommended. He feels depressed and does not always seem to need to take his insulin. Denies chest pain. Denies shortness of breath fever chills or rigors. Has mild cough that is mostly nonproductive. - Related Data Allergies/Adverse Reactions: Allergies Allergy/AdvReac Type Severity Reaction Status Date / Time No Known Allergies Allergy Verified 07/08/20 16:25 Home Medications: Home Meds metFORMIN [Glucophage] 1,000 mg PO BID 05/27/15 [History] Insulin Aspart [Novolog Flexpen] 6 units SQ BIDMEALS 04/30/17 [History] Insulin Detemir [Levemir] 40 units SQ BEDTIME 04/30/17 [History] Fenofibrate Nanocrystallized [Fenofibrate] 145 mg PO DAILY 01/04/20 [History] Aspirin [Aspirin EC] 81 mg PO DAILY 07/08/20 [History] Cholecalciferol (Vitamin D3) [Vitamin D3] 1,000 unit PO DAILY 07/08/20 [History] DULoxetine [Cymbalta] 30 mg PO DAILY 07/08/20 [History] Flaxseed Oil 1,000 mg PO DAILY 07/08/20 [History] Gabapentin [Neurontin] 300 mg PO TID 07/08/20 [History] Multivitamin 1 each PO DAILY 07/08/20 [History] [place]-3/DHA/Epa/Fish Oil [Port Tobacco 3 500 Softgel] 1,000 mg PO DAILY 07/08/20 [History] atorvaSTATin [Lipitor] 20 mg PO DAILY 07/08/20 [History] Past Medical History - Past Health History Medical/Surgical History: Denies Medical/Surgical History HEENT History: Reports: Hard of Hearing, Impaired Vision Other HEENT History: has hearing aide Cardiovascular History: Reports: Heart Murmur, High Cholesterol, Other (See Below) Other Cardiovascular History: CHRONIC VENOUS INSUFFICIENCY Respiratory History: Reports: None Gastrointestinal History: Reports: Colon Polyp, Hemorrhoids Genitourinary History: Reports: None Musculoskeletal History: Reports: Other (See Below) Other Musculoskeletal History: Fx rt. hand Neurological History: Reports: None Psychiatric History: Reports: Depression Other Psychiatric History: States he has been depressed since his divorce 4 year ago. Endocrine/Metabolic History: Reports: Diabetes, Type II Hematologic History: Reports: None Immunologic History: Reports: None Oncologic (Cancer) History: Reports: None Dermatologic History: Reports: Other (See Below) Other Dermatologic History: INFECTED CYST RIGHT SCROTUM - Infectious Disease History Infectious Disease History: Reports: Chicken Pox - Past Surgical History HEENT Surgical History: Reports: None Cardiovascular Surgical History: Reports: None Respiratory Surgical History: Reports: None GI Surgical History: Reports: Colonoscopy, Polypectomy Male Surgical History: Reports: None Endocrine Surgical History: Reports: None Neurological Surgical History: Reports: None Musculoskeletal Surgical History: Reports: Other (See Below) Other Musculoskeletal Surgeries/Procedures:: varicose vein stripping. PLATE AND SCREWS IN RIGHT HAND Dermatological Surgical History: Reports: None Social & Family History - Family History Family Medical History: No Pertinent Family History - Caffeine Use Caffeine Use: Reports: Coffee - Living Situation & Occupation Living situation: Reports: with Significant Other Occupation: Employed H&P Review of Systems - Review of Systems: Review Of Systems: See Below General: Reports: Malaise, Weakness Pulmonary: Reports: No Symptoms Cardiovascular: Reports: No Symptoms Gastrointestinal: Reports: No Symptoms Psychiatric: Reports: Depression, Anxiety, Other (Denies feeling suicidal) Exam - Exam Exam: See Below - Vital Signs Vital Signs: Last Vital Signs Temp 36.6 C 07/08/20 16:19 Pulse 99 07/08/20 16:19 Resp 14 07/08/20 16:19 BP 111/78 07/08/20 16:19 Pulse Ox 96 07/08/20 16:19 Weight: 84.005 kg - Exam General: Alert, Oriented, Cooperative HEENT: PERRLA, Hearing Intact, Mucosa Moist & [place], Nares Patent, Normal Nasal Septum, Posterior Pharynx Clear, Conjunctiva Clear, EOMI, EACs Clear, TMs Clear Neck: Supple, Trachea Midline, 2 Lungs: Clear to Auscultation, Normal Respiratory Effort Cardiovascular: Regular Rate, Regular Rhythm GI/Abdominal Exam: Normal Bowel Sounds, Soft, Non-Tender, No Organomegaly, No Distention, No Abnormal Bruit, No Mass, Pelvis Stable Back Exam: Normal Inspection, Full Range of Motion, NT Extremities: Normal Inspection, Normal Range of Motion, Non-Tender, No Pedal Edema, Normal Capillary Refill - Patient Data Lab Results Last 24 hrs: Laboratory Results - last 24 hr 07/08/20 07/08/20 07/08/20 Range/Units 16:11 16:45 16:48 WBC 5.0 (5.0-10.0) 10^3/uL RBC 3.83 L (4.6-6.2) 10^6/uL Hgb 12.4 L D (14.0-18.0) g/dL Hct 34.8 L (40.0-54.0) % MCV 90.9 (80-100) fL MCH 32.4 (27.0-34.0) pg MCHC 35.6 H (33.0-35.0) g/dL Plt Count 178 (150-450) 10^3/uL Neut % (Auto) 68.8 (42.2-75.2) % Lymph % (Auto) 20.6 (20.5-50.1) % Ellis % (Auto) 9.0 H (2-8) % Eos % (Auto) 0.6 L (1.0-3.0) % Baso % (Auto) 1.0 (0.0-1.0) % ABG pH 7.37 (7.35-7.45) ABG pCO2 44 (35-45) mmHg ABG pO2 53 L (70-100) mmHg ABG HCO3 24.7 (22-26) mmol/L ABG O2 Saturation 87 L (95-100) % ABG Base Excess 0 ((-2)-(+3)) mmol/L Jovi Test Lb O2 Delivery Device Room air Oxygen Flow Rate 0 Sodium (136-145) mmol/L Potassium (3.5-5.1) mmol/L Chloride (98-107) mmol/L Carbon Dioxide (21-32) mmol/L Anion Gap (7-13) mEq/L BUN (7-18) mg/dL Creatinine (0.70-1.30) mg/dL Est Cr Clr Drug Dosing mL/min Estimated GFR (MDRD) BUN/Creatinine Ratio (No establ ref range) Glucose (74-99) mg/dL POC Glucose > 500 H* (70-105) mg/dl Calcium (8.5-10.1) mg/dL Total Bilirubin (0.2-1.0) mg/dL AST (15-37) U/L ALT (16-63) U/L Alkaline Phosphatase (46-116) U/L Total Protein (6.4-8.2) g/dL Albumin (3.4-5.0) g/dL Globulin Albumin/Globulin Ratio Urine Color (YELLOW) Urine Appearance (CLEAR) Urine pH (5.0-9.0) Ur Specific [place] (1.005-1.030) Urine Protein (NEGATIVE) Urine Glucose (UA) (NEGATIVE) Urine Ketones (NEGATIVE) Urine Occult Blood (NEGATIVE) Urine Nitrite (NEGATIVE) Urine Bilirubin (NEGATIVE) Urine Urobilinogen (0.2-1.0) mg/dL Ur Leukocyte Esterase (NEGATIVE) Urine Opiates Screen (NEGATIVE) Ur Oxycodone Screen (NEGATIVE) Urine Methadone Screen (NEGATIVE) Ur Barbiturates Screen (NEGATIVE) U Tricyclic Antidepress (NEGATIVE) Ur Phencyclidine Scrn (NEGATIVE) Ur Amphetamine Screen (NEGATIVE) U Methamphetamines Scrn (NEGATIVE) Urine MDMA Screen (NEGATIVE) U Benzodiazepines Scrn (NEGATIVE) Urine Cocaine Screen (NEGATIVE) U Marijuana (THC) Screen (NEGATIVE) Ethyl Alcohol (0) mg/dL Ketones 07/08/20 07/08/20 07/08/20 Range/Units 16:48 16:50 16:50 WBC (5.0-10.0) 10^3/uL RBC (4.6-6.2) 10^6/uL Hgb (14.0-18.0) g/dL Hct (40.0-54.0) % MCV (80-100) fL MCH (27.0-34.0) pg MCHC (33.0-35.0) g/dL Plt Count (150-450) 10^3/uL Neut % (Auto) (42.2-75.2) % Lymph % (Auto) (20.5-50.1) % Ellis % (Auto) (2-8) % Eos % (Auto) (1.0-3.0) % Baso % (Auto) (0.0-1.0) % ABG pH (7.35-7.45) ABG pCO2 (35-45) mmHg ABG pO2 (70-100) mmHg ABG HCO3 (22-26) mmol/L ABG O2 Saturation (95-100) % ABG Base Excess ((-2)-(+3)) mmol/L Jovi Test O2 Delivery Device Oxygen Flow Rate Sodium 129 L (136-145) mmol/L Potassium 4.6 (3.5-5.1) mmol/L Chloride 92 L (98-107) mmol/L Carbon Dioxide 25 (21-32) mmol/L Anion Gap 16.6 H (7-13) mEq/L BUN 15 (7-18) mg/dL Creatinine 0.95 (0.70-1.30) mg/dL Est Cr Clr Drug Dosing 105.75 mL/min Estimated GFR (MDRD) > 60 BUN/Creatinine Ratio 15.8 (No establ ref range) Glucose 602 H* (74-99) mg/dL POC Glucose (70-105) mg/dl Calcium 8.2 L (8.5-10.1) mg/dL Total Bilirubin 0.4 (0.2-1.0) mg/dL AST < 5 L (15-37) U/L ALT 11 L (16-63) U/L Alkaline Phosphatase 92 (46-116) U/L Total Protein 5.8 L (6.4-8.2) g/dL Albumin 3.3 L (3.4-5.0) g/dL Globulin 2.5 Albumin/Globulin Ratio 1.32 Urine Color Yellow (YELLOW) Urine Appearance Clear (CLEAR) Urine pH 5.5 (5.0-9.0) Ur Specific [place] 1.010 (1.005-1.030) Urine Protein Negative (NEGATIVE) Urine Glucose (UA) 500 H (NEGATIVE) Urine Ketones 80 H (NEGATIVE) Urine Occult Blood Negative (NEGATIVE) Urine Nitrite Negative (NEGATIVE) Urine Bilirubin Negative (NEGATIVE) Urine Urobilinogen 0.2 (0.2-1.0) mg/dL Ur Leukocyte Esterase Negative (NEGATIVE) Urine Opiates Screen Negative (NEGATIVE) Ur Oxycodone Screen Negative (NEGATIVE) Urine Methadone Screen Negative (NEGATIVE) Ur Barbiturates Screen Negative (NEGATIVE) U Tricyclic Antidepress Negative (NEGATIVE) Ur Phencyclidine Scrn Negative (NEGATIVE) Ur Amphetamine Screen Negative (NEGATIVE) U Methamphetamines Scrn Negative (NEGATIVE) Urine MDMA Screen Negative (NEGATIVE) U Benzodiazepines Scrn Negative (NEGATIVE) Urine Cocaine Screen Negative (NEGATIVE) U Marijuana (THC) Screen Negative (NEGATIVE) Ethyl Alcohol < 3 (0) mg/dL Ketones Positive 20 Range/Units 18:10 WBC (5.0-10.0) 10^3/uL RBC (4.6-6.2) 10^6/uL Hgb (14.0-18.0) g/dL Hct (40.0-54.0) % MCV (80-100) fL MCH (27.0-34.0) pg MCHC (33.0-35.0) g/dL Plt Count (150-450) 10^3/uL Neut % (Auto) (42.2-75.2) % Lymph % (Auto) (20.5-50.1) % Ellis % (Auto) (2-8) % Eos % (Auto) (1.0-3.0) % Baso % (Auto) (0.0-1.0) % ABG pH (7.35-7.45) ABG pCO2 (35-45) mmHg ABG pO2 (70-100) mmHg ABG HCO3 (22-26) mmol/L ABG O2 Saturation (95-100) % ABG Base Excess ((-2)-(+3)) mmol/L Jovi Test O2 Delivery Device Oxygen Flow Rate Sodium (136-145) mmol/L Potassium (3.5-5.1) mmol/L Chloride (98-107) mmol/L Carbon Dioxide (21-32) mmol/L Anion Gap (7-13) mEq/L BUN (7-18) mg/dL Creatinine (0.70-1.30) mg/dL Est Cr Clr Drug Dosing mL/min Estimated GFR (MDRD) BUN/Creatinine Ratio (No establ ref range) Glucose (74-99) mg/dL POC Glucose 457 H* (70-105) mg/dl Calcium (8.5-10.1) mg/dL Total Bilirubin (0.2-1.0) mg/dL AST (15-37) U/L ALT (16-63) U/L Alkaline Phosphatase (46-116) U/L Total Protein (6.4-8.2) g/dL Albumin (3.4-5.0) g/dL Globulin Albumin/Globulin Ratio Urine Color (YELLOW) Urine Appearance (CLEAR) Urine pH (5.0-9.0) Ur Specific [place] (1.005-1.030) Urine Protein (NEGATIVE) Urine Glucose (UA) (NEGATIVE) Urine Ketones (NEGATIVE) Urine Occult Blood (NEGATIVE) Urine Nitrite (NEGATIVE) Urine Bilirubin (NEGATIVE) Urine Urobilinogen (0.2-1.0) mg/dL Ur Leukocyte Esterase (NEGATIVE) Urine Opiates Screen (NEGATIVE) Ur Oxycodone Screen (NEGATIVE) Urine Methadone Screen (NEGATIVE) Ur Barbiturates Screen (NEGATIVE) U Tricyclic Antidepress (NEGATIVE) Ur Phencyclidine Scrn (NEGATIVE) Ur Amphetamine Screen (NEGATIVE) U Methamphetamines Scrn (NEGATIVE) Urine MDMA Screen (NEGATIVE) U Benzodiazepines Scrn (NEGATIVE) Urine Cocaine Screen (NEGATIVE) U Marijuana (THC) Screen (NEGATIVE) Ethyl Alcohol (0) mg/dL Ketones Result Diagrams: 07/08/20 16:48 18 16:48 Problem List Initiated/Reviewed/Updated: Yes Orders Last 24hrs: Active Orders 24 hr Category Date Time Status Admission Diagnosis [ADT] Stat ADT 07/08/20 18:04 Ordered Admission Status [Patient Status] [ADT] Routine ADT 07/08/20 18:04 Active Patient Status [ADT] Routine ADT 07/08/20 18:32 Ordered Blood Glucose Check, Bedside [RC] QIDACANDBED Care 07/08/20 18:32 Ordered Cardiac Monitoring [RC] CONTINUOUS Care 07/08/20 18:33 Ordered Intake and Output [RC] QSHIFT Care 07/08/20 18:33 Ordered Oxygen Therapy [RC] PRN Care 07/08/20 18:32 Ordered Up ad Ruth [RC] ASDIRECTED Care 07/08/20 18:32 Ordered VTE/DVT Education [RC] PER UNIT ROUTINE Care 07/08/20 18:32 Ordered Vital Signs [RC] Q4H Care 07/08/20 18:32 Ordered Consistent Carbohydrate Diet [DIET] Diet 07/08/20 Dinner Ordered CBC WITH AUTO DIFF [HEME] AM Lab 07/09/20 05:11 Ordered COMPREHENSIVE METABOLIC PN,CMP [CHEM] AM Lab 07/09/20 05:11 Ordered CORONAVIRUS COVID-19 RAPID [MOLEC] Urgent Lab 07/08/20 18:11 Received Dextrose 50% in Water Med 07/08/20 17:19 Active 50 ml IV ASDIRECTED PRN Dextrose 50% in Water Med 07/08/20 18:03 Active 50 ml IV ASDIRECTED PRN Enoxaparin [Lovenox] Med 07/09/20 09:00 Ordered 40 mg SUBCUT DAILY Glucagon,Human Recombinant [GlucaGen] Med 07/08/20 17:19 Active 1 mg IM ASDIRECTED PRN Glucagon,Human Recombinant [GlucaGen] Med 07/08/20 18:03 Active 1 mg IM ASDIRECTED PRN Insulin Aspart [Novolog Flexpen] Med 07/09/20 06:00 Ordered 10 units SQ TIDAC Ondansetron [Zofran] Med 07/08/20 18:32 Ordered 4 mg IVPUSH Q6H PRN Sodium Chloride 0.9% [Normal Saline] 1,000 ml Med 07/08/20 17:30 Active IV ASDIRECTED Sodium Chloride 0.9% [Normal Saline] 1,000 ml Med 07/08/20 18:45 Ordered IV ASDIRECTED Resuscitation Status Routine Resus Stat 07/08/20 18:32 Ordered Medication Orders Dextrose/Water (Dextrose 50% In Water) 50 ml IV ASDIRECTED PRN PRN Reason: Hypoglycemia Dextrose/Water (Dextrose 50% In Water) 50 ml IV ASDIRECTED PRN PRN Reason: Hypoglycemia Enoxaparin Sodium (Lovenox) 40 mg SUBCUT DAILY OH Glucagon (Glucagen) 1 mg IM ASDIRECTED PRN PRN Reason: Hypoglycemia Glucagon (Glucagen) 1 mg IM ASDIRECTED PRN PRN Reason: Hypoglycemia Sodium Chloride (Normal Saline) 1,000 mls @ 125 mls/hr IV ASDIRECTED OH Last Infusion: 07/08/20 18:11 Dose: 200 mls/hr Documented by: Admin: 07/08/20 17:29 Dose: 125 mls/hr Documented by: CHRIS Sodium Chloride (Normal Saline) 1,000 mls @ 200 mls/hr IV ASDIRECTED OH Non-Formulary Medication (Insulin Aspart [Novolog Flexpen]) 10 units SQ TIDAC OH Ondansetron HCl (Zofran) 4 mg IVPUSH Q6H PRN PRN Reason: Nausea/Vomiting Assessment/Plan Comment:: Is a 50-year-old man with medical history of diabetes mellitus type 2, depression, dyslipidemia who presented via the emergency room with complaint of hypoglycemia. Patient was found to have blood sugar of 602, elevated anion gap, normal pH and positive urine ketones. #. Probable early diabetic ketoacidosis Patient's urinalysis is positive for ketones he has mild elevated anion gap However serum bicarbonate is normal as well as pH #. Diabetes mellitus type 2 uncontrolled Blood sugar is 602 #. Hyponatremia Serum sodium is at 129 This is as a result of hyperglycemia #. Depression Patient has been on Cymbalta Was previously on Wellbutrin #. Dyslipidemia Fenofibrate Plan: Admit patient to medical floor Start patient on continuous intravenous fluids going at 200 cc an hour Give insulin Lantus 45 units now Start insulin NovoLog 10 units with meals Monitor blood sugar before meals and at bedtime Patient will require psychiatric evaluation. I think this is the underlying reason behind the poor blood sugar control. He is depressed and does not feel he needs to take care of himself. However denies feeling suicidal at this point
[2020-07-08] MEDS ORDERED: Insulin Lispro 100 Units/ML 3 ML Vial SUBCUT ONE (21:14)
[2020-07-08] MEDS: DULoxetine 30 MG Cap PO SCH (22:50)
[2020-07-08] MEDS: Sodium Chloride 0.9% 1,000 ML IV SCH (23:15)
[2020-07-09] MEDS: Sodium Chloride 0.9% 1,000 ML IV SCH (04:33)
[2020-07-09] MEDS ORDERED: Insulin Lispro 100 Units/ML 3 ML Vial SUBCUT SCH (06:00)
[2020-07-09 07:07] LABS: ANION GAP 12.3 mEq/L (7-13); CHLORIDE,CL 102 mmol/L (98-107); SODIUM,NA 140 mmol/L (136-145)
[2020-07-09 07:58] VITALS: BP 109/70; PULSE 68
[2020-07-09] MEDS: DULoxetine 30 MG Cap PO SCH (08:12)
[2020-07-09] MEDS: Insulin Lispro 100 Units/ML 3 ML Vial SUBCUT SCH ×2 (08:19→12:48)
[2020-07-09] MEDS ORDERED: Gabapentin 300 MG Cap PO SCH (09:00)
[2020-07-09] MEDS ORDERED: Aspirin 81 MG Tab.EC PO SCH (09:00)
[2020-07-09] MEDS ORDERED: Fenofibrate Nanocrystallized 145 MG Tab PO SCH (09:00)
[2020-07-09] MEDS ORDERED: Enoxaparin 40 MG/0.4 ML Syringe SUBCUT SCH (09:00)
[2020-07-09] MEDS ORDERED: atorvaSTATin 20 MG Tab PO SCH (09:00)
[2020-07-09] MEDS ORDERED: Potassium Chloride 10 MEQ Tab.ER PO ONE (09:20)
--- NOTE | 2020-07-09 10:39 | PCM.DCSUM1 ---
Discharge Summary - Hospital Course Free Text/Narrative:: Is a 50-year-old man with medical history of diabetes mellitus, depression, dyslipidemia. The patient presented to the emergency room because of weakness and high blood sugar- was found to have blood sugar of 602. The patient was started on increased dose of insulin and intravenous fluid. His blood sugar is back to normal. He is adamant about being discharged home. Patient has been feeling depressed and this seems to be affecting his ability to take care of himself. He is on Cymbalta but that does is not adequate for controlling his depression. I will make arrangements for outpatient follow-up with psychiatrist for management of his depression and also with dietitian/asthma educator. Final diagnosis #Diabetes mellitus type 2 with hyperglycemia Medication noncompliance Depression Early diabetic ketoacidosis.Anion gap was mildly elevated but bicarbonate was normal. Patient had ketones in the urine Dehydration. Diagnosis: Stroke: No - Discharge Data Discharge Date: 07/09/20 Discharge Disposition: Home, Self-Care 01 Condition: Good - Referral to Home Health Primary Care Physician: PCP None - Patient Instructions Other/Special Instructions: f/up with PMD in one week. Schedule appointment with diabetes educator-one week. Schedule appointment with Psychiatrist 1-2 weeks - Discharge Plan *PRESCRIPTION DRUG MONITORING PROGRAM REVIEWED*: Not Applicable *COPY OF PRESCRIPTION DRUG MONITORING REPORT IN PATIENT SARAH: Not Applicable Prescriptions/Med Rec: Insulin Lispro [HumaLOG] 10 unit SUBCUT TID@0700,1100,1700 #1 pen Home Medications: Home Meds metFORMIN [Glucophage] 1,000 mg PO BID 05/27/15 [History] Insulin Aspart [Novolog Flexpen] 6 units SQ BIDMEALS 04/30/17 [History] Insulin Detemir [Levemir] 40 units SQ BEDTIME 04/30/17 [History] Fenofibrate Nanocrystallized [Fenofibrate] 145 mg PO DAILY 01/04/20 [History] Aspirin [Aspirin EC] 81 mg PO DAILY 07/08/20 [History] DULoxetine [Cymbalta] 30 mg PO DAILY 07/08/20 [History] Gabapentin [Neurontin] 300 mg PO TID 07/08/20 [History] Multivitamin 1 each PO DAILY 07/08/20 [History] [place]-3/DHA/Epa/Fish Oil [[place] 3 500 Softgel] 1,000 mg PO DAILY 07/08/20 [History] atorvaSTATin [Lipitor] 20 mg PO DAILY 07/08/20 [History] Insulin Lispro [HumaLOG] 10 unit SUBCUT TID@0700,1100,1700 #1 pen 07/09/20 [Rx] - Discharge Summary/Plan Comment DC Time >30 min.: No - General Info Date of Service: 07/09/20 - Review of Systems General: Reports: Weakness Pulmonary: Reports: No Symptoms Cardiovascular: Reports: No Symptoms Gastrointestinal: Reports: No Symptoms Psychiatric: Reports: Depression - Patient Data Vitals - Most Recent: Last Vital Signs Temp 36.8 C 07/09/20 07:45 Pulse 68 07/09/20 07:45 Resp 18 07/09/20 07:45 BP 109/70 07/09/20 07:45 Pulse Ox 98 07/09/20 07:45 Weight - Most Recent: 84.005 kg I&O - Last 24 hours: Intake & Output 07/08/20 07/09/20 07/09/20 22:59 06:59 14:59 Intake Total 1600 2000 Balance 1600 2000 Lab Results - Last 24 hrs: Laboratory Results - last 24 hr 07/08/20 07/08/20 07/08/20 Range/Units 16:11 16:45 16:48 WBC 5.0 (5.0-10.0) 10^3/uL RBC 3.83 L (4.6-6.2) 10^6/uL Hgb 12.4 L D (14.0-18.0) g/dL Hct 34.8 L (40.0-54.0) % MCV 90.9 (80-100) fL MCH 32.4 (27.0-34.0) pg MCHC 35.6 H (33.0-35.0) g/dL Plt Count 178 (150-450) 10^3/uL Neut % (Auto) 68.8 (42.2-75.2) % Lymph % (Auto) 20.6 (20.5-50.1) % [place] % (Auto) 9.0 H (2-8) % Eos % (Auto) 0.6 L (1.0-3.0) % Baso % (Auto) 1.0 (0.0-1.0) % ABG pH 7.37 (7.35-7.45) ABG pCO2 44 (35-45) mmHg ABG pO2 53 L (70-100) mmHg ABG HCO3 24.7 (22-26) mmol/L ABG O2 Saturation 87 L (95-100) % ABG Base Excess 0 ((-2)-(+3)) mmol/L Jovi Test Lb O2 Delivery Device Room air Oxygen Flow Rate 0 Sodium (136-145) mmol/L Potassium (3.5-5.1) mmol/L Chloride (98-107) mmol/L Carbon Dioxide (21-32) mmol/L Anion Gap (7-13) mEq/L BUN (7-18) mg/dL Creatinine (0.70-1.30) mg/dL Est Cr Clr Drug Dosing mL/min Estimated GFR (MDRD) BUN/Creatinine Ratio (No establ ref range) Glucose (74-99) mg/dL POC Glucose > 500 H* (70-105) mg/dl Calcium (8.5-10.1) mg/dL Total Bilirubin (0.2-1.0) mg/dL AST (15-37) U/L ALT (16-63) U/L Alkaline Phosphatase (46-116) U/L Total Protein (6.4-8.2) g/dL Albumin (3.4-5.0) g/dL Globulin Albumin/Globulin Ratio Urine Color (YELLOW) Urine Appearance (CLEAR) Urine pH (5.0-9.0) Ur Specific [place] (1.005-1.030) Urine Protein (NEGATIVE) Urine Glucose (UA) (NEGATIVE) Urine Ketones (NEGATIVE) Urine Occult Blood (NEGATIVE) Urine Nitrite (NEGATIVE) Urine Bilirubin (NEGATIVE) Urine Urobilinogen (0.2-1.0) mg/dL Ur Leukocyte Esterase (NEGATIVE) Urine Opiates Screen (NEGATIVE) Ur Oxycodone Screen (NEGATIVE) Urine Methadone Screen (NEGATIVE) Ur Barbiturates Screen (NEGATIVE) U Tricyclic Antidepress (NEGATIVE) Ur Phencyclidine Scrn (NEGATIVE) Ur Amphetamine Screen (NEGATIVE) U Methamphetamines Scrn (NEGATIVE) Urine MDMA Screen (NEGATIVE) U Benzodiazepines Scrn (NEGATIVE) Urine Cocaine Screen (NEGATIVE) U Marijuana (THC) Screen (NEGATIVE) Ethyl Alcohol (0) mg/dL Ketones SARS CoV-2 RNA Rapid DAVION (NEGATIVE) 07/08/20 07/08/20 07/08/20 Range/Units 16:48 16:50 16:50 WBC (5.0-10.0) 10^3/uL RBC (4.6-6.2) 10^6/uL Hgb (14.0-18.0) g/dL Hct (40.0-54.0) % MCV (80-100) fL MCH (27.0-34.0) pg MCHC (33.0-35.0) g/dL Plt Count (150-450) 10^3/uL Neut % (Auto) (42.2-75.2) % Lymph % (Auto) (20.5-50.1) % [place] % (Auto) (2-8) % Eos % (Auto) (1.0-3.0) % Baso % (Auto) (0.0-1.0) % ABG pH (7.35-7.45) ABG pCO2 (35-45) mmHg ABG pO2 (70-100) mmHg ABG HCO3 (22-26) mmol/L ABG O2 Saturation (95-100) % ABG Base Excess ((-2)-(+3)) mmol/L Jovi Test O2 Delivery Device Oxygen Flow Rate Sodium 129 L (136-145) mmol/L Potassium 4.6 (3.5-5.1) mmol/L Chloride 92 L (98-107) mmol/L Carbon Dioxide 25 (21-32) mmol/L Anion Gap 16.6 H (7-13) mEq/L BUN 15 (7-18) mg/dL Creatinine 0.95 (0.70-1.30) mg/dL Est Cr Clr Drug Dosing 105.75 mL/min Estimated GFR (MDRD) > 60 BUN/Creatinine Ratio 15.8 (No establ ref range) Glucose 602 H* (74-99) mg/dL POC Glucose (70-105) mg/dl Calcium 8.2 L (8.5-10.1) mg/dL Total Bilirubin 0.4 (0.2-1.0) mg/dL AST < 5 L (15-37) U/L ALT 11 L (16-63) U/L Alkaline Phosphatase 92 (46-116) U/L Total Protein 5.8 L (6.4-8.2) g/dL Albumin 3.3 L (3.4-5.0) g/dL Globulin 2.5 Albumin/Globulin Ratio 1.32 Urine Color Yellow (YELLOW) Urine Appearance Clear (CLEAR) Urine pH 5.5 (5.0-9.0) Ur Specific [place] 1.010 (1.005-1.030) Urine Protein Negative (NEGATIVE) Urine Glucose (UA) 500 H (NEGATIVE) Urine Ketones 80 H (NEGATIVE) Urine Occult Blood Negative (NEGATIVE) Urine Nitrite Negative (NEGATIVE) Urine Bilirubin Negative (NEGATIVE) Urine Urobilinogen 0.2 (0.2-1.0) mg/dL Ur Leukocyte Esterase Negative (NEGATIVE) Urine Opiates Screen Negative (NEGATIVE) Ur Oxycodone Screen Negative (NEGATIVE) Urine Methadone Screen Negative (NEGATIVE) Ur Barbiturates Screen Negative (NEGATIVE) U Tricyclic Antidepress Negative (NEGATIVE) Ur Phencyclidine Scrn Negative (NEGATIVE) Ur Amphetamine Screen Negative (NEGATIVE) U Methamphetamines Scrn Negative (NEGATIVE) Urine MDMA Screen Negative (NEGATIVE) U Benzodiazepines Scrn Negative (NEGATIVE) Urine Cocaine Screen Negative (NEGATIVE) U Marijuana (THC) Screen Negative (NEGATIVE) Ethyl Alcohol < 3 (0) mg/dL Ketones Positive SARS CoV-2 RNA Rapid DAVION (NEGATIVE) 07/08/20 07/08/20 07/08/20 Range/Units 18:10 18:11 21:05 WBC (5.0-10.0) 10^3/uL RBC (4.6-6.2) 10^6/uL Hgb (14.0-18.0) g/dL Hct (40.0-54.0) % MCV (80-100) fL MCH (27.0-34.0) pg MCHC (33.0-35.0) g/dL Plt Count (150-450) 10^3/uL Neut % (Auto) (42.2-75.2) % Lymph % (Auto) (20.5-50.1) % [place] % (Auto) (2-8) % Eos % (Auto) (1.0-3.0) % Baso % (Auto) (0.0-1.0) % ABG pH (7.35-7.45) ABG pCO2 (35-45) mmHg ABG pO2 (70-100) mmHg ABG HCO3 (22-26) mmol/L ABG O2 Saturation (95-100) % ABG Base Excess ((-2)-(+3)) mmol/L Jovi Test O2 Delivery Device Oxygen Flow Rate Sodium (136-145) mmol/L Potassium (3.5-5.1) mmol/L Chloride (98-107) mmol/L Carbon Dioxide (21-32) mmol/L Anion Gap (7-13) mEq/L BUN (7-18) mg/dL Creatinine (0.70-1.30) mg/dL Est Cr Clr Drug Dosing mL/min Estimated GFR (MDRD) BUN/Creatinine Ratio (No establ ref range) Glucose (74-99) mg/dL POC Glucose 457 H* 486 H* (70-105) mg/dl Calcium (8.5-10.1) mg/dL Total Bilirubin (0.2-1.0) mg/dL AST (15-37) U/L ALT (16-63) U/L Alkaline Phosphatase (46-116) U/L Total Protein (6.4-8.2) g/dL Albumin (3.4-5.0) g/dL Globulin Albumin/Globulin Ratio Urine Color (YELLOW) Urine Appearance (CLEAR) Urine pH (5.0-9.0) Ur Specific [place] (1.005-1.030) Urine Protein (NEGATIVE) Urine Glucose (UA) (NEGATIVE) Urine Ketones (NEGATIVE) Urine Occult Blood (NEGATIVE) Urine Nitrite (NEGATIVE) Urine Bilirubin (NEGATIVE) Urine Urobilinogen (0.2-1.0) mg/dL Ur Leukocyte Esterase (NEGATIVE) Urine Opiates Screen (NEGATIVE) Ur Oxycodone Screen (NEGATIVE) Urine Methadone Screen (NEGATIVE) Ur Barbiturates Screen (NEGATIVE) U Tricyclic Antidepress (NEGATIVE) Ur Phencyclidine Scrn (NEGATIVE) Ur Amphetamine Screen (NEGATIVE) U Methamphetamines Scrn (NEGATIVE) Urine MDMA Screen (NEGATIVE) U Benzodiazepines Scrn (NEGATIVE) Urine Cocaine Screen (NEGATIVE) U Marijuana (THC) Screen (NEGATIVE) Ethyl Alcohol (0) mg/dL Ketones SARS CoV-2 RNA Rapid DAVION Negative (NEGATIVE) 07/09/20 07/09/20 07/09/20 Range/Units 06:30 06:30 07:45 WBC 5.2 (5.0-10.0) 10^3/uL RBC 3.84 L (4.6-6.2) 10^6/uL Hgb 12.3 L (14.0-18.0) g/dL Hct 34.5 L (40.0-54.0) % MCV 89.8 (80-100) fL MCH 32.0 (27.0-34.0) pg MCHC 35.7 H (33.0-35.0) g/dL Plt Count 159 (150-450) 10^3/uL Neut % (Auto) 61.6 (42.2-75.2) % Lymph % (Auto) 23.6 (20.5-50.1) % [place] % (Auto) 12.4 H (2-8) % Eos % (Auto) 1.6 (1.0-3.0) % Baso % (Auto) 0.8 (0.0-1.0) % ABG pH (7.35-7.45) ABG pCO2 (35-45) mmHg ABG pO2 (70-100) mmHg ABG HCO3 (22-26) mmol/L ABG O2 Saturation (95-100) % ABG Base Excess ((-2)-(+3)) mmol/L Jovi Test O2 Delivery Device Oxygen Flow Rate Sodium 140 D (136-145) mmol/L Potassium 3.3 L (3.5-5.1) mmol/L Chloride 102 (98-107) mmol/L Carbon Dioxide 29 (21-32) mmol/L Anion Gap 12.3 (7-13) mEq/L BUN 10 (7-18) mg/dL Creatinine 0.59 L (0.70-1.30) mg/dL Est Cr Clr Drug Dosing 170.28 mL/min Estimated GFR (MDRD) > 60 BUN/Creatinine Ratio 16.9 (No establ ref range) Glucose 147 H (74-99) mg/dL POC Glucose 128 H (70-105) mg/dl Calcium 8.0 L (8.5-10.1) mg/dL Total Bilirubin 0.2 (0.2-1.0) mg/dL AST 9 L (15-37) U/L ALT 12 L (16-63) U/L Alkaline Phosphatase 56 (46-116) U/L Total Protein 4.7 L (6.4-8.2) g/dL Albumin 2.8 L (3.4-5.0) g/dL Globulin 1.9 Albumin/Globulin Ratio 1.47 Urine Color (YELLOW) Urine Appearance (CLEAR) Urine pH (5.0-9.0) Ur Specific [place] (1.005-1.030) Urine Protein (NEGATIVE) Urine Glucose (UA) (NEGATIVE) Urine Ketones (NEGATIVE) Urine Occult Blood (NEGATIVE) Urine Nitrite (NEGATIVE) Urine Bilirubin (NEGATIVE) Urine Urobilinogen (0.2-1.0) mg/dL Ur Leukocyte Esterase (NEGATIVE) Urine Opiates Screen (NEGATIVE) Ur Oxycodone Screen (NEGATIVE) Urine Methadone Screen (NEGATIVE) Ur Barbiturates Screen (NEGATIVE) U Tricyclic Antidepress (NEGATIVE) Ur Phencyclidine Scrn (NEGATIVE) Ur Amphetamine Screen (NEGATIVE) U Methamphetamines Scrn (NEGATIVE) Urine MDMA Screen (NEGATIVE) U Benzodiazepines Scrn (NEGATIVE) Urine Cocaine Screen (NEGATIVE) U Marijuana (THC) Screen (NEGATIVE) Ethyl Alcohol (0) mg/dL Ketones SARS CoV-2 RNA Rapid DAVION (NEGATIVE) Med Orders - Current: Current Medications Aspirin (Halfprin) 81 mg PO DAILY [facility] Last Admin: 07/09/20 08:12 Dose: 81 mg Documented by: Atorvastatin Calcium (Lipitor) 20 mg PO DAILY [facility] Last Admin: 07/09/20 08:12 Dose: 20 mg Documented by: Dextrose/Water (Dextrose 50% In Water) 50 ml IV ASDIRECTED PRN PRN Reason: Hypoglycemia Duloxetine HCl (Cymbalta) 30 mg PO DAILY [facility] Last Admin: 07/09/20 08:12 Dose: 30 mg Documented by: Enoxaparin Sodium (Lovenox) 40 mg SUBCUT DAILY [facility] Last Admin: 07/09/20 08:12 Dose: Not Given Documented by: Fenofibrate (Tricor) 145 mg PO DAILY [facility] Last Admin: 07/09/20 08:12 Dose: 145 mg Documented by: Gabapentin (Neurontin) 300 mg PO TID [facility] Last Admin: 07/09/20 08:12 Dose: 300 mg Documented by: Glucagon (Glucagen) 1 mg IM ASDIRECTED PRN PRN Reason: Hypoglycemia Glucagon (Glucagen) 1 mg IM ASDIRECTED PRN PRN Reason: Hypoglycemia Sodium Chloride (Normal Saline) 1,000 mls @ 200 mls/hr IV ASDIRECTED [facility] Last Admin: 07/09/20 04:33 Dose: 200 mls/hr Documented by: Insulin Human Lispro (Humalog) 10 unit SUBCUT TID@0700,1100,1700 [facility] Last Admin: 07/09/20 08:19 Dose: 10 unit Documented by: Ondansetron HCl (Zofran) 4 mg IVPUSH Q6H PRN PRN Reason: Nausea/Vomiting Discontinued Medications Dextrose/Water (Dextrose 50% In Water) 50 ml IV ASDIRECTED PRN PRN Reason: Hypoglycemia Dextrose/Water (Dextrose 50% In Water) 50 ml IV ASDIRECTED PRN PRN Reason: Hypoglycemia Sodium Chloride (Normal Saline) 1,000 mls @ 125 mls/hr IV ASDIRECTED [facility] Last Infusion: 07/08/20 18:11 Dose: 200 mls/hr Documented by: Insulin Glargine (Lantus) 30 unit SUBCUT ONETIME ONE Stop: 07/08/20 18:04 Last Admin: 07/08/20 18:12 Dose: 30 units Documented by: Insulin Glargine (Lantus) 15 unit SUBCUT ONETIME ONE Stop: 07/08/20 21:13 Last Admin: 07/08/20 21:32 Dose: 15 units Documented by: Insulin Human Lispro (Humalog) 10 unit SUBCUT TIDAC [facility] Last Admin: 07/09/20 06:38 Dose: Not Given Documented by: Insulin Human Lispro (Humalog) 10 unit SUBCUT ONETIME ONE Stop: 07/08/20 21:15 Last Admin: 07/08/20 21:31 Dose: 10 units Documented by: Insulin Human Regular (Humulin R) 5 unit IV ONETIME ONE Stop: 07/08/20 17:20 Last Admin: 07/08/20 17:30 Dose: 5 units Documented by: Potassium Chloride (Klor-Con 10) 20 meq PO ONETIME ONE Stop: 07/09/20 09:21 Last Admin: 07/09/20 10:17 Dose: 20 meq Documented by: - Exam General: Reports: Alert, Oriented, Cooperative Neck: Reports: Supple Lungs: Reports: Clear to Auscultation, Normal Respiratory Effort Skin: Reports: Warm, Dry, Intact Psy/Mental Status: Reports: Depressed
[2020-07-09] MEDS ORDERED: Acetaminophen 325 MG Tab PO PRN (10:55)
== END 2020-07-09 14:02 | disposition home or self-care (01) | DRG 420 ==
LOC: DL.ED 15:54 → DL.MS 18:28
PROVIDERS: ADMIT Hospitalist; ATTEND Hospitalist
DX: E11.10 Type 2 diabetes mellitus with ketoacidosis without coma (principal); E87.1 Hypo-osmolality and hyponatremia; F32.9 Major depressive disorder, single episode, unspecified; E86.0 Dehydration; E78.5 Hyperlipidemia, unspecified; H91.90 Unspecified hearing loss, unspecified ear; H54.7 Unspecified visual loss; E78.00 Pure hypercholesterolemia, unspecified; Z20.828 Contact with and (suspected) exposure to other viral communicable diseases; Z79.4 Long term (current) use of insulin; Z91.19 Patient's noncompliance with other medical treatment and regimen; Z79.899 Other long term (current) drug therapy; Z79.82 Long term (current) use of aspirin; Z86.010 Personal history of colon polyps
CPT/HCPCS: 36415; 36600; 80053; 80305-QW; 80307; 81003; 82009; 82803; 82962; 85025; 99284; A9270-GY; J1815-GY; J7030; U0002

== ENCOUNTER 2020-11-14 15:22 | Emergency (ER) | payer BC ==
--- NOTE | 2020-11-14 15:53 | EDM.PDOC ---
ED HPI GENERAL MEDICAL PROBLEM - General Chief Complaint: Respiratory Problem Stated Complaint: [id number] SOB Time Seen by Provider: 11/14/20 16:30 Source of Information: Reports: Patient, Old Records, RN, RN Notes Reviewed History Limitations: Reports: No Limitations - History of Present Illness INITIAL COMMENTS - FREE TEXT/NARRATIVE: Patient presents to the ED via personal vehicle with complaints of shortness of breath. The patient reports his shortness of breath began approximately three days ago following administration of his second Moderna COVID vaccination. He states the shortness of breath did not began abruptly, but he noted shortness of breath in the evening three days ago, 11/11/20. He attests to general malaise, fatigue, chest tightness, nausea, and muscle aches following administration of the COVID vaccine. He denies recent illness, sinus congestion/pain, sore throat, chest pain, palpitations, vomiting, or loose stools. Additionally, he notes dry cough. The patient has not taken any medications for these symptoms. He attests to smoking 1/2 pack of cigarettes per day; he has been able to smoke with his shortness of breath. He denies alcohol or recreational drug use. Duration: Waxing/Waning - Related Data Allergies Allergy/AdvReac Type Severity Reaction Status Date / Time No Known Allergies Allergy Verified 11/14/20 15:29 Home Meds: Home Meds metFORMIN [Glucophage] 1,000 mg PO BID 05/27/15 [History] Insulin Aspart [Novolog Flexpen] 6 units SQ BIDMEALS 04/30/17 [History] Insulin Detemir [Levemir] 40 units SQ BEDTIME 04/30/17 [History] Fenofibrate Nanocrystallized [Fenofibrate] 145 mg PO DAILY 01/04/20 [History] Aspirin [Aspirin EC] 81 mg PO DAILY 07/08/20 [History] DULoxetine [Cymbalta] 30 mg PO DAILY 07/08/20 [History] Gabapentin [Neurontin] 300 mg PO TID 07/08/20 [History] Multivitamin 1 each PO DAILY 07/08/20 [History] [place]-3/DHA/Epa/Fish Oil [[place] 3 500 Softgel] 1,000 mg PO DAILY 07/08/20 [History] atorvaSTATin [Lipitor] 20 mg PO DAILY 07/08/20 [History] Insulin Lispro [HumaLOG] 10 unit SUBCUT TID@0573,1100,1700 #1 pen 07/09/20 [Rx] Past Medical History - Past Health History Medical/Surgical History: Denies Medical/Surgical History HEENT History: Reports: Hard of Hearing, Impaired Vision Other HEENT History: has hearing aide Cardiovascular History: Reports: Heart Murmur, High Cholesterol, Other (See Below) Other Cardiovascular History: CHRONIC VENOUS INSUFFICIENCY Respiratory History: Reports: None Gastrointestinal History: Reports: Colon Polyp, Hemorrhoids Genitourinary History: Reports: None Musculoskeletal History: Reports: Other (See Below) Other Musculoskeletal History: Fx rt. hand Neurological History: Reports: None Psychiatric History: Reports: Depression Other Psychiatric History: States he has been depressed since his divorce 4 year ago. Endocrine/Metabolic History: Reports: Diabetes, Type II Hematologic History: Reports: None Immunologic History: Reports: None Oncologic (Cancer) History: Reports: None Dermatologic History: Reports: Other (See Below) Other Dermatologic History: INFECTED CYST RIGHT SCROTUM - Infectious Disease History Infectious Disease History: Reports: Chicken Pox - Past Surgical History HEENT Surgical History: Reports: None Cardiovascular Surgical History: Reports: None Respiratory Surgical History: Reports: None GI Surgical History: Reports: Colonoscopy, Polypectomy Male Surgical History: Reports: None Endocrine Surgical History: Reports: None Neurological Surgical History: Reports: None Musculoskeletal Surgical History: Reports: Other (See Below) Other Musculoskeletal Surgeries/Procedures:: varicose vein stripping. PLATE AND SCREWS IN RIGHT HAND Dermatological Surgical History: Reports: None Social & Family History - Family History Family Medical History: No Pertinent Family History - Caffeine Use Caffeine Use: Reports: None Caffeine Use Comment: multiple cups per day - Recreational Drug Use Recreational Drug Use: No - Living Situation & Occupation Living situation: Reports: with Significant Other Occupation: Employed ED ROS GENERAL - Review of Systems Review Of Systems: Comprehensive ROS is negative, except as noted in HPI. ED EXAM, GENERAL - Physical Exam Exam: See Below Exam Limited By: No Limitations General Appearance: Alert, No Apparent Distress Eye Exam: Bilateral Eye: EOMI, Normal Inspection, PERRL (3mm) Ears: Normal External Exam, Normal Canal, Hearing Grossly Normal, Normal TMs, Other (Bilateral aids) Ear Exam: Bilateral Ear: Auricle Normal, Canal Normal, TM normal Nose: Normal Inspection, Normal Mucosa, No Blood Throat/Mouth: Normal Voice, No Airway Compromise, Other (+3 tonsils, bilaterally). No: Normal Oropharynx (Dry mucous membranes) Head: Atraumatic, Normocephalic Neck: Normal Inspection, Supple, Non-Tender, Full Range of Motion Respiratory/Chest: No Respiratory Distress, Lungs Clear, Normal Breath Sounds, No Accessory Muscle Use, Chest Non-Tender. No: Crackles, Rales, Rhonchi, Wheezing, Stridor Cardiovascular: Normal Peripheral Pulses, Regular Rate, Rhythm, No Edema, No Gallop, No JVD, No Murmur, No Rub Peripheral Pulses: 2+: Radial (L), Radial (R), Dorsalis Pedis (L), Dorsalis Pedis (R) GI/Abdominal: Normal Bowel Sounds, Soft, Non-Tender, No Organomegaly, No Distention, No Abnormal Bruit, No Mass (Male) Exam: Deferred Rectal (Males) Exam: Deferred Back Exam: Normal Inspection, Full Range of Motion. No: CVA Tenderness (L), CVA Tenderness (R) Extremities: Normal Inspection, Normal Range of Motion, Non-Tender, No Pedal Edema, Normal Capillary Refill Neurological: Alert, Oriented, CN II-XII Intact, Normal Cognition, Normal Gait, No Motor/Sensory Deficits Psychiatric: Normal Affect, Normal Mood Skin Exam: Warm, Dry, Intact, Normal Color, No Rash. No: Ecchymosis, Erythema, Jaundice, Mottled, Pallor, Petechiae #1 Interpretation EKG Date: 11/14/20 Time: 17:13 Rhythm: NSR Rate (Beats/Min): 92 [place]: Normal P-Wave: Present QRS: Normal ST-T: Normal QT: Normal Comparison: No Change EKG Interpretation Comments: NSR; No evidence of acute myocardial ischemia Course - Vital Signs Last Recorded V/S: Last Vital Signs Temp 97.9 F 11/14/20 16:03 Pulse 124 H 11/14/20 16:03 Resp 18 11/14/20 16:03 BP 114/89 11/14/20 16:03 Pulse Ox 100 11/14/20 16:03 - Orders/Labs/Meds Labs: Laboratory Tests 11/14/20 11/14/20 11/14/20 Range/Units 16:56 16:56 16:56 WBC 7.3 (5.0-10.0) 10^3/uL RBC 5.11 (4.6-6.2) 10^6/uL Hgb 15.8 D (14.0-18.0) g/dL Hct 44.4 (40.0-54.0) % MCV 86.9 (80-100) fL MCH 30.9 (27.0-34.0) pg MCHC 35.6 H (33.0-35.0) g/dL Plt Count 266 D (150-450) 10^3/uL Neut % (Auto) 69.8 (42.2-75.2) % Lymph % (Auto) 20.0 L (20.5-50.1) % [place] % (Auto) 8.8 H (2-8) % Eos % (Auto) 0.7 L (1.0-3.0) % Baso % (Auto) 0.7 (0.0-1.0) % Sodium 129 L D (136-145) mmol/L Potassium 3.7 (3.5-5.1) mmol/L Chloride 93 L (98-107) mmol/L Carbon Dioxide 23 (21-32) mmol/L Anion Gap 16.7 H (7-13) mEq/L BUN 21 H (7-18) mg/dL Creatinine 0.94 (0.70-1.30) mg/dL Est Cr Clr Drug Dosing 100.85 mL/min Estimated GFR (MDRD) > 60 BUN/Creatinine Ratio 22.3 (No establ ref range) Glucose 223 H (70-99) mg/dL Lactic Acid 0.4 (0.4-2.0) mmol/L Calcium 8.6 (8.5-10.1) mg/dL Total Bilirubin 0.5 (0.2-1.0) mg/dL AST 7 L (15-37) U/L ALT 24 (16-63) U/L Alkaline Phosphatase 78 (46-116) U/L Troponin I < 0.017 (0.000-0.056) ng/mL C-Reactive Protein < 0.2 (0.0-0.9) mg/dL Total Protein 7.0 (6.4-8.2) g/dL Albumin 3.6 (3.4-5.0) g/dL Globulin 3.4 Albumin/Globulin Ratio 1.1 - Re-Assessments/Exams Free Text/Narrative Re-Assessment/Exam: 11/14/20 EKG reveals NSR with no evidence of myocardial ischemia. Troponin WNL. Given length of symptoms, in the presence of normal cardiac enzyme and EKG, patient has r/o cardiac ischemia as cause for shortness of breath. CXR negative for acute processes; no evidence of infiltrate, edema, or effusion. CBC unremarkable for acute processes; no evidence of infection or anemia. CMP reveals low sodium and high blood glucose. Patient states he has not been regulating his blood sugars very well and notes he has been increasingly thirsty, likely for this reason. Kidney function and liver function appropriate. Patients vital are stable with appropriate O2 saturations on room air. Discussed appropriate immune response to receiving a vaccine as well as importance of regulating blood sugar levels. Patient instructed to follow up with primary care provider, or return to the emergency department, should symptoms not improve. Red flag signs and symptoms which would warrant re evaluation reviewed. Patient verbalized understanding and agreement with the plan of care. Departure - Departure Time of Disposition: 17:54 Disposition: Home, Self-Care 01 Condition: Good Clinical Impression: Dyspnea on exertion, Hyperglycemia due to diabetes mellitus, Hyponatremia - Discharge Information *PRESCRIPTION DRUG MONITORING PROGRAM REVIEWED*: Not Applicable *COPY OF PRESCRIPTION DRUG MONITORING REPORT IN PATIENT SARAH: Not Applicable Instructions: Shortness of Breath, Adult, [id number], Hyponatremia, [id number], Hyperglycemia, [id number] Referrals: PCP,None [Primary Care Provider] - Forms: ED Department Discharge Additional Instructions: 1.) Follow up with your primary care provider regarding today's visit. 2.) Continue to monitor your blood sugars and keep them well regulated. 3.) Avoid excessive water drinking. Sepsis Event Note (ED) - Evaluation Sepsis Screening Result: No Definite Risk
[2020-11-14 16:13] VITALS: BP 114/89; PULSE 124
[2020-11-14 17:22] LABS: ANION GAP 16.7 mEq/L (7-13); CHLORIDE,CL 93 mmol/L (98-107); SODIUM,NA 129 mmol/L (136-145)
--- NOTE | 2020-11-14 17:23 | CR ---
EXAMINATION: Chest 2V SEX: Male AGE: 50 years CLINICAL HISTORY: 50-year-old male experiencing shortness of breath (SOB) 3 days following his second Moderna shot (vaccination). Comparison CXR for "chest pain" from 13 June 2020. Interpretation: Negative. 1. Normal cardiac silhouette (size and configuration). 2. No pulmonary vascular congestion, cephalization of flow, alveolar edema or dependent pleural effusion. 3. No new lung mass or hilar lymphadenopathy. 4. Normal midline tracheal bronchial airway. No pneumothorax or pneumomediastinum. 5. No new alveolar infiltrates or peripheral interstitial "groundglass" lung densities. 6. Intervertebral disc space narrowing mid thoracic (T9-10) spine consistent with disc degeneration and/or herniation.
== END 2020-11-14 18:08 | disposition home or self-care (01) ==
LOC: DL.ED 15:22
DX: R06.02 Shortness of breath (principal); E11.65 Type 2 diabetes mellitus with hyperglycemia; E87.0 Hyperosmolality and hypernatremia; E78.00 Pure hypercholesterolemia, unspecified; Z79.4 Long term (current) use of insulin; Z79.899 Other long term (current) drug therapy; Z79.82 Long term (current) use of aspirin
CPT/HCPCS: 36415; 71046; 80053; 83605; 84484; 85025; 86140; 93005; 99285-25

== ENCOUNTER 2021-03-06 17:01 | Emergency (ER) | payer BC ==
[2021-03-06 17:35] VITALS: BP 114/74; PULSE 113
[2021-03-06] MEDS ORDERED: Lactated Ringers 1,000 ML IV ONE (20:01)
--- NOTE | 2021-03-06 20:02 | EDM.PDOC ---
ED HPI GENERAL MEDICAL PROBLEM - General Chief Complaint: General Stated Complaint: DIZZYNESS, BLURRY SEE STARS. WHEN HE BENDS OVER.. Time Seen by Provider: 03/06/21 19:45 Source of Information: Reports: Patient, RN, RN Notes Reviewed History Limitations: Reports: No Limitations - History of Present Illness INITIAL COMMENTS - FREE TEXT/NARRATIVE: Patient is a 50-year-old male who presents to ER with complaint of dizziness. Patient states when he is crouching at work and begins to rise as when he has the most dizziness. Patient states when he is sitting in a chair and stands up he does not have any dizziness. Orthostatic blood pressures done per nursing, appear to be unimpressive. Patient states he has seen his primary care provider for this in the past, and has also had carotid ultrasounds done. Patient states there was some plaque buildup in the carotids, but not enough to have procedure completed. Patient states he is a diabetic, takes his medications as pre scribed. Patient states he probably does not drink enough water during the day, states he drinks several no sugar monster drinks during the day. Patient states he smokes anywhere from 1 to 2 packs of cigarettes a day. Patient states he has been having these difficulties almost on a daily basis for the past 6 months. Patient did have an appointment to follow-up with his primary care in the clinic tomorrow morning. Patient denies any symptoms at this time, states it is only present when he rises from a crouching position. Admits to some blurred and double vision during these episodes. Denies any numbness or tingling, nausea, vomiting, diarrhea today. States on Saturday he did have some nausea, no vomiting, and some diarrhea. no recent illnesses. Denies any chest pains or shortness of breath. Patient states he has discussed doing a stress test with his primary provider. Onset: Gradual - Related Data Allergies Allergy/AdvReac Type Severity Reaction Status Date / Time No Known Allergies Allergy Verified 03/06/21 18:31 Home Meds: Home Meds metFORMIN [Glucophage] 1,000 mg PO BID 05/27/15 [History] Insulin Aspart [Novolog Flexpen] See Protocol SQ TIDMEALS 04/30/17 [History] Insulin Detemir [Levemir] 40 units SQ BEDTIME 04/30/17 [History] Fenofibrate Nanocrystallized [Fenofibrate] 145 mg PO DAILY 01/04/20 [History] Aspirin [Aspirin EC] 81 mg PO DAILY 07/08/20 [History] Gabapentin [Neurontin] 300 mg PO TID 07/08/20 [History] Multivitamin 1 each PO DAILY 07/08/20 [History] Randolph-3/DHA/Epa/Fish Oil [Randolph 3 500 Softgel] 1,000 mg PO DAILY 07/08/20 [History] atorvaSTATin [Lipitor] 20 mg PO DAILY 07/08/20 [History] Escitalopram [Lexapro] 20 mg PO DAILY 03/06/21 [History] Past Medical History - Past Health History Medical/Surgical History: Denies Medical/Surgical History HEENT History: Reports: Hard of Hearing, Impaired Vision Other HEENT History: has hearing aide Cardiovascular History: Reports: Heart Murmur, High Cholesterol, Other (See Below) Other Cardiovascular History: CHRONIC VENOUS INSUFFICIENCY Respiratory History: Reports: None Gastrointestinal History: Reports: Colon Polyp, Hemorrhoids Genitourinary History: Reports: None Musculoskeletal History: Reports: Other (See Below) Other Musculoskeletal History: Fx rt. hand Neurological History: Reports: None Psychiatric History: Reports: Depression Other Psychiatric History: States he has been depressed since his divorce 4 year ago. Endocrine/Metabolic History: Reports: Diabetes, Type II Hematologic History: Reports: None Immunologic History: Reports: None Oncologic (Cancer) History: Reports: None Dermatologic History: Reports: Other (See Below) Other Dermatologic History: INFECTED CYST RIGHT SCROTUM - Infectious Disease History Infectious Disease History: Reports: Chicken Pox - Past Surgical History HEENT Surgical History: Reports: None Cardiovascular Surgical History: Reports: None Respiratory Surgical History: Reports: None GI Surgical History: Reports: Colonoscopy, Polypectomy Male Surgical History: Reports: None Endocrine Surgical History: Reports: None Neurological Surgical History: Reports: None Musculoskeletal Surgical History: Reports: Other (See Below) Other Musculoskeletal Surgeries/Procedures:: varicose vein stripping. PLATE AND SCREWS IN RIGHT HAND Dermatological Surgical History: Reports: None Social & Family History - Family History Family Medical History: No Pertinent Family History - Tobacco Use Tobacco Use Status *Q: Current Every Day Tobacco User Years of Tobacco use: 35 Packs/Tins Daily: 2 - Caffeine Use Caffeine Use: Reports: Coffee, Energy Drinks Caffeine Use Comment: multiple cups per day - Recreational Drug Use Recreational Drug Use: No - Living Situation & Occupation Living situation: Reports: with Significant Other Occupation: Employed ED ROS GENERAL - Review of Systems Review Of Systems: Comprehensive ROS is negative, except as noted in HPI. ED EXAM, GENERAL - Physical Exam Exam: See Below Exam Limited By: No Limitations General Appearance: Alert, WD/WN, No Apparent Distress Eye Exam: Bilateral Eye: EOMI, Normal Inspection Ears: Normal External Exam, Hearing Grossly Normal Nose: Normal Inspection Throat/Mouth: Normal Inspection, Normal Voice, No Airway Compromise Head: Atraumatic, Normocephalic Neck: Normal Inspection, Supple, Non-Tender, Full Range of Motion Respiratory/Chest: No Respiratory Distress, Lungs Clear, Normal Breath Sounds, N o Accessory Muscle Use, Chest Non-Tender Cardiovascular: Normal Peripheral Pulses, Regular Rate, Rhythm, No Edema, No Gallop, No JVD, No Murmur, No Rub Peripheral Pulses: 2+: Radial (L), Radial (R) GI/Abdominal: Normal Bowel Sounds, Soft, Non-Tender, No Organomegaly, No Distention, No Abnormal Bruit, No Mass, Pelvis Stable (Male) Exam: Deferred Rectal (Males) Exam: Deferred Back Exam: Normal Inspection, Full Range of Motion, NT Extremities: Normal Inspection, Normal Range of Motion, Non-Tender, Normal Capillary Refill, No Pedal Edema Neurological: Alert, Oriented, CN II-XII Intact, Normal Cognition, Normal Gait, Normal Reflexes, No Motor/Sensory Deficits Psychiatric: Normal Affect, Normal Mood Skin Exam: Warm, Dry, Intact, Normal Color, No Rash Lymphatic: No Adenopathy #1 Interpretation EKG Date: 03/06/21 Time: 20:24 Rhythm: NSR Rate (Beats/Min): 78 Andrew: Normal P-Wave: Present QRS: Normal ST-T: Normal QT: Normal Comparison: No Change Course - Vital Signs Last Recorded V/S: Last Vital Signs Temp 98.7 F 03/06/21 17:28 Pulse 113 H 03/06/21 17:28 Resp 20 03/06/21 17:28 BP 114/74 03/06/21 17:28 Pulse Ox 99 03/06/21 17:28 Orthostatic Blood Pressure [ 97/65 Standing] Orthostatic Blood Pressure [ 94/73 Sitting] Orthostatic Blood Pressure [ 111/76 Supine] - Orders/Labs/Meds Orders: Active Orders 24 hr Category Date Time Status EKG Documentation Completion [RC] STAT Care 03/06/21 19:58 Active Labs: Laboratory Tests 03/06/21 03/06/21 03/06/21 Range/Units 18:47 18:47 20:11 WBC 6.7 (5.0-10.0) 10^3/uL RBC 4.33 L (4.6-6.2) 10^6/uL Hgb 12.9 L D (14.0-18.0) g/dL Hct 36.8 L (40.0-54.0) % MCV 85.0 (80-100) fL MCH 29.8 (27.0-34.0) pg MCHC 35.1 H (33.0-35.0) g/dL Plt Count 245 (150-450) 10^3/uL Neut % (Auto) 61.7 (42.2-75.2) % Lymph % (Auto) 28.0 (20.5-50.1) % [place] % (Auto) 8.9 H (2-8) % Eos % (Auto) 1.0 (1.0-3.0) % Baso % (Auto) 0.4 (0.0-1.0) % D-Dimer, Quantitative (0-400) ng/mL Sodium (136-145) mmol/L Potassium (3.5-5.1) mmol/L Chloride (98-107) mmol/L Carbon Dioxide (21-32) mmol/L Anion Gap (7-13) mEq/L BUN (7-18) mg/dL Creatinine (0.70-1.30) mg/dL Est Cr Clr Drug Dosing mL/min Estimated GFR (MDRD) BUN/Creatinine Ratio (No establ ref range) Glucose (70-99) mg/dL Calcium (8.5-10.1) mg/dL Total Bilirubin (0.2-1.0) mg/dL AST (15-37) U/L ALT (16-63) U/L Alkaline Phosphatase (46-116) U/L Troponin I High Sens (<=76) pg/mL C-Reactive Protein (0.0-0.9) mg/dL Total Protein (6.4-8.2) g/dL Albumin (3.4-5.0) g/dL Globulin Albumin/Globulin Ratio Urine Color Yellow (YELLOW) Urine Appearance Slightly cloudy (CLEAR) Urine pH 7.0 (5.0-9.0) Ur Specific [place] 1.020 (1.005-1.030) Urine Protein Negative (NEGATIVE) Urine Glucose (UA) 500 H (NEGATIVE) Urine Ketones Negative (NEGATIVE) Urine Occult Blood Negative (NEGATIVE) Urine Nitrite Negative (NEGATIVE) Urine Bilirubin Negative (NEGATIVE) Urine Urobilinogen 0.2 (0.2-1.0) mg/dL Ur Leukocyte Esterase Negative (NEGATIVE) Urine Opiates Screen Negative (NEGATIVE) Ur Oxycodone Screen Negative (NEGATIVE) Urine Methadone Screen Negative (NEGATIVE) Ur Barbiturates Screen Negative (NEGATIVE) U Tricyclic Antidepress Negative (NEGATIVE) Ur Phencyclidine Scrn Negative (NEGATIVE) Ur Amphetamine Screen Negative (NEGATIVE) U Methamphetamines Scrn Negative (NEGATIVE) Urine MDMA Screen Negative (NEGATIVE) U Benzodiazepines Scrn Negative (NEGATIVE) Urine Cocaine Screen Negative (NEGATIVE) U Marijuana (THC) Screen Negative (NEGATIVE) Ethyl Alcohol (0) mg/dL 03/06/21 03/06/21 Range/Units 20:11 20:11 WBC (5.0-10.0) 10^3/uL RBC (4.6-6.2) 10^6/uL Hgb (14.0-18.0) g/dL Hct (40.0-54.0) % MCV (80-100) fL MCH (27.0-34.0) pg MCHC (33.0-35.0) g/dL Plt Count (150-450) 10^3/uL Neut % (Auto) (42.2-75.2) % Lymph % (Auto) (20.5-50.1) % [place] % (Auto) (2-8) % Eos % (Auto) (1.0-3.0) % Baso % (Auto) (0.0-1.0) % D-Dimer, Quantitative 591 H (0-400) ng/mL Sodium 140 D (136-145) mmol/L Potassium 3.7 (3.5-5.1) mmol/L Chloride 101 (98-107) mmol/L Carbon Dioxide 29 (21-32) mmol/L Anion Gap 13.7 H (7-13) mEq/L BUN 25 H (7-18) mg/dL Creatinine 0.86 (0.70-1.30) mg/dL Est Cr Clr Drug Dosing 108.69 mL/min Estimated GFR (MDRD) > 60 BUN/Creatinine Ratio 29.1 (No establ ref range) Glucose 287 H (70-99) mg/dL Calcium 8.7 (8.5-10.1) mg/dL Total Bilirubin 0.3 (0.2-1.0) mg/dL AST 13 L (15-37) U/L ALT 26 (16-63) U/L Alkaline Phosphatase 56 (46-116) U/L Troponin I High Sens 8 (<=76) pg/mL C-Reactive Protein < 0.2 (0.0-0.9) mg/dL Total Protein 6.3 L (6.4-8.2) g/dL Albumin 3.6 (3.4-5.0) g/dL Globulin 2.7 Albumin/Globulin Ratio 1.3 Urine Color (YELLOW) Urine Appearance (CLEAR) Urine pH (5.0-9.0) Ur Specific [place] (1.005-1.030) Urine Protein (NEGATIVE) Urine Glucose (UA) (NEGATIVE) Urine Ketones (NEGATIVE) Urine Occult Blood (NEGATIVE) Urine Nitrite (NEGATIVE) Urine Bilirubin (NEGATIVE) Urine Urobilinogen (0.2-1.0) mg/dL Ur Leukocyte Esterase (NEGATIVE) Urine Opiates Screen (NEGATIVE) Ur Oxycodone Screen (NEGATIVE) Urine Methadone Screen (NEGATIVE) Ur Barbiturates Screen (NEGATIVE) U Tricyclic Antidepress (NEGATIVE) Ur Phencyclidine Scrn (NEGATIVE) Ur Amphetamine Screen (NEGATIVE) U Methamphetamines Scrn (NEGATIVE) Urine MDMA Screen (NEGATIVE) U Benzodiazepines Scrn (NEGATIVE) Urine Cocaine Screen (NEGATIVE) U Marijuana (THC) Screen (NEGATIVE) Ethyl Alcohol < 3 (0) mg/dL Meds: Medications Discontinued Medications Generic Name Dose Route Start Last Admin Trade Name Freq PRN Reason Stop Dose Admin Lactated Ringer's 1,000 mls @ 500 mls/hr 03/06/21 20:01 03/06/21 20:16 Ringers, Lactated IV 03/06/21 22:00 500 mls/hr .BOLUS ONE Administration Iopamidol 100 ml 03/06/21 21:12 03/06/21 21:44 Iopamidol 755 Mg/Ml 100 Ml Bottle IVPUSH 03/06/21 21:13 64 ml ONETIME ONE Administration - Radiology Interpretation Free Text/Narrative:: CT of head: PROCEDURE INFORMATION: Exam: CT Head Without Contrast Exam date and time: 03/06/2021 8:19 PM Age: 50 years old Clinical indication: Dizziness TECHNIQUE: Imaging protocol: Computed tomography of the head without contrast. Radiation optimization: All CT scans at this facility use at least one of these dose optimization techniques: automated exposure control; mA and/or kV adjustment per patient size (includes targeted exams where dose is matched to clinical indication); or iterative reconstruction. COMPARISON: CT Head wo Cont 02/15/2020 9:04 AM FINDINGS: Brain: No mass effect or midline shift. No abnormal densities are seen intracranially; no sign of acute intracranial hemorrhage or cerebral edema. Cerebral ventricles: No ventriculomegaly. Paranasal sinuses: Visualized sinuses are unremarkable. No fluid levels. Mastoid air cells: Visualized mastoid air cells are well aerated. Bones/joints: Skull base and overlying calvarium are intact. No lytic or osteosclerotic lesions. Soft tissues: Unremarkable. IMPRESSION: 1. No acute intracranial abnormality. 2. No significant interval change when compared to the CT Head wo Cont 02/15/2020 9:04 AM. Thank you for allowing us to participate in the care of your patient. Dictated and Authenticated by: Jovi Mendez MD 03/06/2021 8:48 PM Central Time ([place] & [place]) Chest xray: PROCEDURE INFORMATION: Exam: XR Chest Exam date and time: 03/06/2021 8:15 PM Age: 50 years old Clinical indication: Smoker's cough; Additional info: Smoker/cough/dizziness TECHNIQUE: Imaging protocol: XR of the chest. Views: 2 views. COMPARISON: CR Chest 2V 11/14/2020 4:52 PM FINDINGS: Lungs: Unremarkable. No consolidation. Pleural spaces: Unremarkable. No pleural effusion. No pneumothorax. Heart/Mediastinum: Unremarkable. No cardiomegaly. Bones/joints: Age appropriate. IMPRESSION: No active disease of the chest. No significant change. Thank you for allowing us to participate in the care of your patient. Dictated and Authenticated by: Jovi Mendez MD 03/06/2021 9:00 PM Central Time ([place] & [place]) Chest CT with contrast: PROCEDURE INFORMATION: Exam: CT Chest With Contrast; Diagnostic Exam date and time: 03/06/2021 9:29 PM Age: 50 years old Clinical indication: Cough and other: Elevated d dimer; Smoker's cough TECHNIQUE: Imaging protocol: Diagnostic computed tomography of the chest with contrast. Radiation optimization: All CT scans at this facility use at least one of these dose optimization techniques: automated exposure control; mA and/or kV adjustment per patient size (includes targeted exams where dose is matched to clinical indication); or iterative reconstruction. Contrast material: ISOVUE 370; Contrast volume: 64 ml; Contrast route: INTRAVENOUS (IV); COMPARISON: CR Chest 2V 03/06/2021 8:15 PM FINDINGS: Lungs: No lung consolidation or suspicious masses. Pleural spaces: Unremarkable. No pneumothorax. No pleural effusion. Heart: Normal heart size. No pericardial effusion. Mediastinal space: There are no masses at the thoracic inlet. Aorta: No aortic aneurysm. Lymph nodes: 1.6 cm right paratracheal enlarged lymph node, indeterminate in etiology. Bones/joints: Age appropriate. No acute fracture. No suspicious lytic or osteosclerotic lesions. Soft tissues: Unremarkable. IMPRESSION: 1. No acute cardiopulmonary disease. 2. 1.6 cm right paratracheal enlarged lymph node, indeterminate in etiology. Thank you for allowing us to participate in the care of your patient. Dictated and Authenticated by: Jovi Mendez MD 03/06/2021 9:50 PM Central Time ([place] & [place]) See rad report Departure - Departure Time of Disposition: 21:58 Disposition: Home, Self-Care 01 Condition: Fair Clinical Impression: Dizziness - Discharge Information *PRESCRIPTION DRUG MONITORING PROGRAM REVIEWED*: No *COPY OF PRESCRIPTION DRUG MONITORING REPORT IN PATIENT SARAH: No Instructions: Dizziness, [id number] Forms: ED Department Discharge Additional Instructions: Follow-up in the clinic with your primary care provider Drink plenty of water, cut back on the Monster energy drinks Return to the ER with any worsening of problems Sepsis Event Note (ED) - Evaluation Sepsis Screening Result: No Definite Risk - Focused Exam Vital Signs: Vital Signs Temp Pulse Resp BP Pulse Ox 03/06/21 17:28 98.7 F 113 H 20 114/74 99 - My Orders Last 24 Hours: My Active Orders 03/06/21 19:58 EKG Documentation Completion [RC] STAT - Assessment/Plan Last 24 Hours: My Active Orders 03/06/21 19:58 EKG Documentation Completion [RC] STAT
[2021-03-06 20:11] LABS: AMPHETAMINES,URINE NEGATIVE (NEGATIVE); BARBITURATES,URINE NEGATIVE (NEGATIVE); BENZODIAZEPINE,URINE NEGATIVE (NEGATIVE); MDMA (ECSTASY), URINE NEGATIVE (NEGATIVE); METHADONE,URINE NEGATIVE (NEGATIVE); METHAMPHETAMINES,URINE NEGATIVE (NEGATIVE); OPIATES,URINE NEGATIVE (NEGATIVE); OXYCODONE,URINE NEGATIVE (NEGATIVE); PHENCYCLIDINE,URINE NEGATIVE (NEGATIVE); TCA,URINE NEGATIVE (NEGATIVE)
[2021-03-06 20:39] LABS: ANION GAP 13.7 mEq/L (7-13); CHLORIDE,CL 101 mmol/L (98-107); SODIUM,NA 140 mmol/L (136-145)
--- NOTE | 2021-03-06 20:48 | CT ---
PROCEDURE INFORMATION: Exam: CT Head Without Contrast Exam date and time: 03/06/2021 8:19 PM Age: 50 years old Clinical indication: Dizziness TECHNIQUE: Imaging protocol: Computed tomography of the head without contrast. Radiation optimization: All CT scans at this facility use at least one of these dose optimization techniques: automated exposure control; mA and/or kV adjustment per patient size (includes targeted exams where dose is matched to clinical indication); or iterative reconstruction. COMPARISON: CT Head wo Cont 02/15/2020 9:04 AM FINDINGS: Brain: No mass effect or midline shift. No abnormal densities are seen intracranially; no sign of acute intracranial hemorrhage or cerebral edema. Cerebral ventricles: No ventriculomegaly. Paranasal sinuses: Visualized sinuses are unremarkable. No fluid levels. Mastoid air cells: Visualized mastoid air cells are well aerated. Bones/joints: Skull base and overlying calvarium are intact. No lytic or osteosclerotic lesions. Soft tissues: Unremarkable. IMPRESSION: 1. No acute intracranial abnormality. 2. No significant interval change when compared to the CT Head wo Cont 02/15/2020 9:04 AM.
--- NOTE | 2021-03-06 21:01 | CR ---
PROCEDURE INFORMATION: Exam: XR Chest Exam date and time: 03/06/2021 8:15 PM Age: 50 years old Clinical indication: Smoker's cough; Additional info: Smoker/cough/dizziness TECHNIQUE: Imaging protocol: XR of the chest. Views: 2 views. COMPARISON: CR Chest 2V 11/14/2020 4:52 PM FINDINGS: Lungs: Unremarkable. No consolidation. Pleural spaces: Unremarkable. No pleural effusion. No pneumothorax. Heart/Mediastinum: Unremarkable. No cardiomegaly. Bones/joints: Age appropriate. IMPRESSION: No active disease of the chest. No significant change.
[2021-03-06] MEDS ORDERED: Iopamidol 755 Mg/ML 100 ML Bottle IVPUSH ONE (21:12)
--- NOTE | 2021-03-06 21:51 | CT ---
PROCEDURE INFORMATION: Exam: CT Chest With Contrast; Diagnostic Exam date and time: 03/06/2021 9:29 PM Age: 50 years old Clinical indication: Cough and other: Elevated d dimer; Smoker's cough TECHNIQUE: Imaging protocol: Diagnostic computed tomography of the chest with contrast. Radiation optimization: All CT scans at this facility use at least one of these dose optimization techniques: automated exposure control; mA and/or kV adjustment per patient size (includes targeted exams where dose is matched to clinical indication); or iterative reconstruction. Contrast material: ISOVUE 370; Contrast volume: 64 ml; Contrast route: INTRAVENOUS (IV); COMPARISON: CR Chest 2V 03/06/2021 8:15 PM FINDINGS: Lungs: No lung consolidation or suspicious masses. Pleural spaces: Unremarkable. No pneumothorax. No pleural effusion. Heart: Normal heart size. No pericardial effusion. Mediastinal space: There are no masses at the thoracic inlet. Aorta: No aortic aneurysm. Lymph nodes: 1.6 cm right paratracheal enlarged lymph node, indeterminate in etiology. Bones/joints: Age appropriate. No acute fracture. No suspicious lytic or osteosclerotic lesions. Soft tissues: Unremarkable. IMPRESSION: 1. No acute cardiopulmonary disease. 2. 1.6 cm right paratracheal enlarged lymph node, indeterminate in etiology.
== END 2021-03-06 22:10 | disposition home or self-care (01) ==
LOC: DL.ED 17:01
DX: R42 Dizziness and giddiness (principal); F17.210 Nicotine dependence, cigarettes, uncomplicated; E78.00 Pure hypercholesterolemia, unspecified; E11.9 Type 2 diabetes mellitus without complications; Z79.4 Long term (current) use of insulin; Z79.899 Other long term (current) drug therapy
CPT/HCPCS: 36415; 70450; 71046; 71260; 80053; 80305; 80307; 81003; 84484; 85025; 85379; 86140; 93005; 93010; 99284; J7120; Q9967

== ENCOUNTER 2021-06-11 09:31 | Emergency (ER) | payer BC ==
[2021-06-11 09:58] VITALS: BP 132/96; PULSE 93
[2021-06-11] MEDS ORDERED: Sodium Chloride 0.9% 1,000 ML IV ONE (10:17)
[2021-06-11] MEDS ORDERED: Insulin Regular, Human 100 Units/ML 3 ML Vial IV ONE (10:22)
[2021-06-11] MEDS ORDERED: Glucagon,Human Recombinant 1 MG Vial IM PRN (10:22)
[2021-06-11] MEDS ORDERED: 50% Dextrose in Water 50 ML Syringe IVPUSH PRN (10:22)
[2021-06-11 11:01] LABS: ANION GAP 18.3 mEq/L (7-13); CHLORIDE,CL 96 mmol/L (98-107); SODIUM,NA 134 mmol/L (136-145)
--- NOTE | 2021-06-11 12:27 | EDM.PDOC ---
ED HPI GENERAL MEDICAL PROBLEM - General Chief Complaint: Diabetic Complaint Stated Complaint: DIABETIC NO ENERGY [id number] Time Seen by Provider: 06/11/21 09:55 Source of Information: Reports: Patient History Limitations: Reports: No Limitations - History of Present Illness INITIAL COMMENTS - FREE TEXT/NARRATIVE: ED with c/o feeling tired, poor appetite, Blood sugar high this am. Admits not taking insuin at least for past month. Declines giving reason for not taking. No vomiting or diarrhea. Has not checked sugars for month until this am. - Related Data Allergies Allergy/AdvReac Type Severity Reaction Status Date / Time No Known Allergies Allergy Verified 06/11/21 09:57 Home Meds: Home Meds metFORMIN [Glucophage] 1,000 mg PO BID 05/27/15 [History] Insulin Aspart [Novolog Flexpen] See Protocol SQ TIDMEALS 04/30/17 [History] Insulin Detemir [Levemir] 50 units SQ BEDTIME 04/30/17 [History] Fenofibrate Nanocrystallized [Fenofibrate] 145 mg PO DAILY 01/04/20 [History] Aspirin [Aspirin EC] 81 mg PO DAILY 07/08/20 [History] Gabapentin [Neurontin] 300 mg PO TID 07/08/20 [History] Multivitamin 1 each PO DAILY 07/08/20 [History] [place]-3/DHA/Epa/Fish Oil [[place] 3 500 Softgel] 1,000 mg PO DAILY 07/08/20 [History] atorvaSTATin [Lipitor] 20 mg PO DAILY 07/08/20 [History] Escitalopram [Lexapro] 20 mg PO DAILY 03/06/21 [History] Meclizine HCl 25 mg PO BID 06/11/21 [History] Past Medical History - Past Health History Medical/Surgical History: Denies Medical/Surgical History HEENT History: Reports: Hard of Hearing, Impaired Vision Other HEENT History: has bilateral hearing aide Cardiovascular History: Reports: Heart Murmur, High Cholesterol, Other (See Below) Other Cardiovascular History: CHRONIC VENOUS INSUFFICIENCY Respiratory History: Reports: None Gastrointestinal History: Reports: Colon Polyp, Hemorrhoids Genitourinary History: Reports: None Musculoskeletal History: Reports: Other (See Below) Other Musculoskeletal History: Fx rt. hand Neurological History: Reports: None Psychiatric History: Reports: Depression Other Psychiatric History: States he has been depressed since his divorce 4 year ago. Endocrine/Metabolic History: Reports: Diabetes, Type II Hematologic History: Reports: None Immunologic History: Reports: None Oncologic (Cancer) History: Reports: None Dermatologic History: Reports: Other (See Below) Other Dermatologic History: INFECTED CYST RIGHT SCROTUM - Infectious Disease History Infectious Disease History: Reports: Chicken Pox - Past Surgical History HEENT Surgical History: Reports: None Cardiovascular Surgical History: Reports: None Respiratory Surgical History: Reports: None GI Surgical History: Reports: Colonoscopy, Polypectomy Male Surgical History: Reports: None Endocrine Surgical History: Reports: None Neurological Surgical History: Reports: None Musculoskeletal Surgical History: Reports: Other (See Below) Other Musculoskeletal Surgeries/Procedures:: varicose vein stripping. PLATE AND SCREWS IN RIGHT HAND Dermatological Surgical History: Reports: None Social & Family History - Family History Family Medical History: No Pertinent Family History - Tobacco Use Tobacco Use Status *Q: Current Every Day Tobacco User Years of Tobacco use: 6 Packs/Tins Daily: 2 - Caffeine Use Caffeine Use: Reports: Coffee Caffeine Use Comment: multiple cups per day - Recreational Drug Use Recreational Drug Use: No - Living Situation & Occupation Living situation: Reports: with Significant Other Occupation: Employed ED ROS GENERAL - Review of Systems Review Of Systems: Comprehensive ROS is negative, except as noted in HPI. ED EXAM GENERAL NO PERIP PULSE - Physical Exam Exam: See Below Exam Limited By: No Limitations General Appearance: Alert, No Apparent Distress Eye Exam: Bilateral Eye: EOMI Ears: Normal External Exam, Hearing Grossly Normal Nose: Normal Inspection, Normal Mucosa Throat/Mouth: Normal Inspection Head: Atraumatic, Normocephalic Neck: Normal Inspection Respiratory/Chest: No Respiratory Distress, Lungs Clear, Normal Breath Sounds Cardiovascular: Normal Peripheral Pulses, Regular Rate, Rhythm GI/Abdominal: Normal Bowel Sounds, Soft, Non-Tender Back Exam: Normal Inspection Neurological: Alert, Oriented, Normal Cognition Psychiatric: Flat Affect Skin Exam: Warm, Dry, Intact, Normal Color Course - Vital Signs Last Recorded V/S: Last Vital Signs Temp 98.4 F 06/11/21 09:53 Pulse 93 06/11/21 09:53 Resp 18 06/11/21 09:53 BP 132/96 H 06/11/21 09:53 Pulse Ox 98 06/11/21 09:53 - Orders/Labs/Meds Labs: Laboratory Tests 06/11/21 06/11/21 06/11/21 Range/Units 09:39 09:48 10:21 WBC 5.8 (5.0-10.0) 10^3/uL RBC 4.43 L (4.6-6.2) 10^6/uL Hgb 13.4 L (14.0-18.0) g/dL Hct 39.2 L (40.0-54.0) % MCV 88.5 D (80-100) fL MCH 30.2 (27.0-34.0) pg MCHC 34.2 (33.0-35.0) g/dL Plt Count 191 (150-450) 10^3/uL Neut % (Auto) 74.6 (42.2-75.2) % Lymph % (Auto) 14.6 L (20.5-50.1) % [place] % (Auto) 6.0 (2-8) % Eos % (Auto) 3.9 H (1.0-3.0) % Baso % (Auto) 0.9 (0.0-1.0) % Sodium (136-145) mmol/L Potassium (3.5-5.1) mmol/L Chloride (98-107) mmol/L Carbon Dioxide (21-32) mmol/L Anion Gap (7-13) mEq/L BUN (7-18) mg/dL Creatinine (0.70-1.30) mg/dL Est Cr Clr Drug Dosing mL/min Estimated GFR (MDRD) BUN/Creatinine Ratio (No establ ref range) Glucose (70-99) mg/dL POC Glucose 434 H* (70-99) mg/dL Lactic Acid (0.4-2.0) mmol/L Calcium (8.5-10.1) mg/dL Total Bilirubin (0.2-1.0) mg/dL AST (15-37) U/L ALT (16-63) U/L Alkaline Phosphatase (46-116) U/L Total Protein (6.4-8.2) g/dL Albumin (3.4-5.0) g/dL Globulin Albumin/Globulin Ratio Urine Color Yellow (YELLOW) Urine Appearance Clear (CLEAR) Urine pH 5.5 (5.0-9.0) Ur Specific [place] 1.020 (1.005-1.030) Urine Protein Negative (NEGATIVE) Urine Glucose (UA) 500 H (NEGATIVE) Urine Ketones 80 H (NEGATIVE) Urine Occult Blood Negative (NEGATIVE) Urine Nitrite Negative (NEGATIVE) Urine Bilirubin Negative (NEGATIVE) Urine Urobilinogen 0.2 (0.2-1.0) mg/dL Ur Leukocyte Esterase Negative (NEGATIVE) 06/11/21 06/11/21 06/11/21 Range/Units 10:21 10:21 11:37 WBC (5.0-10.0) 10^3/uL RBC (4.6-6.2) 10^6/uL Hgb (14.0-18.0) g/dL Hct (40.0-54.0) % MCV (80-100) fL MCH (27.0-34.0) pg MCHC (33.0-35.0) g/dL Plt Count (150-450) 10^3/uL Neut % (Auto) (42.2-75.2) % Lymph % (Auto) (20.5-50.1) % [place] % (Auto) (2-8) % Eos % (Auto) (1.0-3.0) % Baso % (Auto) (0.0-1.0) % Sodium 134 L (136-145) mmol/L Potassium 4.3 (3.5-5.1) mmol/L Chloride 96 L (98-107) mmol/L Carbon Dioxide 24 (21-32) mmol/L Anion Gap 18.3 H (7-13) mEq/L BUN 13 (7-18) mg/dL Creatinine 0.81 (0.70-1.30) mg/dL Est Cr Clr Drug Dosing 107.72 mL/min Estimated GFR (MDRD) > 60 BUN/Creatinine Ratio 16.0 (No establ ref range) Glucose 451 H* (70-99) mg/dL POC Glucose 306 H (70-99) mg/dL Lactic Acid 0.6 (0.4-2.0) mmol/L Calcium 8.5 (8.5-10.1) mg/dL Total Bilirubin 0.4 (0.2-1.0) mg/dL AST 9 L (15-37) U/L ALT 17 (16-63) U/L Alkaline Phosphatase 81 (46-116) U/L Total Protein 6.2 L (6.4-8.2) g/dL Albumin 3.4 (3.4-5.0) g/dL Globulin 2.8 Albumin/Globulin Ratio 1.2 Urine Color (YELLOW) Urine Appearance (CLEAR) Urine pH (5.0-9.0) Ur Specific [place] (1.005-1.030) Urine Protein (NEGATIVE) Urine Glucose (UA) (NEGATIVE) Urine Ketones (NEGATIVE) Urine Occult Blood (NEGATIVE) Urine Nitrite (NEGATIVE) Urine Bilirubin (NEGATIVE) Urine Urobilinogen (0.2-1.0) mg/dL Ur Leukocyte Esterase (NEGATIVE) 06/11/21 Range/Units 12:17 WBC (5.0-10.0) 10^3/uL RBC (4.6-6.2) 10^6/uL Hgb (14.0-18.0) g/dL Hct (40.0-54.0) % MCV (80-100) fL MCH (27.0-34.0) pg MCHC (33.0-35.0) g/dL Plt Count (150-450) 10^3/uL Neut % (Auto) (42.2-75.2) % Lymph % (Auto) (20.5-50.1) % [place] % (Auto) (2-8) % Eos % (Auto) (1.0-3.0) % Baso % (Auto) (0.0-1.0) % Sodium (136-145) mmol/L Potassium (3.5-5.1) mmol/L Chloride (98-107) mmol/L Carbon Dioxide (21-32) mmol/L Anion Gap (7-13) mEq/L BUN (7-18) mg/dL Creatinine (0.70-1.30) mg/dL Est Cr Clr Drug Dosing mL/min Estimated GFR (MDRD) BUN/Creatinine Ratio (No establ ref range) Glucose (70-99) mg/dL POC Glucose 295 H (70-99) mg/dL Lactic Acid (0.4-2.0) mmol/L Calcium (8.5-10.1) mg/dL Total Bilirubin (0.2-1.0) mg/dL AST (15-37) U/L ALT (16-63) U/L Alkaline Phosphatase (46-116) U/L Total Protein (6.4-8.2) g/dL Albumin (3.4-5.0) g/dL Globulin Albumin/Globulin Ratio Urine Color (YELLOW) Urine Appearance (CLEAR) Urine pH (5.0-9.0) Ur Specific [place] (1.005-1.030) Urine Protein (NEGATIVE) Urine Glucose (UA) (NEGATIVE) Urine Ketones (NEGATIVE) Urine Occult Blood (NEGATIVE) Urine Nitrite (NEGATIVE) Urine Bilirubin (NEGATIVE) Urine Urobilinogen (0.2-1.0) mg/dL Ur Leukocyte Esterase (NEGATIVE) Meds: Medications Discontinued Medications Generic Name Dose Route Start Last Admin Trade Name Freq PRN Reason Stop Dose Admin Dextrose/Water 50 ml 06/11/21 10:22 50% Dextrose In Water 50 Ml Syringe IVPUSH Q15M PRN Hypoglycemia Glucagon 1 mg 06/11/21 10:22 Glucagon,Human Recombinant 1 Mg Vial IM Q15M PRN Hypoglycemia Sodium Chloride 1,000 mls @ 999 mls/hr 06/11/21 10:17 06/11/21 10:33 Normal Saline IV 06/11/21 11:17 999 mls/hr .BOLUS ONE Administration Insulin Human Regular 10 unit 06/11/21 10:22 06/11/21 10:35 Insulin Regular, Human 100 Units/Ml 3 Ml Vial IV 06/11/21 10:23 10 units ONETIME ONE Administration Protocol Departure - Departure Time of Disposition: 12:25 Disposition: Home, Self-Care 01 Condition: Good Clinical Impression: Hyperglycemia, Non-adherence to medical treatment, Hyperglycemia due to type 2 diabetes mellitus - Discharge Information *PRESCRIPTION DRUG MONITORING PROGRAM REVIEWED*: No *COPY OF PRESCRIPTION DRUG MONITORING REPORT IN PATIENT SARAH: No Instructions: Hyperglycemia, [id number] Referrals: Bebo Agosto PA-C [Primary Care Provider] - Forms: ED Department Discharge Additional Instructions: Take home medications as prescribed Resume home insulin monitor blood sugars 3 times daily and as needed Sliding scale per home routine Clinic follow up this week Contact [facility] regarding depression Call [phone] if having suicidal thought. Sepsis Event Note (ED) - Evaluation Sepsis Screening Result: No Definite Risk
== END 2021-06-11 13:00 | disposition home or self-care (01) ==
LOC: DL.ED 09:31
DX: E11.65 Type 2 diabetes mellitus with hyperglycemia (principal); E78.00 Pure hypercholesterolemia, unspecified; Z79.82 Long term (current) use of aspirin; Z79.4 Long term (current) use of insulin; Z79.899 Other long term (current) drug therapy; Z72.0 Tobacco use; Z91.19 Patient's noncompliance with other medical treatment and regimen
CPT/HCPCS: 36415; 80053; 81003; 82947; 83605; 85025; 87040; 99284; J1815; J7030

== ENCOUNTER 2021-06-15 16:33 | Emergency (ER) | payer BC ==
[2021-06-15 19:57] VITALS: BP 125/90; PULSE 93
== END 2021-06-15 20:38 | disposition left against medical advice (07) ==
LOC: DL.ED 16:33
DX: M79.606 Pain in leg, unspecified (principal); Z53.21 Procedure and treatment not carried out due to patient leaving prior to being seen by health care provider

== ENCOUNTER 2021-06-22 13:26 | Emergency (ER) | payer BC ==
[2021-06-22 14:52] VITALS: BP 127/88; PULSE 97
--- NOTE | 2021-06-22 15:46 | CR ---
EXAMINATION: Ankle Min 3V Rt SEX: Male AGE: 51 years CLINICAL HISTORY: 51-year-old male emergency department with Rt ankle pain/injury. INTERPRETATION: Severe sprain. 1. Asymmetric pronounced soft tissue swelling over the lateral malleolus and large ankle joint effusion. 2. No underlying fracture or disruption of the tibiotalar mortise joint symmetry i.e. no right ankle dislocation. 3. Small bone spur off the tip of the medial malleolus. No hindfoot fracture. 4. Small heel spur at the insertion of the Achilles tendon on the os calcis posteriorly. 5. No foreign bodies.
--- NOTE | 2021-06-22 16:03 | EDM.PDOC ---
ED HPI GENERAL MEDICAL PROBLEM - General Chief Complaint: Lower Extremity Injury/Pain Stated Complaint: INJURED ANKLE Time Seen by Provider: 06/22/21 15:57 Source of Information: Reports: Patient History Limitations: Reports: No Limitations - History of Present Illness INITIAL COMMENTS - FREE TEXT/NARRATIVE: 51 y/o M c/o R ankle ain after dropping a tile bundle on his R ankle this afternoon. Pt has been weight bearing since the injury. Hx of diabetes type II, and DVTs, is on blood thinners. He states when the tile bundle fell it scraped up the lateral portion of his lower leg. Denies LOC, drugs, etoh. Right Ankle Pain Score (Numeric/FACES): 10 - Related Data Allergies Allergy/AdvReac Type Severity Reaction Status Date / Time No Known Allergies Allergy Verified 06/22/21 14:52 Home Meds: Home Meds metFORMIN [Glucophage] 1,000 mg PO BID 05/27/15 [History] Insulin Aspart [Novolog Flexpen] See Protocol SQ TIDMEALS 04/30/17 [History] Insulin Detemir [Levemir] 48 units SQ BEDTIME 04/30/17 [History] Fenofibrate Nanocrystallized [Fenofibrate] 145 mg PO DAILY 01/04/20 [History] Aspirin [Aspirin EC] 81 mg PO DAILY 07/08/20 [History] Gabapentin [Neurontin] 300 mg PO TID 07/08/20 [History] Escitalopram [Lexapro] 20 mg PO DAILY 03/06/21 [History] Meclizine HCl 25 mg PO BID 06/11/21 [History] Past Medical History - Past Health History Medical/Surgical History: Denies Medical/Surgical History HEENT History: Reports: Hard of Hearing, Impaired Vision Other HEENT History: has bilateral hearing aide Cardiovascular History: Reports: Blood Clots/VTE/DVT, Heart Murmur, High Cholesterol, Other (See Below) Other Cardiovascular History: CHRONIC VENOUS INSUFFICIENCY, blood clot in left leg 06/22/2021 patient states Respiratory History: Reports: None Gastrointestinal History: Reports: Colon Polyp, Hemorrhoids Genitourinary History: Reports: None Musculoskeletal History: Reports: Other (See Below) Other Musculoskeletal History: Fx rt. hand Neurological History: Reports: None Psychiatric History: Reports: Depression Other Psychiatric History: States he has been depressed since his divorce 4 year ago. Endocrine/Metabolic History: Reports: Diabetes, Type II Hematologic History: Reports: None Immunologic History: Reports: None Oncologic (Cancer) History: Reports: None Dermatologic History: Reports: Other (See Below) Other Dermatologic History: INFECTED CYST RIGHT SCROTUM - Infectious Disease History Infectious Disease History: Reports: Chicken Pox - Past Surgical History Head Surgeries/Procedures: Reports: None HEENT Surgical History: Reports: None Cardiovascular Surgical History: Reports: None Respiratory Surgical History: Reports: None GI Surgical History: Reports: Colonoscopy, Polypectomy Male Surgical History: Reports: None Endocrine Surgical History: Reports: None Neurological Surgical History: Reports: None Musculoskeletal Surgical History: Reports: Other (See Below) Other Musculoskeletal Surgeries/Procedures:: varicose vein stripping. PLATE AND SCREWS IN RIGHT HAND Dermatological Surgical History: Reports: None Social & Family History - Family History Family Medical History: No Pertinent Family History - Tobacco Use Tobacco Use Status *Q: Current Every Day Tobacco User Years of Tobacco use: 30 Packs/Tins Daily: 1 - Caffeine Use Caffeine Use: Reports: Coffee Caffeine Use Comment: multiple cups per day - Recreational Drug Use Recreational Drug Use: No - Living Situation & Occupation Living situation: Reports: with Significant Other Occupation: Employed Review of Systems - Review of Systems Review Of Systems: Comprehensive ROS is negative, except as noted in HPI. ED EXAM, GENERAL - Physical Exam Exam: See Below General Appearance: Alert, No Apparent Distress Respiratory/Chest: No Respiratory Distress, Lungs Clear, Normal Breath Sounds, No Accessory Muscle Use, Chest Non-Tender Cardiovascular: Normal Peripheral Pulses, Regular Rate, Rhythm, No Edema, No Gallop, No JVD, No Murmur, No Rub GI/Abdominal: Soft, Non-Tender Back Exam: Normal Inspection, Full Range of Motion Extremities: Other (R lower leg has superficial abrasions to the lateral lower leg. Ankle swollen with no angulation. Pedal pulses intact. ) Psychiatric: Normal Affect, Normal Mood Skin Exam: Warm (except previously mentioned ankle injury), Dry, Intact, Normal Color, No Rash Course - Vital Signs Last Recorded V/S: Last Vital Signs Temp 98.6 F 06/22/21 14:51 Pulse 97 06/22/21 14:51 Resp 18 06/22/21 14:51 BP 127/88 06/22/21 14:51 Pulse Ox 95 06/22/21 14:51 - Re-Assessments/Exams Free Text/Narrative Re-Assessment/Exam: 06/22/21 16:00 I explained the xray and exam results with the pt and explained there were no acute fractures. I informed him to ice his ankle and use tylenol and Ibuprofen for pain. Departure - Departure Time of Disposition: 16:03 Disposition: Home, Self-Care 01 Condition: Good Clinical Impression: Ankle injury Qualifiers: Encounter type: initial encounter Laterality: right Qualified Code(s): S99.911A - Unspecified injury of right ankle, initial encounter - Discharge Information *PRESCRIPTION DRUG MONITORING PROGRAM REVIEWED*: Not Applicable *COPY OF PRESCRIPTION DRUG MONITORING REPORT IN PATIENT SARAH: Not Applicable Additional Instructions: Ice your ankle. Use tylenol and Ibuprofen for pain as needed. If your symptoms do not improve in 7-10 days follow u with your primary care facility or return to the ER. Sepsis Event Note (ED) - Evaluation Sepsis Screening Result: No Definite Risk - Focused Exam Vital Signs: Vital Signs Temp Pulse Resp BP Pulse Ox 06/22/21 14:51 98.6 F 97 18 127/88 95
== END 2021-06-22 16:19 | disposition home or self-care (01) ==
LOC: DL.ED 13:26
DX: S99.911A Unspecified injury of right ankle, initial encounter (principal); E78.00 Pure hypercholesterolemia, unspecified; E11.9 Type 2 diabetes mellitus without complications; Z79.82 Long term (current) use of aspirin; Z79.4 Long term (current) use of insulin; Z72.0 Tobacco use; W20.8XXA Other cause of strike by thrown, projected or falling object, initial encounter
CPT/HCPCS: 73610-RT; 99283-25

== ENCOUNTER 2021-07-18 11:46 | Emergency (ER) | payer BC ==
[2021-07-18 12:10] VITALS: BP 111/80; PULSE 105
== END 2021-07-18 13:08 | disposition home or self-care (01) ==
LOC: DL.ED 11:46
DX: T33.522A Superficial frostbite of left hand, initial encounter (principal); T33.521A Superficial frostbite of right hand, initial encounter; E11.9 Type 2 diabetes mellitus without complications; Z72.0 Tobacco use; Z79.4 Long term (current) use of insulin; Z79.82 Long term (current) use of aspirin; Z79.899 Other long term (current) drug therapy; X31.XXXA Exposure to excessive natural cold, initial encounter
CPT/HCPCS: 99282; 99283

== ENCOUNTER 2021-07-30 10:51 | Emergency (ER) | payer BC ==
[2021-07-30 11:17] VITALS: PULSE 92
[2021-07-30 11:26] VITALS: BP 134/90
--- NOTE | 2021-07-30 13:18 | CR ---
PROCEDURE INFORMATION: Exam: XR Right Hand Exam date and time: 07/30/2021 1:02 PM Age: 51 years old Clinical indication: Pain; Finger(s); Bilateral; Additional info: Herrera bite multiple fingers b/l TECHNIQUE: Imaging protocol: XR Right hand. Views: 3 or more views. COMPARISON: CR Fingers Second Digit Lt F1 01/30/2017 4:14 PM FINDINGS: Bones/joints: Multiple views of the right hand demonstrate no evidence for fracture. There is no focal osteolysis to suggest definite thermal injury. The orthopedic plate and screws are present involving the 4th metacarpal compatible with previously treated fracture. No acute fractures are identified. Soft tissues: Normal. IMPRESSION: No evidence for significant thermal injury to the osseous anatomy. PROCEDURE INFORMATION: Exam: XR Left Hand Exam date and time: 07/30/2021 1:02 PM Age: 51 years old Clinical indication: Pain; Finger(s); Bilateral; Additional info: Herrera bite multiple fingers b/l TECHNIQUE: Imaging protocol: XR Left hand. Views: 3 or more views. COMPARISON: CR Fingers Second Digit Lt F1 01/30/2017 4:14 PM FINDINGS: Bones/joints: Multiple views of the left hand demonstrate mild degenerative change within the interphalangeal joints. Alignment is anatomic. No fractures are identified. There is no focal osteolysis at the tip of the fingers to suggest definite thermal/frostbite injury. Soft tissues: Normal. IMPRESSION: Mild degenerative change. No evidence for thermal injury to the osseous anatomy at this time.
--- NOTE | 2021-07-30 13:36 | EDM.PDOC ---
"Scribed by Bertha Camargo 07/30/21 [id number] for Victorina Dan MD ED HPI GENERAL MEDICAL PROBLEM - General Chief Complaint: Wound Recheck Stated Complaint: BLACK SOUSA BITTEN FINGERS Time Seen by Provider: 07/30/21 12:29 Source of Information: Reports: Patient, Old Records, RN, RN Notes Reviewed History Limitations: Reports: No Limitations - History of Present Illness INITIAL COMMENTS - FREE TEXT/NARRATIVE: Patient presents to ED by POV to check fingers that he got sousa bitten a couple of weeks ago. States his friend told him he should have xrays to see if gas has gotten into the bone and causing gangrene. Denies pain. Fingers are left ring finger and right thumb, ring finger and pinky, does have some healing areas to the fingers. Onset: Gradual Duration: Constant Location: Reports: Upper Extremity, Left, Upper Extremity, Right Severity: Moderate Improves with: Reports: None Worsens with: Reports: None Associated Symptoms: Reports: No Other Symptoms - Related Data Allergies Allergy/AdvReac Type Severity Reaction Status Date / Time No Known Allergies Allergy Verified 07/30/21 11:17 Home Meds: Home Meds metFORMIN [Glucophage] 1,000 mg PO BID 05/27/15 [History] Insulin Aspart [Novolog Flexpen] See Protocol SQ TIDMEALS 04/30/17 [History] Insulin Detemir [Levemir] 48 units SQ BEDTIME 04/30/17 [History] Fenofibrate Nanocrystallized [Fenofibrate] 145 mg PO DAILY 01/04/20 [History] Aspirin [Aspirin EC] 81 mg PO DAILY 07/08/20 [History] Gabapentin [Neurontin] 300 mg PO TID 07/08/20 [History] Escitalopram [Lexapro] 20 mg PO DAILY 03/06/21 [History] Past Medical History - Past Health History Medical/Surgical History: Denies Medical/Surgical History HEENT History: Reports: Hard of Hearing, Impaired Vision Other HEENT History: has bilateral hearing aide Cardiovascular History: Reports: Blood Clots/VTE/DVT, Heart Murmur, High Cholesterol, Other (See Below) Other Cardiovascular History: CHRONIC VENOUS INSUFFICIENCY, blood clot in left leg 06/22/2021 patient states Respiratory History: Reports: None Gastrointestinal History: Reports: Colon Polyp, Hemorrhoids Genitourinary History: Reports: None Musculoskeletal History: Reports: Other (See Below) Other Musculoskeletal History: Fx rt. hand Neurological History: Reports: None Psychiatric History: Reports: Depression Other Psychiatric History: States he has been depressed since his divorce 4 year ago. Endocrine/Metabolic History: Reports: Diabetes, Type II Hematologic History: Reports: None Immunologic History: Reports: None Oncologic (Cancer) History: Reports: None Dermatologic History: Reports: Other (See Below) Other Dermatologic History: INFECTED CYST RIGHT SCROTUM - Infectious Disease History Infectious Disease History: Reports: Chicken Pox - Past Surgical History Head Surgeries/Procedures: Reports: None HEENT Surgical History: Reports: None Cardiovascular Surgical History: Reports: None Respiratory Surgical History: Reports: None GI Surgical History: Reports: Colonoscopy, Polypectomy Male Surgical History: Reports: None Endocrine Surgical History: Reports: None Neurological Surgical History: Reports: None Musculoskeletal Surgical History: Reports: Other (See Below) Other Musculoskeletal Surgeries/Procedures:: varicose vein stripping. PLATE AND SCREWS IN RIGHT HAND Dermatological Surgical History: Reports: None Social & Family History - Family History Family Medical History: No Pertinent Family History - Tobacco Use Tobacco Use Status *Q: Current Every Day Tobacco User Years of Tobacco use: 15 Packs/Tins Daily: 0.5 Second Hand Smoke Exposure: No - Caffeine Use Caffeine Use: Reports: Coffee Caffeine Use Comment: multiple cups per day - Recreational Drug Use Recreational Drug Use: No - Living Situation & Occupation Living situation: Reports: with Significant Other Occupation: Employed ED ROS GENERAL - Review of Systems Review Of Systems: Comprehensive ROS is negative, except as noted in HPI. ED EXAM, SKIN/RASH Exam: See Below Exam Limited By: No Limitations General Appearance: Alert, WD/WN, No Apparent Distress Throat/Mouth: Normal Voice Head: Atraumatic, Normocephalic Respiratory/Chest: No Respiratory Distress Cardiovascular: Normal Peripheral Pulses Peripheral Pulses: 3+: Radial (L), Radial (R) Extremities: Normal Range of Motion, Other (Left 4th finger pad, Right thumb, Rt 4th & 5th distal finger pads are with thick clear cold thermal damaged skin, with some dark-blackish discoloration of the Rt thumb pad. All finger have sensation to firm touch. No erythema, purulent bulla, or significant soft tissue swelling.) Neurological: Alert, Oriented, No Motor/Sensory Deficits Psychiatric: Normal Mood Skin: Warm, Dry Course - Vital Signs Last Recorded V/S: Last Vital Signs Temp 98.1 F 07/30/21 11:12 Pulse 92 07/30/21 11:12 Resp 16 07/30/21 11:12 BP 134/90 07/30/21 11:25 Pulse Ox 97 07/30/21 11:12 - Radiology Interpretation Free Text/Narrative:: [facility] [place] [facility] Final Radiology Report Call: [phone] assistance Online chat: [email or web address] Name: EYAD BROWN Age: 51Years M Date: 07/30/2021 SSN: -- : [id number] Study: CR HAND COMP MIN 3V BI Requesting Physician: VICTORINA DAN Images: 3 Addl Studies: [id number] - XR HAND COMPLETE MIN OF 3 VIEWS (1) Provided Clinical History: Sousa bite multiple fingers B/L Contrast: Contrast Medium: Contrast Amount: Contrast Method: Page 1 of 2 PROCEDURE INFORMATION: Exam: XR Right Hand Exam date and time: 07/30/2021 1:02 PM Age: 51 years old Clinical indication: Pain; Finger(s); Bilateral; Additional info: Sousa bite multiple fingers b/l TECHNIQUE: Imaging protocol: XR Right hand. Views: 3 or more views. COMPARISON: CR Fingers Second Digit Lt F1 01/30/2017 4:14 PM FINDINGS: Bones/joints: Multiple views of the right hand demonstrate no evidence for fracture. There is no focal osteolysis to suggest definite thermal injury. The orthopedic plate and screws are present involving the 4th metacarpal compatible with previously treated fracture. No acute fractures are identified. Soft tissues: Normal. IMPRESSION: No evidence for significant thermal injury to the osseous anatomy. PROCEDURE INFORMATION: Exam: XR Left Hand Exam date and time: 07/30/2021 1:02 PM Age: 51 years old Clinical indication: Pain; Finger(s); Bilateral; Additional info: Sousa bite multiple fingers b/l TECHNIQUE: EYAD BROWN | Final Radiology Report CONFIDENTIALITY STATEMENT This report is intended only for use by the referring physician, and only in accordance with law. If you received this in error, call [phone]. Page 2 of 2 Imaging protocol: XR Left hand. Views: 3 or more views. COMPARISON: CR Fingers Second Digit Lt F1 01/30/2017 4:14 PM FINDINGS: Bones/joints: Multiple views of the left hand demonstrate mild degenerative change within the interphalangeal joints. Alignment is anatomic. No fractures are identified. There is no focal osteolysis at the tip of the fingers to suggest definite thermal/frostbite injury. Soft tissues: Normal. IMPRESSION: Mild degenerative change. No evidence for thermal injury to the osseous anatomy at this time. Thank you for allowing us to participate in the care of your patient. Dictated and Authenticated by: Kris Hinojosa MD 07/30/2021 1:17 PM Central Time ([place] & [place]) Departure - Departure Time of Disposition: 13:28 Disposition: Home, Self-Care 01 Condition: Fair Clinical Impression: Frostbite with tissue necrosis of left finger(s), subsequent encounter, Frostbite with tissue necrosis of right finger(s), subsequent encounter - Discharge Information *PRESCRIPTION DRUG MONITORING PROGRAM REVIEWED*: Not Applicable *COPY OF PRESCRIPTION DRUG MONITORING REPORT IN PATIENT SARAH: Not Applicable Instructions: Frostbite, [id number] Forms: ED Department Discharge Additional Instructions: Follow up in clinic this week for recheck and referral to wound care or hand specialist if needed. Sepsis Event Note (ED) - Evaluation Sepsis Screening Result: No Definite Risk - Focused Exam Vital Signs: Vital Signs Temp Pulse Resp BP Pulse Ox 07/30/21 11:25 134/90 07/30/21 11:12 98.1 F 92 16 146/102 H 97 I have read and agree with the documentation that has been completed regarding this visit. By signing this record, I attest that the documentation was completed in my physical presence and is an accurate record of the encounter."
== END 2021-07-30 13:56 | disposition home or self-care (01) ==
LOC: DL.ED 10:51
DX: T33.532A Superficial frostbite of left finger(s), initial encounter (principal); T33.531A Superficial frostbite of right finger(s), initial encounter; E78.00 Pure hypercholesterolemia, unspecified; E11.9 Type 2 diabetes mellitus without complications; Z79.82 Long term (current) use of aspirin; Z79.4 Long term (current) use of insulin; Z72.0 Tobacco use; X31.XXXA Exposure to excessive natural cold, initial encounter
CPT/HCPCS: 73130-50; 99283

== ENCOUNTER 2022-08-11 17:54 | Emergency (ER) | payer BC ==
[2022-08-11 18:09] VITALS: BP 117/78; PULSE 108
[2022-08-11] MEDS ORDERED: Sodium Chloride 0.9% 10 ML Syringe FLUSH PRN (18:18)
[2022-08-11] MEDS ORDERED: Sodium Chloride 0.9% 1,000 ML IV ONE (18:19)
[2022-08-11] MEDS ORDERED: Ketorolac 30 MG/ML SDV IVPUSH ONE (18:38)
[2022-08-11 18:57] LABS: ANION GAP 11.8 mEq/L (7-13)
[2022-08-11] MEDS ORDERED: 50% Dextrose in Water 50 ML Syringe IVPUSH PRN (19:25)
[2022-08-11] MEDS ORDERED: Insulin Regular, Human 100 Units/ML 3 ML Vial IV ONE (19:25)
[2022-08-11] MEDS ORDERED: Glucagon,Human Recombinant 1 MG Vial IM PRN (19:25)
== END 2022-08-11 20:17 | disposition home or self-care (01) ==
LOC: DL.ED 17:54
DX: R51.9 Headache, unspecified (principal); E11.9 Type 2 diabetes mellitus without complications; Z79.84 Long term (current) use of oral hypoglycemic drugs; Z79.82 Long term (current) use of aspirin
CPT/HCPCS: 36415; 70450; 80053; 82010; 82947; 85025; 85651; 86140; 96374; 99284; J1815; J1885; J7030

== ENCOUNTER 2022-09-16 21:33 | Emergency (ER) | payer BC ==
[2022-09-16] MEDS ORDERED: Sodium Chloride 0.9% 1,000 ML IV ONE (22:16)
[2022-09-16 22:40] LABS: ANION GAP 13.4 mEq/L (7-13); CHLORIDE,CL 99 mmol/L (98-107); SODIUM,NA 134 mmol/L (136-145)
[2022-09-16 22:46] LABS: ACETAMINOPHEN 0 ug/mL (10-30 (Therapeutic)); ESTIMATED GFR 86 mL/min (>=60)
[2022-09-16 22:56] LABS: AMPHETAMINES,URINE NEGATIVE (NEGATIVE); BARBITURATES,URINE NEGATIVE (NEGATIVE); BENZODIAZEPINE,URINE NEGATIVE (NEGATIVE); MDMA (ECSTASY), URINE NEGATIVE (NEGATIVE); METHADONE,URINE NEGATIVE (NEGATIVE); METHAMPHETAMINES,URINE NEGATIVE (NEGATIVE); OPIATES,URINE NEGATIVE (NEGATIVE); OXYCODONE,URINE NEGATIVE (NEGATIVE); PHENCYCLIDINE,URINE NEGATIVE (NEGATIVE); TCA,URINE NEGATIVE (NEGATIVE)
[2022-09-16 22:57] LABS: CORONAVIRUS COVID-19 NAA NEGATIVE (NEGATIVE)
== END 2022-09-16 23:16 | disposition home or self-care (01) ==
LOC: DL.ED 21:33
DX: K52.9 Noninfective gastroenteritis and colitis, unspecified (principal); E11.65 Type 2 diabetes mellitus with hyperglycemia; Z72.0 Tobacco use; Z79.4 Long term (current) use of insulin; Z79.899 Other long term (current) drug therapy; Z20.822 Contact with and (suspected) exposure to COVID-19
CPT/HCPCS: 0240U; 36415; 80053; 80143; 80305; 80307; 81003; 82009; 82150; 82947; 83605; 83690; 83735; 85025; 87040; 96360; 99284; J7030

== ENCOUNTER 2022-10-21 17:04 | Emergency (ER) | payer BC ==
[2022-10-21] MEDS ORDERED: Tetracaine HCl/PF 0.5% 4 ML Bottle EYERT ONE (17:48)
[2022-10-21 18:21] VITALS: BP 128/79; PULSE 95
[2022-10-21] MEDS ORDERED: Fluorescein 1 MG Ophth Strip ONE (19:28)
== END 2022-10-21 20:50 | disposition home or self-care (01) ==
LOC: DL.ED 17:04
DX: S05.01XA Injury of conjunctiva and corneal abrasion without foreign body, right eye, initial encounter (principal); E11.9 Type 2 diabetes mellitus without complications; Z72.0 Tobacco use; Z79.84 Long term (current) use of oral hypoglycemic drugs; Z79.82 Long term (current) use of aspirin; Y29.XXXA Contact with blunt object, undetermined intent, initial encounter
CPT/HCPCS: 99283; J3490

== ENCOUNTER 2023-03-17 16:57 | Emergency (ER) | payer BC ==
[2023-03-17] MEDS ORDERED: Sodium Chloride 0.9% 1,000 ML IV ONE (17:04)
[2023-03-17 17:13] LABS: BASOPHILS PERCENT AUTO 0.6 % (0.0-1.0); EOSINOPHILS PERCENT AUTO 1.7 % (1.0-3.0); HEMATOCRIT 42.2 % (40.0-54.0); HEMOGLOBIN 14.7 g/dL (14.0-18.0); LYMPHOCYTES PERCENT AUTO 22.3 % (20.5-50.1); MEAN CORPUSCULAR HEMOGLOBIN 29.2 pg (27.0-34.0); MEAN CORPUSCULAR HGB CONC 34.8 g/dL (33.0-35.0); MEAN CORPUSCULAR VOLUME 83.7 fL (80-100); MONOCYTES PERCENT AUTO 7.9 % (2-8); NEUTROPHILS PERCENT AUTO 67.5 % (42.2-75.2); PLATELET COUNT,PLT 194 10^3/uL (150-450); RED BLOOD CELL COUNT 5.04 10^6/uL (4.6-6.2); WHITE BLOOD CELL COUNT,WBC 8.1 10^3/uL (5.0-10.0)
[2023-03-17 17:16] VITALS: BP 104/77; PULSE 123
[2023-03-17 17:38] LABS: A/G RATIO 1.3; ANION GAP 14.8 mEq/L (7-13); BILIRUBIN TOTAL 0.7 mg/dL (0.2-1.0); BUN/CREATININE RATIO 26.3 (No establ ref range); CALCIUM 9.2 mg/dL (8.5-10.1); CREATININE 0.95 mg/dL (0.70-1.30); EST CRCL DRUG DOSING (CG) 98.32 mL/min; POTASSIUM,K 3.8 mmol/L (3.5-5.1)
== END 2023-03-17 19:23 | disposition home or self-care (01) ==
LOC: DL.ED 16:57
DX: E86.0 Dehydration (principal); E78.00 Pure hypercholesterolemia, unspecified; E11.9 Type 2 diabetes mellitus without complications; Z86.16 Personal history of COVID-19; Z79.899 Other long term (current) drug therapy
CPT/HCPCS: 36415; 70450; 71045; 80053; 82947; 84484; 85025; 85379; 93005; 93010; 96360; 99284; 99285-25; J7030

== ENCOUNTER 2023-08-23 09:00 | Emergency (ER) | payer BC ==
[2023-08-23] MEDS ORDERED: Sodium Chloride 0.9% 10 ML Syringe FLUSH PRN (09:09)
[2023-08-23] MEDS ORDERED: 50% Dextrose in Water 50 ML Syringe IVPUSH ONE (09:09)
[2023-08-23] MEDS ORDERED: Sodium Chloride 0.9% 1,000 ML IV ONE (09:17)
[2023-08-23 09:23] LABS: BASOPHILS PERCENT AUTO 0.5 % (0.0-1.0); EOSINOPHILS PERCENT AUTO 3.8 % (1.0-3.0); HEMATOCRIT 40.5 % (40.0-54.0); HEMOGLOBIN 13.8 g/dL (14.0-18.0); LYMPHOCYTES PERCENT AUTO 33.4 % (20.5-50.1); MEAN CORPUSCULAR HEMOGLOBIN 29.9 pg (27.0-34.0); MEAN CORPUSCULAR HGB CONC 34.1 g/dL (33.0-35.0); MEAN CORPUSCULAR VOLUME 87.7 fL (80-100); NEUTROPHILS PERCENT AUTO 53.3 % (42.2-75.2); PLATELET COUNT,PLT 241 10^3/uL (150-450); RED BLOOD CELL COUNT 4.62 10^6/uL (4.6-6.2); WHITE BLOOD CELL COUNT,WBC 11.4 10^3/uL (5.0-10.0)
[2023-08-23 09:25] VITALS: BP 163/95; PULSE 78
[2023-08-23 09:42] LABS: A/G RATIO 1.3; ALBUMIN 3.8 g/dL (3.4-5.0); ANION GAP 14.4 mEq/L (7-13); BILIRUBIN TOTAL 0.4 mg/dL (0.2-1.0); BUN/CREATININE RATIO 30.9 (No establ ref range); CALCIUM 8.7 mg/dL (8.5-10.1); CREATININE 0.68 mg/dL (0.70-1.30); EST CRCL DRUG DOSING (CG) 142.71 mL/min; PROTEIN TOTAL,TP 6.8 g/dL (6.4-8.2)
[2023-08-23 09:44] LABS: POTASSIUM,K 2.4 mmol/L (3.5-5.1)
[2023-08-23] MEDS ORDERED: Potassium Chloride 10 MEQ Tab.ER PO ONE (09:45)
[2023-08-23] MEDS ORDERED: Potassium Chloride 20 MEQ in Premix Bag 1 BAG IV ONE (09:46)
[2023-08-23] MEDS ORDERED: Ondansetron 4 MG/2 ML SDV IV ONE (09:46)
[2023-08-23] MEDS ORDERED: Lidocaine 1% 5 ML VIAL INJECT ONE (09:47)
[2023-08-23 11:17] LABS: APPEARANCE,URINE CLEAR (CLEAR); BILIRUBIN,URINE NEGATIVE (NEGATIVE); COLOR,URINE YELLOW (YELLOW); GLUCOSE,URINE 500 (NEGATIVE); KETONES,URINE NEGATIVE (NEGATIVE); LEUKOCYTE ESTERASE,URINE NEGATIVE (NEGATIVE); NITRITE,URINE NEGATIVE (NEGATIVE); OCCULT BLOOD,URINE NEGATIVE (NEGATIVE); PROTEIN,URINE NEGATIVE (NEGATIVE); UROBILINOGEN,URINE 0.2 mg/dL (0.2-1.0)
== END 2023-08-23 13:22 ==
LOC: DL.ED 09:00
DX: E11.649 Type 2 diabetes mellitus with hypoglycemia without coma (principal); E87.6 Hypokalemia; I10 Essential (primary) hypertension; Z79.01 Long term (current) use of anticoagulants; Z79.4 Long term (current) use of insulin; Z79.84 Long term (current) use of oral hypoglycemic drugs; Z86.16 Personal history of COVID-19; Z79.899 Other long term (current) drug therapy
CPT/HCPCS: 36415; 80053; 81003; 82947; 84132; 85025; 96361; 96365; 96366; 96375; 99284; A9270; J2405; J3480; J7030; J3490

== ENCOUNTER 2024-01-10 05:53 | Day surgery (SDC) | payer BC ==
[2024-01-10] MEDS ORDERED: Midazolam 1 MG/ML 2 ML SDV IV ONE (05:54)
[2024-01-10] MEDS ORDERED: fentaNYL 100 MCG/2 ML SDV IV ONE (05:54)
[2024-01-10] MEDS ORDERED: Midazolam 1 MG/ML 2 ML SDV ONE (06:15)
[2024-01-10] MEDS ORDERED: fentaNYL 100 MCG/2 ML SDV ONE (06:15)
[2024-01-10] MEDS: Dextrose 5%-0.45% NaCl 1,000 ML IV SCH (06:40)
[2024-01-10] MEDS: fentaNYL 100 MCG/2 ML SDV IV ONE ×6 (07:11→07:30)
[2024-01-10] MEDS: Midazolam 1 MG/ML 2 ML SDV IV ONE ×6 (07:12→07:23)
[2024-01-10 09:24] VITALS: BP 122/69; PULSE 62
== END 2024-01-10 09:25 | disposition home or self-care (01) ==
LOC: DL.ENDO 05:53
PROVIDERS: ATTEND Internal Medicine Gastroenterology
DX: D12.5 Benign neoplasm of sigmoid colon (principal); D12.3 Benign neoplasm of transverse colon; E11.9 Type 2 diabetes mellitus without complications; E78.5 Hyperlipidemia, unspecified; F17.210 Nicotine dependence, cigarettes, uncomplicated
CPT/HCPCS: J2250; J3010; J7042

== ENCOUNTER 2024-04-28 20:04 | Emergency (ER) | payer SELFPAY ==
[2024-04-28 19:59] LABS: BASOPHILS PERCENT AUTO 0.7 % (0.0-1.0); EOSINOPHILS PERCENT AUTO 4.1 % (1.0-3.0); HEMATOCRIT 37.4 % (40.0-54.0); HEMOGLOBIN 12.5 g/dL (14.0-18.0); LYMPHOCYTES PERCENT AUTO 25.3 % (20.5-50.1); MEAN CORPUSCULAR HEMOGLOBIN 29.3 pg (27.0-34.0); MEAN CORPUSCULAR HGB CONC 33.4 g/dL (33.0-35.0); MEAN CORPUSCULAR VOLUME 87.6 fL (80-100); MONOCYTES PERCENT AUTO 10.2 % (2-8); NEUTROPHILS PERCENT AUTO 59.7 % (42.2-75.2); PLATELET COUNT,PLT 192 10^3/uL (150-450); RED BLOOD CELL COUNT 4.27 10^6/uL (4.6-6.2); WHITE BLOOD CELL COUNT,WBC 7.3 10^3/uL (5.0-10.0)
[2024-04-28 20:20] LABS: A/G RATIO 1.4; ALANINE AMINOTRANSFERASE,ALT 50 U/L (16-63); ALBUMIN 3.7 g/dL (3.4-5.0); ALKALINE PHOSPHATASE 64 U/L (46-116); ANION GAP 9.2 mEq/L (7-13); ASPARTATE AMNIOTRANSFERASE,AST 48 U/L (15-37); BILIRUBIN TOTAL 0.3 mg/dL (0.2-1.0); BLOOD UREA NITROGEN,BUN 21 mg/dL (7-18); BUN/CREATININE RATIO 23.6 (No establ ref range); CALCIUM 8.9 mg/dL (8.5-10.1); CARBON DIOXIDE,CO2 32 mmol/L (21-32); CHLORIDE,CL 101 mmol/L (98-107); CREATININE 0.89 mg/dL (0.70-1.30); GLUCOSE RANDOM 181 mg/dL (70-99); MAGNESIUM 1.7 mg/dL (1.8-2.4); POTASSIUM,K 3.2 mmol/L (3.5-5.1); PROTEIN TOTAL,TP 6.4 g/dL (6.4-8.2); SODIUM,NA 139 mmol/L (136-145)
[2024-04-28 20:21] LABS: ESTIMATED GFR 101 mL/min (>=60); ETHANOL BLOOD MEDICAL < 3 mg/dL (0)
[2024-04-28 20:38] VITALS: BP 129/78; PULSE 82
[2024-04-28] MEDS: Magnesium Sulfate/Water Premix 2 GM in Premix Bag 1 BAG IV ONE (21:10)
[2024-04-28] MEDS: Potassium Chloride 10 MEQ in Premix Bag 1 BAG IV ONE (21:10)
[2024-04-28] MEDS: Potassium Chloride 10 MEQ Tab.ER PO ONE (21:10)
== END 2024-04-28 22:16 | disposition home or self-care (01) ==
LOC: DL.ED 20:04
DX: E11.649 Type 2 diabetes mellitus with hypoglycemia without coma (principal); E87.6 Hypokalemia; E83.42 Hypomagnesemia; I25.10 Atherosclerotic heart disease of native coronary artery without angina pectoris; E78.00 Pure hypercholesterolemia, unspecified; E11.40 Type 2 diabetes mellitus with diabetic neuropathy, unspecified; F17.200 Nicotine dependence, unspecified, uncomplicated; Z86.16 Personal history of COVID-19; Z79.4 Long term (current) use of insulin; Z79.84 Long term (current) use of oral hypoglycemic drugs; Z79.82 Long term (current) use of aspirin; Z79.899 Other long term (current) drug therapy
CPT/HCPCS: 36415; 80053; 80307; 82947; 83735; 84484; 85025; 93005; 96365; 96368; 99285-25; A9270-GY; J3475; J3480

== ENCOUNTER 2024-12-27 08:17 | Emergency (ER) | payer BC ==
[2024-12-27 08:30] VITALS: BP 134/77; PULSE 105
== END 2024-12-27 09:36 | disposition home or self-care (01) ==
LOC: DL.ED 08:17
DX: S92.352A Displaced fracture of fifth metatarsal bone, left foot, initial encounter for closed fracture (principal); E78.00 Pure hypercholesterolemia, unspecified; E11.9 Type 2 diabetes mellitus without complications; Z86.16 Personal history of COVID-19; Z79.899 Other long term (current) drug therapy; F17.200 Nicotine dependence, unspecified, uncomplicated; Z76.4 Other boarder to healthcare facility; W22.8XXA Striking against or struck by other objects, initial encounter
CPT/HCPCS: 28515; 73620-LT; 99283; 99283-25

== ENCOUNTER 2025-02-01 05:41 | Emergency (ER) | payer BC ==
[2025-02-01 06:15] LABS: BASOPHILS PERCENT AUTO 0.5 % (0.0-1.0); EOSINOPHILS PERCENT AUTO 3.1 % (1.0-3.0); LYMPHOCYTES PERCENT AUTO 17.3 % (20.5-50.1); MONOCYTES PERCENT AUTO 9.5 % (2-8); NEUTROPHILS PERCENT AUTO 69.6 % (42.2-75.2); PLATELET COUNT,PLT 204 10^3/uL (150-450); RED BLOOD CELL COUNT 4.58 10^6/uL (4.6-6.2); WHITE BLOOD CELL COUNT,WBC 8.0 10^3/uL (5.0-10.0)
[2025-02-01 06:37] LABS: ALANINE AMINOTRANSFERASE,ALT 29.0 U/L (16-63); ASPARTATE AMNIOTRANSFERASE,AST 25.0 U/L (15-37); BILIRUBIN TOTAL 0.4 mg/dL (0.2-1.0); BLOOD UREA NITROGEN,BUN 20.0 mg/dL (7-18); CARBON DIOXIDE,CO2 28.0 mmol/L (21-32); CHLORIDE,CL 106.0 mmol/L (98-107); CREATININE 1.04 mg/dL (0.70-1.30); EST CRCL DRUG DOSING (CG) 92.21 mL/min; GLUCOSE RANDOM 77.0 mg/dL (70-99); POTASSIUM,K 3.6 mmol/L (3.5-5.1); PROTEIN TOTAL,TP 6.4 g/dL (6.4-8.2); SODIUM,NA 138.0 mmol/L (136-145)
[2025-02-01 06:38] LABS: A/G RATIO 1.0; ESTIMATED GFR 84.0 mL/min (>=60)
[2025-02-01 06:50] LABS: APPEARANCE,URINE CLEAR (CLEAR); GLUCOSE,URINE NEGATIVE (NEGATIVE); OCCULT BLOOD,URINE LARGE (NEGATIVE)
[2025-02-01 07:02] LABS: EPITHELIAL CELLS,URINE OCCASIONAL /HPF (NOT SEEN)
[2025-02-01] MEDS: fentaNYL 100 MCG/2 ML SDV IVPUSH ONE (07:06)
[2025-02-01] MEDS: Ketorolac 30 MG/ML SDV IVPUSH ONE (08:34)
[2025-02-01] MEDS: Ondansetron 4 MG/2 ML SDV IVPUSH ONE (08:35)
[2025-02-01] MEDS: Lactated Ringers 1,000 ML IV SCH (08:36)
[2025-02-01] MEDS: Sodium Chloride 0.9% 10 ML Syringe FLUSH PRN (08:37)
[2025-02-01 09:00] VITALS: BP 133/101; PULSE 67
== END 2025-02-01 09:09 | disposition home or self-care (01) ==
LOC: DL.ED 05:41
DX: N13.2 Hydronephrosis with renal and ureteral calculous obstruction (principal); I25.10 Atherosclerotic heart disease of native coronary artery without angina pectoris; E78.00 Pure hypercholesterolemia, unspecified; E11.9 Type 2 diabetes mellitus without complications; F17.210 Nicotine dependence, cigarettes, uncomplicated; Z79.4 Long term (current) use of insulin; Z79.899 Other long term (current) drug therapy; Z86.16 Personal history of COVID-19
CPT/HCPCS: 36415; 74176; 80053; 81001; 83690; 83735; 84484; 85025; 96374; 96375; 99284; 99284-25; J1885; J2405; J3010; J7120

== ENCOUNTER 2025-02-02 15:21 | Inpatient (IN) | payer BC ==
[2025-02-02 16:32] LABS: BASOPHILS PERCENT AUTO 0.2 % (0.0-1.0); EOSINOPHILS PERCENT AUTO 0.1 % (1.0-3.0); LYMPHOCYTES PERCENT AUTO 5.8 % (20.5-50.1); MONOCYTES PERCENT AUTO 10.2 % (2-8); NEUTROPHILS PERCENT AUTO 83.7 % (42.2-75.2); PLATELET COUNT,PLT 204 10^3/uL (150-450); RED BLOOD CELL COUNT 4.68 10^6/uL (4.6-6.2); WHITE BLOOD CELL COUNT,WBC 15.1 10^3/uL (5.0-10.0)
[2025-02-02] MEDS: Ondansetron 4 MG/2 ML SDV IVPUSH ONE (16:32)
[2025-02-02 16:48] LABS: A/G RATIO 0.97; ALANINE AMINOTRANSFERASE,ALT 22.0 U/L (16-63); ASPARTATE AMNIOTRANSFERASE,AST 18.0 U/L (15-37); BILIRUBIN TOTAL 0.6 mg/dL (0.2-1.0); BLOOD UREA NITROGEN,BUN 32.0 mg/dL (7-18); CARBON DIOXIDE,CO2 26.0 mmol/L (21-32); CHLORIDE,CL 102.0 mmol/L (98-107); CREATININE 1.6 mg/dL (0.70-1.30); EST CRCL DRUG DOSING (CG) 59.94 mL/min; ESTIMATED GFR 50.0 mL/min (>=60); GLUCOSE RANDOM 149.0 mg/dL (70-99); POTASSIUM,K 4.1 mmol/L (3.5-5.1); PROTEIN TOTAL,TP 6.5 g/dL (6.4-8.2); SODIUM,NA 136.0 mmol/L (136-145)
[2025-02-02 16:59] LABS: APPEARANCE,URINE CLEAR (CLEAR); GLUCOSE,URINE NEGATIVE (NEGATIVE); OCCULT BLOOD,URINE LARGE (NEGATIVE)
[2025-02-02 17:13] LABS: EPITHELIAL CELLS,URINE FEW /HPF (NOT SEEN)
[2025-02-02] MEDS ORDERED: Ondansetron 4 MG/2 ML SDV IVPUSH PRN (18:23)
[2025-02-02] MEDS ORDERED: 50% Dextrose in Water 50 ML Syringe IVPUSH PRN (18:24)
[2025-02-02] MEDS: Lactated Ringers 1,000 ML IV SCH (18:39)
[2025-02-02] MEDS: Heparin Sodium 5,000 Units/ML Vial SUBCUT SCH (21:35)
[2025-02-02] MEDS: Insulin Glarg,Human.Rec.Analog 100 Unit/ML 10 ML Vial SUBCUT SCH (21:35)
[2025-02-03 06:00] LABS: BASOPHILS PERCENT AUTO 0.5 % (0.0-1.0); EOSINOPHILS PERCENT AUTO 1.0 % (1.0-3.0); LYMPHOCYTES PERCENT AUTO 16.6 % (20.5-50.1); MONOCYTES PERCENT AUTO 12.3 % (2-8); NEUTROPHILS PERCENT AUTO 69.6 % (42.2-75.2); PLATELET COUNT,PLT 185 10^3/uL (150-450); RED BLOOD CELL COUNT 4.25 10^6/uL (4.6-6.2); WHITE BLOOD CELL COUNT,WBC 8.1 10^3/uL (5.0-10.0)
[2025-02-03 06:14] LABS: BLOOD UREA NITROGEN,BUN 22.0 mg/dL (7-18); CARBON DIOXIDE,CO2 29.0 mmol/L (21-32); CHLORIDE,CL 107.0 mmol/L (98-107); CREATININE 0.9 mg/dL (0.70-1.30); EST CRCL DRUG DOSING (CG) 106.56 mL/min; GLUCOSE RANDOM 91.0 mg/dL (70-99); POTASSIUM,K 3.7 mmol/L (3.5-5.1); SODIUM,NA 140.0 mmol/L (136-145)
[2025-02-03 06:16] LABS: ESTIMATED GFR 100.0 mL/min (>=60)
[2025-02-03 12:24] VITALS: BP 136/83; PULSE 81
== END 2025-02-03 13:10 | disposition home or self-care (01) | DRG 720 ==
LOC: DL.ED 15:21 → DL.MS 17:10
PROVIDERS: ADMIT Internal Medicine; ATTEND Student in an Organized Health Care Education/Training Program
DX: A41.9 Sepsis, unspecified organism (principal); N17.9 Acute kidney failure, unspecified; N13.2 Hydronephrosis with renal and ureteral calculous obstruction; H91.90 Unspecified hearing loss, unspecified ear; H54.7 Unspecified visual loss; I25.10 Atherosclerotic heart disease of native coronary artery without angina pectoris; E78.00 Pure hypercholesterolemia, unspecified; M54.9 Dorsalgia, unspecified; G89.29 Other chronic pain; E11.42 Type 2 diabetes mellitus with diabetic polyneuropathy; F41.9 Anxiety disorder, unspecified; F32.A Depression, unspecified; E86.0 Dehydration; E11.65 Type 2 diabetes mellitus with hyperglycemia; R01.1 Cardiac murmur, unspecified; K64.9 Unspecified hemorrhoids; B35.1 Tinea unguium; Z79.84 Long term (current) use of oral hypoglycemic drugs; Z86.0100 Personal history of colon polyps, unspecified; Z86.718 Personal history of other venous thrombosis and embolism; Z86.16 Personal history of COVID-19; Z98.890 Other specified postprocedural states; Z79.4 Long term (current) use of insulin; Z79.82 Long term (current) use of aspirin; Z79.899 Other long term (current) drug therapy
CPT/HCPCS: 36415; 80048; 80053; 81001; 83036; 83605; 83735; 84145; 85025; 87040; 96361; 96374; 96375; 99223; 99238; 99284; 99284-25; A9270-GY; J0696; J1644; J1815-GY; J2270; J2405; J7030; J7120

== ENCOUNTER 2025-05-25 12:00 | Emergency (ER) | payer BC ==
[2025-05-25] MEDS ORDERED: Sodium Chloride 0.9% 10 ML Syringe FLUSH PRN ×2 (12:05)
[2025-05-25 12:36] LABS: BASOPHILS PERCENT AUTO 0.5 % (0.0-1.0); EOSINOPHILS PERCENT AUTO 1.2 % (1.0-3.0); LYMPHOCYTES PERCENT AUTO 16.5 % (20.5-50.1); MONOCYTES PERCENT AUTO 6.9 % (2-8); NEUTROPHILS PERCENT AUTO 74.9 % (42.2-75.2); PLATELET COUNT,PLT 226 10^3/uL (150-450); RED BLOOD CELL COUNT 4.85 10^6/uL (4.6-6.2); WHITE BLOOD CELL COUNT,WBC 9.3 10^3/uL (5.0-10.0)
[2025-05-25 12:50] LABS: INR 1.0 (0.9-1.2)
[2025-05-25 12:57] LABS: A/G RATIO 1.4; ALANINE AMINOTRANSFERASE,ALT 19.0 U/L (16-63); ASPARTATE AMNIOTRANSFERASE,AST 11.0 U/L (15-37); BILIRUBIN TOTAL 0.5 mg/dL (0.2-1.0); BLOOD UREA NITROGEN,BUN 20.0 mg/dL (7-18); CARBON DIOXIDE,CO2 29.0 mmol/L (21-32); CHLORIDE,CL 102.0 mmol/L (98-107); CREATININE 1.23 mg/dL (0.70-1.30); EST CRCL DRUG DOSING (CG) 77.04 mL/min; GLUCOSE RANDOM 97.0 mg/dL (70-99); POTASSIUM,K 4.1 mmol/L (3.5-5.1); PROTEIN TOTAL,TP 6.7 g/dL (6.4-8.2); SODIUM,NA 140.0 mmol/L (136-145)
[2025-05-25 12:58] LABS: ESTIMATED GFR 68.0 mL/min (>=60)
[2025-05-25 14:25] VITALS: BP 127/80; PULSE 90
== END 2025-05-25 13:42 | disposition home or self-care (01) ==
LOC: DL.ED 12:00
DX: R06.02 Shortness of breath (principal); E78.00 Pure hypercholesterolemia, unspecified; I25.10 Atherosclerotic heart disease of native coronary artery without angina pectoris; E11.9 Type 2 diabetes mellitus without complications; Z79.4 Long term (current) use of insulin; Z79.82 Long term (current) use of aspirin
CPT/HCPCS: 36415; 71045; 80053; 84484; 85025; 85379; 85610; 93005; 93010; 99284; 99285